=== PATIENT | male | born 1955 | race Caucasian/White ===

== ENCOUNTER 2019-06-29 23:21 | Emergency (ER) | payer OTHER, SELFPAY ==
[~2019-06-29] VITALS: Ht 172.7 cm; Wt 102.3 kg
[2019-06-29 23:21] VITALS: BP 169/85
[2019-06-29] MEDS ORDERED: CILO100T PO (23:41)
[2019-06-29] MEDS ORDERED: DULO1CAP6 PO (23:41)
[2019-06-29] MEDS ORDERED: GABA-843 PO (23:41)
[2019-06-29] MEDS ORDERED: ASPI81TA85 PO (23:41)
[2019-06-29] MEDS ORDERED: REFR0.5D8 OP (23:41)
[2019-06-29] MEDS ORDERED: NESI25TA PO (23:41)
[2019-06-29] MEDS ORDERED: CAPS42.53 EX (23:41)
[2019-06-29] MEDS ORDERED: GLIP10TA PO (23:41)
== END 2019-06-30 00:49 | disposition home or self-care (01) ==
LOC: M ED 23:21
DX: H57.9 Unspecified disorder of eye and adnexa (principal); E11.9 Type 2 diabetes mellitus without complications; F17.200 Nicotine dependence, unspecified, uncomplicated; J44.9 Chronic obstructive pulmonary disease, unspecified; Q27.30 Arteriovenous malformation, site unspecified; Z79.82 Long term (current) use of aspirin; Z79.899 Other long term (current) drug therapy

== ENCOUNTER → 2019-10-31 | Outpatient (CLI) | payer OTHER ==
[~2019-10-31] MED LIST: ASPI81TA85 PO; CAPS42.53 EX; CILO100T PO; DULO1CAP6 PO; GABA-843 PO; GLIP10TA PO; NESI25TA PO; REFR0.5D8 OP
--- NOTE | 2019-10-31 13:41 | REP ---
REASON: Atherosclerosis. PRIORS: None. RIGHT: The ankle brachial index is 0.7. ELECTRONIC SYSTEMS SECURITY ASSESSMENT 130.6 cm/s Biphasic Profunda 127.0 cm/s Triphasic SFA proximal occluded SFA mid occluded SFA distal occluded Popliteal 60.1 to 42.7 cm/s Monophasic NORBERTO proximal 24.7 cm/s Monophasic Tibioperoneal trunk 28.5 cm/s Monophasic CHARGING MACHINE OPERATOR proximal 34.2 cm/s Monophasic CHARGING MACHINE OPERATOR distal 40.2 cm/s Monophasic NORBERTO distal 20.2 cm/s Monophasic LEFT The ankle brachial index is 1.7. ELECTRONIC SYSTEMS SECURITY ASSESSMENT 63.6 cm/s Biphasic Profunda 55.0 cm/s Triphasic SFA proximal occluded SFA mid occluded SFA distal occluded Popliteal 405.9 cm/s Monophasic NORBERTO proximal 20.6 cm/s Monophasic Tibioperoneal trunk 23.7 cm/s Monophasic CHARGING MACHINE OPERATOR proximal 44.3 cm/s Monophasic CHARGING MACHINE OPERATOR distal 34.4 cm/s Monophasic NORBERTO distal 22.2 cm/s Monophasic Note made of retrograde flow in the right popliteal artery. The elevated peak systolic velocity of the left popliteal artery is consistent with high grade stenosis. Electronically Signed by Luther Landa DO 10/31/2019 02:04 P
== END ==
LOC: M RAD 10:01
PROVIDERS: ATTEND Physician Assistant
DX: I70.213 Atherosclerosis of native arteries of extremities with intermittent claudication, bilateral legs (principal)

== ENCOUNTER 2020-01-22 10:00 | Inpatient (IN) | payer OTHER ==
[~2020-01-22 10:00] MED LIST changes: -ASPI81TA85 PO; +ASPI81TA86 PO; -CAPS42.53 EX; +CAPS42.54 EX; +ceFAZolin 2 GM/D5W 50 ML IV BAG (J0690 PER 500MG) ONE
[2020-01-22] MEDS ORDERED: MIDAZOLAM INJ 2MG/2ML VIAL (J2250 PER 1MG) ONE (10:29)
[2020-01-22] MEDS ORDERED: fentaNYL 250 MCG/5 ML INJECTION (J3010) ONE (10:29)
[2020-01-22] MEDS ORDERED: ROCURONIUM BROMIDE 50 MG/5 ML VIAL ONE ×5 (10:29→14:34)
[2020-01-22] MEDS ORDERED: propofoL 200 MG/20 ML VIAL ONE (10:29)
[2020-01-22] MEDS ORDERED: LIDOCAINE 2% 100MG/5ML SDV (FOR ANES.) ONE (10:29)
[2020-01-22] MEDS ORDERED: HEPARIN SOD (PORCINE) 5000UNITS/ML 1ML VIAL/SYRINGE ONE ×4 (11:33→14:06)
[2020-01-22] MEDS ORDERED: BUPIVACAINE/EPIN 0.5% 30 ML VIAL ONE (11:33)
[2020-01-22] MEDS ORDERED: ONDANSETRON 4MG/2ML VIAL ONE (14:34)
[2020-01-22] MEDS ORDERED: SUGAMMADEX SODIUM 500 MG/5 ML VIAL (BRIDION) ONE (14:34)
[2020-01-22] MEDS ORDERED: fentaNYL 100 MCG/2 ML INJECTION (J3010) ONE ×2 (15:01→15:53)
[2020-01-22] MEDS ORDERED: LABETALOL 100MG/20ML VIAL ONE (17:18)
[2020-01-22] MEDS ORDERED: amLODIPine 5 MG TAB ONE (17:26)
[2020-01-22] MEDS ORDERED: PERCOCET 5MG/325MG TAB ONE (23:16)
[2020-01-22] MEDS ORDERED: traZODone 100 MG TAB ONE (23:16)
[2020-01-22] MEDS ORDERED: CEPACOL LOZENGE ONE (23:16)
[2020-01-23] MEDS ORDERED: diazePAM 5 MG TAB ONE (02:25)
[2020-01-23] MEDS ORDERED: oxyCODONE 5MG TAB ONE ×2 (02:29→21:24)
[2020-01-23] MEDS ORDERED: PERCOCET 5MG/325MG TAB ONE ×4 (04:25→18:32)
[2020-01-23] MEDS ORDERED: ASPIRIN 81 MG ENTERIC TAB ONE (08:33)
[2020-01-23] MEDS ORDERED: HumaLOG INSULIN (NovoLOG) PER UNIT ONE (08:33)
[2020-01-23] MEDS ORDERED: SERTRALINE 100 MG TAB ONE (08:33)
[2020-01-23] MEDS ORDERED: ONDANSETRON 4MG/2ML VIAL ONE (17:10)
[2020-01-23] MEDS ORDERED: traZODone 100 MG TAB ONE (21:24)
[2020-01-23] MEDS ORDERED: PERCOCET 5MG/325MG TAB As Ordered ONE (23:50)
[2020-01-24] MEDS ORDERED: PERCOCET 5MG/325MG TAB As Ordered ONE ×2 (04:56→09:43)
[2020-01-24] MEDS ORDERED: SERTRALINE 100 MG TAB As Ordered ONE (09:41)
[2020-01-24] MEDS ORDERED: ASPIRIN 81 MG ENTERIC TAB As Ordered ONE (09:42)
[2020-01-24] MEDS ORDERED: amLODIPine 5 MG TAB As Ordered ONE (09:42)
[2020-03-14 16:43] LABS: HEMATOCRIT 46.5 % (42.0-52.0); HEMOGLOBIN 15.3 g/dl (13.5-17.5); MEAN CORPUSCULAR HEMOGLOBIN 31.2 pg (27.0-33.0); MEAN CORPUSCULAR HGB CONC 32.9 g/dl (32.0-36.5); MEAN CORPUSCULAR VOLUME 94.7 fl (80.0-96.0); PLATELET COUNT, AUTOMATED 162 10^3/uL (150-450); RED BLOOD COUNT 4.91 10^6/uL (4.30-6.10); WHITE BLOOD COUNT 8.5 10^3/uL (4.0-10.0)
[2020-03-14 17:29] LABS: INR 0.92; PARTIAL THROMBOPLASTIN TIME 34.5 SECONDS (24.2-38.5); PROTHROMBIN TIME 12.5 SECONDS (12.5-14.3)
[2020-03-20 19:23] LABS: BASO % 0.2 % (0.0-1.0); EOS # 0.2 10^3/uL (0.0-0.5); EOS % 2.6 % (0.0-3.0); HEMATOCRIT 39.3 % (42.0-52.0); LYMPH % 11.7 % (24.0-44.0); MEAN CORPUSCULAR HEMOGLOBIN 30.9 pg (27.0-33.0); MEAN CORPUSCULAR HGB CONC 32.6 g/dl (32.0-36.5); MEAN CORPUSCULAR VOLUME 94.9 fl (80.0-96.0); MONO # 0.7 10^3/uL (0.0-0.8); MONO % 7.8 % (0.0-5.0); NEUTROPHILS # 6.7 10^3/uL (1.5-8.5); PLATELET COUNT, AUTOMATED 122 10^3/uL (150-450); RED BLOOD COUNT 4.14 10^6/uL (4.30-6.10); WHITE BLOOD COUNT 8.7 10^3/uL (4.0-10.0)
[2020-03-20 19:24] LABS: HEMOGLOBIN 12.8 g/dl (13.5-17.5)
[2020-03-21 18:14] LABS: HEMATOCRIT 36.8 % (42.0-52.0); MEAN CORPUSCULAR HEMOGLOBIN 31.2 pg (27.0-33.0); MEAN CORPUSCULAR HGB CONC 32.6 g/dl (32.0-36.5); MEAN CORPUSCULAR VOLUME 95.6 fl (80.0-96.0); PLATELET COUNT, AUTOMATED 115 10^3/uL (150-450); RED BLOOD COUNT 3.85 10^6/uL (4.30-6.10); WHITE BLOOD COUNT 8.9 10^3/uL (4.0-10.0)
[2020-04-14 22:27] LABS: CK-MB VALUE MASS < 1.0 NG/ML (<3.6); CPK CREATINE PHOSPHOKINASE 61 U/L (39-308); MB/CK RELATIVE INDEX 1.63 (< OR =4)
[2020-04-18 05:27] LABS: BLOOD UREA NITROGEN 14 MG/DL (7-18); CALCIUM LEVEL 8.5 MG/DL (8.8-10.2); CARBON DIOXIDE LEVEL 34 MEQ/L (21-32); CHLORIDE LEVEL 102 MEQ/L (98-107); CREATININE FOR GFR 1.01 MG/DL (0.70-1.30); GLOMERULAR FILTRATION RATE > 60.0 (>49); GLUCOSE, FASTING 176 MG/DL (70-100); POTASSIUM SERUM 4.7 MEQ/L (3.5-5.1); SODIUM LEVEL 138 MEQ/L (136-145)
[2020-04-18 11:12] LABS: BLOOD UREA NITROGEN 15 MG/DL (7-18); CALCIUM LEVEL 8.5 MG/DL (8.8-10.2); CARBON DIOXIDE LEVEL 33 MEQ/L (21-32); CHLORIDE LEVEL 99 MEQ/L (98-107); CREATININE FOR GFR 1.09 MG/DL (0.70-1.30); GLOMERULAR FILTRATION RATE > 60.0 (>49); GLUCOSE, FASTING 209 MG/DL (70-100); POTASSIUM SERUM 4.1 MEQ/L (3.5-5.1); SODIUM LEVEL 136 MEQ/L (136-145)
== END 2020-01-24 12:20 | disposition home or self-care (01) | DRG 254 ==
LOC: M MS5PR 16:00 → UNDOADMIN 16:00
PROVIDERS: ADMIT Internal Medicine; ATTEND Surgery Vascular Surgery
PROC: 04CL0ZZ Extirpation of Matter from Left Femoral Artery, Open Approach (ICD-10-PCS; principal; 2020-01-22)
PROC: 04UL0KZ Supplement Left Femoral Artery with Nonautologous Tissue Substitute, Open Approach (ICD-10-PCS; 2020-01-22)
PROC: 041L0KL Bypass Left Femoral Artery to Popliteal Artery with Nonautologous Tissue Substitute, Open Approach (ICD-10-PCS; 2020-01-22)
DX: I70.212 Atherosclerosis of native arteries of extremities with intermittent claudication, left leg (principal); E11.9 Type 2 diabetes mellitus without complications; I10 Essential (primary) hypertension; J44.9 Chronic obstructive pulmonary disease, unspecified; G47.33 Obstructive sleep apnea (adult) (pediatric); Z79.899 Other long term (current) drug therapy; Z79.82 Long term (current) use of aspirin

== ENCOUNTER → 2020-03-05 | Outpatient (CLI) | payer OTHER ==
[~2020-03-05] MED LIST changes: -ceFAZolin 2 GM/D5W 50 ML IV BAG (J0690 PER 500MG) ONE
--- NOTE | 2020-03-10 11:54 | REP ---
BILATERAL LOWER EXTREMITY ARTERIAL DOPPLER ULTRASOUND HISTORY: Atherosclerosis of the [place] arteries with bilateral lower extremity claudication. COMPARISON STUDY: 10/31/2019. FINDINGS: Ankle brachial indices are measured at 0.8 on the right and 1.1 on the left. Heavily calcified arteries are noted bilaterally throughout. Bilateral superficial femoral artery occlusions are observed. Monophasic waveforms are noted in the [place] arteries distal to and including the popliteal arteries. A patent graft is seen from the left common femoral artery to the tibioperoneal trunk on the left side. LEFT LOWER EXTREMITY BYPASS GRAFT VELOCITY CHART: LEFT (cm/s) Proximal anastomosis 194 Proximal thigh 86 Mid thigh 109 Distal thigh 54 Medial aspect knee 65 Proximal calf 56 Distal anastomosis 60 BILATERAL LOWER EXTREMITY ARTERIAL DOPPLER VELOCITY CHART: LEFT (cm/s) RIGHT (cm/s) C APPLICATION DEVELOPER 79 75 Profunda 41 122 Proximal SFA Occluded Occluded Mid SFA Occluded Occluded Distal SFA Occluded Occluded Popliteal 69 Reverse flow 28 Proximal NORBERTO 45 18 Tibioperoneal trunk 43 24 Proximal COMPOSING ROOM SUPERVISOR 81 35 Distal COMPOSING ROOM SUPERVISOR 73 40 Distal NORBERTO 40 17 MTDD
== END ==
LOC: M RAD 12:20
PROVIDERS: ATTEND Physician Assistant
DX: I70.213 Atherosclerosis of native arteries of extremities with intermittent claudication, bilateral legs (principal)

== ENCOUNTER → 2020-03-12 | Outpatient (CLI) | payer OTHER ==
--- NOTE | 2020-03-15 09:20 | ECWPNPC ---
PATIENT NAME: LILIAN IRWIN : 1955 GENDER: MALE VISIT DATE: 03/12/2020 DISCHARGE DATE: 03/12/20 1048 VISIT LOCKED DATE TIME: PHYSICIAN: FRANCISCO CERVANTES RESOURCE: FRANCISCO CERVANTES REASON FOR APPOINTMENT 1. CHRONIC PAIN- WILL BE ACCOMPANIED BY BROTHER HISTORY OF PRESENT ILLNESS DEPRESSION SCREENING: PHQ-9 LITTLE INTEREST OR PLEASURE IN DOING THINGSSEVERAL DAYS FEELING DOWN, DEPRESSED, OR HOPELESSSEVERAL DAYS TROUBLE FALLING OR STAYING ASLEEP, OR SLEEPING TOO MUCHNEARLY EVERY DAY FEELING TIRED OR HAVING LITTLE ENERGYNEARLY EVERY DAY POOR APPETITE OR OVEREATING NEARLY EVERY DAY FEELING BAD ABOUT YOURSELF-OR THAT YOU ARE A FAILURE OR HAVE LET YOURSELF OR YOUR FAMILY DOWN NEARLY EVERY DAY TROUBLE CONCENTRATING ON THINGS, SUCH READING THE NEWSPAPER OR WATCHING TELEVISION NOT AT ALL MOVING OR SPEAKING SO SLOWLY THAT OTHER PEOPLE COULD HAVE NOTICED. OR THE OPPOSITE- BEING SO FIDGETY OR RESTLESS THAT YOU HAVE BEEN MOVING AROUND A LOT MORE THAN USUALNOT AT ALL THOUGHTS THAT YOU WOULD BE BETTER OFF , OR OF HURTING YOURSELF IN SOME WAY?NEARLY EVERY DAY(CONSIDER SUICIDE ASSESSMENT RISK) TOTAL SCORE:17 INTERPRETATIONMODERATELY SEVERE DEPRESSION PHQ-2 (2015 EDITION) LITTLE INTEREST OR PLEASURE IN DOING THINGS?NEARLY EVERY DAY FEELING DOWN, DEPRESSED, OR HOPELESS?NEARLY EVERY DAY TOTAL SCORE6 64-YEAR-OLD MALE IN FOR CHRONIC PAIN FOLLOW-UP. AT LAST CLINIC VISIT HE WAS STARTED ON BACLOFEN AND ADMITS TODAY THAT HE IS FOUND THIS HELPFUL. PAIN CENTER INTAKE QUESTIONS: DO YOU HAVE A HISTORY OF MRSA? :NO DO YOU TAKE A BLOOD THINNERS? :NO DO YOU HAVE ANY BLEEDING DISORDERS? :NO ANY NEW NUMBNESS OR WEAKNESS IN YOUR LEGS OR ARMS? :YES IN BOTH LEGS AND ARMS ANY PACEMAKER,DEFIBRILLATOR, OR DORSAL COLUMN STIMULATOR? :NO DO YOU HAVE ANY RASHES OR OPEN SORES? :NO ARE YOU ALLERGIC TO IV DYE? :NO ARE YOU DIABETIC? :YES ANY NEW PROBLEMS WITH YOUR MEDICATIONS? :NO HAVE YOU RECEIVED A VACCINE IN THE PAST 30 DAYS? :YES FLU VAC ON Sunday03/09/2020 DO YOU PLAN TO RECEIVE A VACCINE IN THE NEXT 21 DAYS? :NO DO YOU NEED ANY PRESCRIPTION? :YES HE WOULD LIKE TO BE PUT ON OXYCDONE DO YOU TAKE ANY IMMUNOSUPPRESSIVE MEDICATIONS? :NO IS THERE A CHANCE YOU COULD BE ? :NO ARE YOU BREAST FEEDING? :NO GENERAL: - -. FALL RISK SCREENING: SCREENING :TWO OR MORE FALLS WITH INJURY IN THE PAST YEAR FELL AND TORE HIS RETINA AND HAS FALLEN WITH A SEIZURE PAIN SCREENING: PATIENT HAS A COMPLAINT OF ACUTE OR CHRONIC PAIN :YES LOCATION OF PAIN:NECK, UPPER BACK, MID BACK, LOW BACK, LEFT HIP, RIGHT HIP INTENSITY OF PAIN (SCALE OF 1 TO 10):8 WHAT DOES YOUR PAIN FEEL LIKE:BURNING, CONTINOUS DURATION:CONSTANT, ALL DAY PAIN IS INCREASED BY:ACTIVITIES, PROLONGED STANDING, OTHERS WALKING, SITTING PAIN IS DECREASED BY:USE OF PAIN MEDICATIONS, OTHERS HEATING PAD AND LAYING DOWN HELPS NURSING NOTE: PATIENT WITH POSITIVE DEPRESSION SCREENING. PATIENT SEES COUNSELOR AT [facility] AND IS CURENTLY ON DEPRESSION MEDICATION. FRANCISCO CERVANTES EXCHANGE CLERK MADE AWARE. CURRENT MEDICATIONS TAKING ALOGLIPTIN BENZOATE 25 MG TABLET 1 TABLET ORALLY ONCE A DAY TAKING ASPIR-LOW 81 MG TABLET DELAYED RELEASE 1 TABLET ORALLY ONCE A DAY TAKING CHOLECALCIFEROL 25 MCG (1000 UT) CAPSULE 2 CAPSULES ORALLY ONCE A DAY TAKING TYLENOL WITH CODEINE #3 300-30 MG TABLET 1 TABLET NEEDED ORALLY TID TAKING GLIPIZIDE 10 MG TABLET 2 TABLETS ORALLY 2 TIMES A DAY TAKING GLUCOSE 4 GM TABLET CHEWABLE DIRECTED ORALLY TAKING HYDROPHILIC - OINTMENT DIRECTED EXTERNALLY TAKING KETOTIFEN FUMARATE 0.025 % SOLUTION 1 DROP INTO BOTH EYES OPHTHALMIC TWICE A DAY TAKING OLODATEROL HCL 2.5 MCG/ACT AEROSOL SOLUTION 2 PUFFS INHALATION ONCE A DAY TAKING PROPRANOLOL HCL 60 MG CAPSULE EXTENDED RELEASE 1 CAPSULE ORALLY DAILY TAKING ROSUVASTATIN CALCIUM 10 MG TABLET 1 TABLET ORALLY ONCE A DAY TAKING SELENIUM SULFIDE 2.5 % SHAMPOO 1 APPLICATION TO WET SCALP EXTERNALLY DAILY TAKING SERTRALINE HCL 50 MG TABLET 1 TABLET ORALLY ONCE A DAY TAKING TESTOSTERONE 1.62 % GEL 2 PUMPS TO SKIN IN THE MORNING TO SHOULDER, UPPER ARMS OR ABDOMEN TRANSDERMAL ONCE A DAY TAKING TRAZODONE HCL 100 MG TABLET 1 TABLET AT BEDTIME ORALLY ONCE A DAY MEDICATION LIST REVIEWED AND RECONCILED WITH THE PATIENT PAST MEDICAL HISTORY CHRONIC PAIN DEPRESSION PTSD ERIKA ESSENTIAL HTN HYPERLIPIDEMIA 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 SIBLINGS HTNSISTER LIVER CIRRHOSIS. SOCIAL HISTORY GENERAL: TOBACCO USE ARE YOU A:FORMER SMOKER HOW LONG HAS IT BEEN SINCE YOU LAST SMOKED?1-5 YEARS LATEX QUESTIONNAIRE LATEX ALLERGY : HAVE YOU EVER DEVELOPED ANY TYPE OF REACTION AFTER HANDLING LATEX PRODUCTS SUCH RUBBER GLOVES, CONDOMS, DIAPHRAGMS, BALLOONS, SOCKS, OR UNDERWEAR?NO LATEX ALLERGY : HAVE YOU EVER DEVELOPED ANY TYPE OF REACTION DURING OR AFTER DENTAL APPOINTMENT, VAGINAL/RECTAL EXAMINATION, SURGICAL PROCEDURE, OR ANY OTHER EXPOSURE?NO LATEX RISK : HAVE YOU EVER HAD ANY DIFFICULTY BREATHING OR HIVES AFTER EATING OR HANDLING ANY FRUITS, OR VEGETABLES; SUCH KIWI, BANANAS, STONE FRUITS, OR CHESTNUTSNO LATEX RISK : DO YOU HAVE A PREVIOUS PERSONAL HISTORY OF MORE THAN NINE SURGERIES, SPINA BIFIDA, OR REPEATED CATHERIZATIONS? YES - PLEASE INDICATE : > 9 SURGERIES LATEX RISK : ARE YOU FREQUENTLY EXPOSED TO LATEX PRODUCTS IN YOUR OCCUPATION?YES DATE ASKED : 03/12/2020 ALCOHOL SCREENING DID YOU HAVE A DRINK CONTAINING ALCOHOL IN THE PAST YEAR?YES HOW OFTEN DID YOU HAVE A DRINK CONTAINING ALCOHOL IN THE PAST YEAR?FOUR OR MORE TIMES A WEEK (4 POINTS) HOW MANY DRINKS DID YOU HAVE ON A TYPICAL DAY WHEN YOU WERE DRINKING IN THE PAST YEAR?1 OR 2 (0 POINTS) HOW OFTEN DID YOU HAVE SIX OR MORE DRINKS ON ONE OCCASION IN THE PAST YEAR?LESS THAN MONTHLY (1 POINT) POINTS5 INTERPRETATIONPOSITIVE RECREATIONAL DRUG USE DRUG USE?NO CAFFEINE CAFFEINE USE?YES HOW OFTEN AND HOW MUCH? 2/DAY LANGUAGE LANGUAGES SPOKEN:ISRAELI LEARNING BARRIERS / SPECIAL NEEDS BARRIERS TO LEARNING?YES DIFFICULTY WITH SPELLING READING AND WRITING COMPREHENSION HEARING IMPAIRED?NO VISION IMPAIRED?YES :CORRECTIVE LENSES COGNITIVELY IMPAIRED?YES SEE ABOVE READINESS TO LEARN?YES LEARNING PREFERENCES?YES :DEMONSTRATION/VERBAL INSTRUCTION, OTHER (PLEASE COMMENT) HANDS ON LEARNING CAPABILITIES PRESENT?YES EMOTIONAL BARRIERS?YES PTSD DEPRESSION SPECIAL DEVICES?YES :CANE, WHEELCHAIR ONCE IN A WHILE WILL USE CANE SCHOOL PSYCHOLOGIST ASSISTANT NEEDED?NO DOMESTIC VIOLENCE DO YOU FEEL SAFE IN YOUR ENVIRONMENT?YES 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 DIET: HIGH PROTIEN DIET. MARITAL STATUS: .. OTHERS AT HOME: NONE. PAIN CLINIC PFS, CLERGY, PUBLIC HEALTH REFERRALS HAS THE PATIENT BEEN EDUCATED REGARDING HIS/HER PLAN OF CARE?YES HAS THE PATIENT BEEN EDUCATED REGARDING PAIN, THE RISK FOR PAIN, THE IMPORTANCE OF EFFECTIVE PAIN MANAGEMENT, AND THE PAIN ASSESSMENT PROCESS?YES ADVANCE DIRECTIVE ADVANCE DIRECTIVE DISCUSSED WITH PATIENT:YES HCP BROTHER NAIDA IRWIN [phone] HOSPITALIZATION/MAJOR DIAGNOSTIC PROCEDURE SURGERY RELATED REVIEW OF SYSTEMS CONSTITUTIONAL: ANY RECENT FEVER NO . CHILLS NO . WEIGHT CHANGE OF UNKNOWN REASONS NO . GASTROENTEROLOGY: NEW UNEXPLAINABLE CHANGES IN BOWEL CONTROL NO . CONSTIPATION NO . GENITOURINARY: ANY NEW CHANGE IN BLADDER CONTROL? NO . NEUROLOGY: NEW ONSET DIZZINESS OR NEUROLOGICAL CHANGES NOT MENTIONED NO . NEW NUMBNESS OR PAIN PATTERNS NOT MENTIONED AND PERTINENT TO TODAY'S VISIT NO . CARDIOLOGY: NEW CHEST PRESSURE NO . NEW CHEST PAIN NO . RESPIRATORY: UNEXPLAINABLE COUGH NO . NEW SHORTNESS OF BREATH NO . VITAL SIGNS WT 227.8 LBS, HT 60 IN, BMI 44.48 INDEX, BP 177/81 MM HG, REPEAT BP 162/84 MM HG, HR 82 /MIN, RR 18 /MIN, TEMP 97.1 F, OXYGEN SAT % 94%, SAFE IN ENV? (Y/N) YES, NA INITIALS AW 0930, REVIEWED BY: SUNNY. EXAMINATION GENERAL EXAMINATION: GENERALNO ACUTE DISTRESS, WELL NOURISHED AND HYDRATED. PSYCHAPPROPRIATE MOOD AND AFFECT . LUNGS:CLEAR TO AUSCULTATION BILATERALLY, NO WHEEZES, RHONCHI, RALES. HEART:NO MURMURS, REGULAR RATE AND RHYTHM. ASSESSMENTS LOW BACK PAIN - M54.5 (PRIMARY) TREATMENT LOW BACK PAIN START TRAMADOL HCL TABLET, 50 MG, 1 TABLET NEEDED, ORALLY, EVERY 12 HRS NEEDED, 30 DAYS, 60 START BACLOFEN TABLET, 10 MG, 1 TABLET WITH FOOD OR MILK, ORALLY, THREE TIMES A DAY, 30 DAY(S), 90 CLINICAL NOTES: 64-YEAR-OLD MALE IN FOR CHRONIC PAIN FOLLOW-UP. GIVEN PRESENTING SYMPTOMS RECOMMEND INCREASING BACLOFEN TO 10 MG 3 TIMES A DAY, AND ADDING TRAMADOL TWICE A DAY WITH FOLLOW-UP IN ONE MONTH TO DETERMINE EFFICACY OF TREATMENT. PATIENT HAS EXPRESSED UNDERSTANDING OF AND WAS IN AGREEMENT WITH TREATMENT PLAN. GIVEN TIME TO ASK QUESTIONS AND EXPRESS CONCERNS. , ISTOP REGISTRY REVIEWED AND DEMONSTRATES COMPLLIANCE. (REF # [id number] ). PREVENTIVE MEDICINE PAIN CLINIC TEACHING: THE PATIENT HAS BEEN EDUCATED REGARDING HIS/HER PLAN OF CARE : UTOX WAS DONE ALONG WITH CONTROLLED SUBSTANCE AGREEMENT WAS DONE TODAY [id number] PROCEDURE CODES FA211 ESTABILISHED PATIENT [facility] FACILITY CHARGE DISPOSITION & COMMUNICATION FOLLOW UP 4 WEEKS (REASON: NEW MED ) ELECTRONICALLY SIGNED BY RELL GARDNER ON 03/15/2020 AT 09:08 AM EDT DISCLAIMER : THIS IS A VISIT SUMMARY EXTRACTED FROM THE [employer] CHART. IT IS NOT A COPY OF THE [employer] PROGRESS NOTE. EMANI
== END ==
LOC: M PAIN 09:30
PROVIDERS: ATTEND Family Medicine
DX: M54.5 Low back pain (principal); G89.29 Other chronic pain; E11.9 Type 2 diabetes mellitus without complications; G47.33 Obstructive sleep apnea (adult) (pediatric); I10 Essential (primary) hypertension; E78.5 Hyperlipidemia, unspecified; G47.00 Insomnia, unspecified; Z86.59 Personal history of other mental and behavioral disorders; Z87.891 Personal history of nicotine dependence; Z88.5 Allergy status to narcotic agent; Z88.8 Allergy status to other drugs, medicaments and biological substances; E66.01 Morbid (severe) obesity due to excess calories; Z68.41 Body mass index [BMI] 40.0-44.9, adult; Z79.82 Long term (current) use of aspirin; Z79.84 Long term (current) use of oral hypoglycemic drugs; Z79.899 Other long term (current) drug therapy

== ENCOUNTER → 2020-04-09 | Outpatient (CLI) | payer OTHER ==
--- NOTE | 2020-04-13 03:19 | ECWPNPC ---
PATIENT NAME: LILIAN IRWIN : 1955 GENDER: MALE VISIT DATE: 04/09/2020 DISCHARGE DATE: 04/09/20 1103 VISIT LOCKED DATE TIME: PHYSICIAN: FRANCISCO CERVANTES RESOURCE: FRANCISCO CERVANTES REASON FOR APPOINTMENT 1. NEW MED HISTORY OF PRESENT ILLNESS GENERAL: - 64-YEAR-OLD MALE IN FOR CHRONIC PAIN FOLLOW-UP. PATIENT WAS STARTED ON TRAMADOL AND ADMITS TODAY THAT THIS CAUSES DIFFICULTY BREATHING SO HE HAS DISCONTINUED USE. HE RATES HIS PAIN CURRENTLY AT A 9 OUT OF 10 PATIENT STATES HE HAS BEEN ON OXYCODONE IN THE PAST WITH GOOD RELIEF. WE WILL DISCUSS POTENTIALLY PRESCRIBING SAID MEDICATION TODAY. FALL RISK SCREENING: SCREENING :ONE FALL WITH INJURY IN THE PAST YEAR PAIN SCREENING: PATIENT HAS A COMPLAINT OF ACUTE OR CHRONIC PAIN :YES LOCATION OF PAIN:CHEST, HEAD, NECK, LEFT SHOULDER, RIGHT SHOULDER, BOTH SHOULDERS, UPPER BACK, MID BACK, LOW BACK, LEFT HIP, RIGHT HIP, BACK, LEG(S), THIGH(S) INTENSITY OF PAIN (SCALE OF 1 TO 10):9 WHAT DOES YOUR PAIN FEEL LIKE:ACHING, BURNING, CONTINOUS, SHARP DURATION:CONTINOUS, CONSTANT PAIN IS INCREASED BY:ACTIVITIES PAIN IS DECREASED BY:OTHERS NOTHING TREATMENT/MEDICATIONS USED TO MANAGE PAIN:OTC PAIN RELIEVERS, NSAIDS LEVEL OF RELIEF FROM PAIN TREATMENTS IN THE PAST:0% PAIN HAS INTERFERED WITH THE FOLLOWING:BATHING/DRESSING, WALKING ABILITY, HOUSEWORK, SLEEP, TRANSPORTATION, TOILETING NURSING NOTE: -. PAIN CENTER INTAKE QUESTIONS: DO YOU HAVE A HISTORY OF MRSA? :NO DO YOU TAKE A BLOOD THINNERS? :NO DO YOU HAVE ANY BLEEDING DISORDERS? :NO ANY NEW NUMBNESS OR WEAKNESS IN YOUR LEGS OR ARMS? :YES ANY PACEMAKER,DEFIBRILLATOR, OR DORSAL COLUMN STIMULATOR? :NO DO YOU HAVE ANY RASHES OR OPEN SORES? :NO ARE YOU ALLERGIC TO IV DYE? :NO ARE YOU DIABETIC? :YES ANY NEW PROBLEMS WITH YOUR MEDICATIONS? :YES DON'T WORK, MAKE TROUBLE BREATHING-TRAMADOL HAVE YOU RECEIVED A VACCINE IN THE PAST 30 DAYS? :YES IF SO WHAT VACCINE AND WHEN? FLU VACCINE 03/2020 DO YOU PLAN TO RECEIVE A VACCINE IN THE NEXT 21 DAYS? :NO DO YOU NEED ANY PRESCRIPTION? :NO DO YOU TAKE ANY IMMUNOSUPPRESSIVE MEDICATIONS? :NO IS THERE A CHANCE YOU COULD BE ? :NO ARE YOU BREAST FEEDING? :NO CURRENT MEDICATIONS TAKING ALOGLIPTIN BENZOATE 25 MG TABLET 1 TABLET ORALLY ONCE A DAY TAKING ASPIR-LOW 81 MG TABLET DELAYED RELEASE 1 TABLET ORALLY ONCE A DAY TAKING CHOLECALCIFEROL 25 MCG (1000 UT) CAPSULE 2 CAPSULES ORALLY ONCE A DAY TAKING TYLENOL WITH CODEINE #3 300-30 MG TABLET 1 TABLET NEEDED ORALLY TID TAKING GLIPIZIDE 10 MG TABLET 2 TABLETS ORALLY 2 TIMES A DAY TAKING GLUCOSE 4 GM TABLET CHEWABLE DIRECTED ORALLY TAKING HYDROPHILIC - OINTMENT DIRECTED EXTERNALLY TAKING KETOTIFEN FUMARATE 0.025 % SOLUTION 1 DROP INTO BOTH EYES OPHTHALMIC TWICE A DAY TAKING OLODATEROL HCL 2.5 MCG/ACT AEROSOL SOLUTION 2 PUFFS INHALATION ONCE A DAY TAKING PROPRANOLOL HCL 60 MG CAPSULE EXTENDED RELEASE 1 CAPSULE ORALLY DAILY TAKING ROSUVASTATIN CALCIUM 10 MG TABLET 1 TABLET ORALLY ONCE A DAY TAKING SELENIUM SULFIDE 2.5 % SHAMPOO 1 APPLICATION TO WET SCALP EXTERNALLY DAILY TAKING SERTRALINE HCL 50 MG TABLET 1 TABLET ORALLY ONCE A DAY TAKING TESTOSTERONE 1.62 % GEL 2 PUMPS TO SKIN IN THE MORNING TO SHOULDER, UPPER ARMS OR ABDOMEN TRANSDERMAL ONCE A DAY TAKING TRAZODONE HCL 100 MG TABLET 1 TABLET AT BEDTIME ORALLY ONCE A DAY TAKING TRAMADOL HCL 50 MG TABLET 1 TABLET NEEDED ORALLY EVERY 12 HRS NEEDED TAKING BACLOFEN 10 MG TABLET 1 TABLET WITH FOOD OR MILK ORALLY THREE TIMES A DAY MEDICATION LIST REVIEWED AND RECONCILED WITH THE PATIENT PAST MEDICAL HISTORY CHRONIC PAIN DEPRESSION PTSD ERIKA ESSENTIAL HTN HYPERLIPIDEMIA 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 SIBLINGS HTNSISTER LIVER CIRRHOSIS. SOCIAL HISTORY GENERAL: TOBACCO USE ARE YOU A:FORMER SMOKER HOW LONG HAS IT BEEN SINCE YOU LAST SMOKED?1-5 YEARS LATEX QUESTIONNAIRE LATEX ALLERGY : HAVE YOU EVER DEVELOPED ANY TYPE OF REACTION AFTER HANDLING LATEX PRODUCTS SUCH RUBBER GLOVES, CONDOMS, DIAPHRAGMS, BALLOONS, SOCKS, OR UNDERWEAR?NO LATEX ALLERGY : HAVE YOU EVER DEVELOPED ANY TYPE OF REACTION DURING OR AFTER DENTAL APPOINTMENT, VAGINAL/RECTAL EXAMINATION, SURGICAL PROCEDURE, OR ANY OTHER EXPOSURE?NO DATE ASKED : 03/12/2020 LATEX RISK : HAVE YOU EVER HAD ANY DIFFICULTY BREATHING OR HIVES AFTER EATING OR HANDLING ANY FRUITS, OR VEGETABLES; SUCH KIWI, BANANAS, STONE FRUITS, OR CHESTNUTSNO LATEX RISK : DO YOU HAVE A PREVIOUS PERSONAL HISTORY OF MORE THAN NINE SURGERIES, SPINA BIFIDA, OR REPEATED CATHERIZATIONS? YES - PLEASE INDICATE : > 9 SURGERIES LATEX RISK : ARE YOU FREQUENTLY EXPOSED TO LATEX PRODUCTS IN YOUR OCCUPATION?YES ALCOHOL SCREENING DID YOU HAVE A DRINK CONTAINING ALCOHOL IN THE PAST YEAR?YES HOW OFTEN DID YOU HAVE SIX OR MORE DRINKS ON ONE OCCASION IN THE PAST YEAR?LESS THAN MONTHLY (1 POINT) HOW MANY DRINKS DID YOU HAVE ON A TYPICAL DAY WHEN YOU WERE DRINKING IN THE PAST YEAR?1 OR 2 (0 POINTS) HOW OFTEN DID YOU HAVE A DRINK CONTAINING ALCOHOL IN THE PAST YEAR?FOUR OR MORE TIMES A WEEK (4 POINTS) POINTS5 INTERPRETATIONPOSITIVE RECREATIONAL DRUG USE DRUG USE?NO CAFFEINE CAFFEINE USE?YES HOW OFTEN AND HOW MUCH? 2/DAY LANGUAGE LANGUAGES SPOKEN:SERBIAN LEARNING BARRIERS / SPECIAL NEEDS BARRIERS TO LEARNING?YES DIFFICULTY WITH SPELLING READING AND WRITING COMPREHENSION HEARING IMPAIRED?NO VISION IMPAIRED?YES COGNITIVELY IMPAIRED?YES SEE ABOVE :CORRECTIVE LENSES READINESS TO LEARN?YES LEARNING PREFERENCES?YES :DEMONSTRATION/VERBAL INSTRUCTION, OTHER (PLEASE COMMENT) HANDS ON LEARNING CAPABILITIES PRESENT?YES EMOTIONAL BARRIERS?YES PTSD DEPRESSION SPECIAL DEVICES?YES :CANE, WHEELCHAIR ONCE IN A WHILE WILL USE CANE TANK TRUCK DRIVER NEEDED?NO DOMESTIC VIOLENCE DO YOU FEEL SAFE IN YOUR ENVIRONMENT?YES 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 DIET: HIGH PROTIEN DIET. MARITAL STATUS: .. OTHERS AT HOME: NONE. PAIN CLINIC PFS, CLERGY, PUBLIC HEALTH REFERRALS HAS THE PATIENT BEEN EDUCATED REGARDING HIS/HER PLAN OF CARE?YES HAS THE PATIENT BEEN EDUCATED REGARDING PAIN, THE RISK FOR PAIN, THE IMPORTANCE OF EFFECTIVE PAIN MANAGEMENT, AND THE PAIN ASSESSMENT PROCESS?YES ADVANCE DIRECTIVE ADVANCE DIRECTIVE DISCUSSED WITH PATIENT:YES HCP BROTHER NAIDA IRWIN [phone] HOSPITALIZATION/MAJOR DIAGNOSTIC PROCEDURE SURGERY RELATED REVIEW OF SYSTEMS CONSTITUTIONAL: ANY RECENT FEVER NO . CHILLS NO . WEIGHT CHANGE OF UNKNOWN REASONS NO . GASTROENTEROLOGY: NEW UNEXPLAINABLE CHANGES IN BOWEL CONTROL NO . CONSTIPATION NO . GENITOURINARY: ANY NEW CHANGE IN BLADDER CONTROL? NO . NEUROLOGY: NEW ONSET DIZZINESS OR NEUROLOGICAL CHANGES NOT MENTIONED NO . NEW NUMBNESS OR PAIN PATTERNS NOT MENTIONED AND PERTINENT TO TODAY'S VISIT NO . CARDIOLOGY: NEW CHEST PRESSURE NO . NEW CHEST PAIN NO . RESPIRATORY: UNEXPLAINABLE COUGH NO . NEW SHORTNESS OF BREATH NO . VITAL SIGNS WT 231.4 LBS, HT 60 IN, BMI 45.19 INDEX, BP 164/79 MM HG, HR 81 /MIN, RR 18 /MIN, TEMP 99.4 F, OXYGEN SAT % 98%, NA INITIALS AW 1017, REVIEWED BY: EM. EXAMINATION GENERAL EXAMINATION: GENERALNO ACUTE DISTRESS, WELL NOURISHED AND HYDRATED. PSYCHAPPROPRIATE MOOD AND AFFECT . LUNGS:CLEAR TO AUSCULTATION BILATERALLY, NO WHEEZES, RHONCHI, RALES. HEART:NO MURMURS, REGULAR RATE AND RHYTHM. ASSESSMENTS LOW BACK PAIN - M54.5 (PRIMARY) TREATMENT LOW BACK PAIN STOP TRAMADOL HCL TABLET, 50 MG, 1 TABLET NEEDED, ORALLY, EVERY 12 HRS NEEDED, 30 DAYS, 60 START PERCOCET TABLET, 5-325 MG, 1 TABLET NEEDED, ORALLY, EVERY 12 HRS, 30 DAYS, 60 NOTES: 64-YEAR-OLD MALE IN FOR CHRONIC PAIN FOLLOW-UP. GIVEN PRESENTING SYMPTOMS RECOMMENDED STARTING PERCOCET 5/325 MG TWICE A DAY WITH FOLLOW-UP IN ONE MONTH TO DETERMINE EFFICACY TREATMENT. PATIENT HAS EXPRESSED UNDERSTANDING OF AND WAS IN AGREEMENT WITH TREATMENT PLAN. GIVEN TIME TO ASK QUESTIONS AND EXPRESS CONCERNS. , ISTOP REGISTRY REVIEWED AND DEMONSTRATES COMPLLIANCE. (REF # [id number] ) BRINGS IN MEDICATIONS WHICH IS APPROPRIATE FOR WHAT WAS DISPENSED. RECENT URINE TOXICOLOGY REVIEWED. NO UNAUTHORIZED MEDICATIONS. NO ILLICIT SUBSTANCES AND PRESCRIBED MEDICATIONS WERE PRESENT. PROCEDURE CODES FA211 ESTABILISHED PATIENT [facility] CHARGE DISPOSITION & COMMUNICATION FOLLOW UP 4 WEEKS (REASON: BACK PAIN) ELECTRONICALLY SIGNED BY RELL GARDNER ON 04/12/2020 AT 09:27 AM EST DISCLAIMER : THIS IS A VISIT SUMMARY EXTRACTED FROM THE [employer] CHART. IT IS NOT A COPY OF THE [employer] PROGRESS NOTE. EMANI
== END ==
LOC: M PAIN 10:15
PROVIDERS: ATTEND Family Medicine
DX: M54.5 Low back pain (principal); G89.29 Other chronic pain; E11.9 Type 2 diabetes mellitus without complications; G47.33 Obstructive sleep apnea (adult) (pediatric); I10 Essential (primary) hypertension; E78.5 Hyperlipidemia, unspecified; J44.9 Chronic obstructive pulmonary disease, unspecified; G47.00 Insomnia, unspecified; Z86.59 Personal history of other mental and behavioral disorders; Z87.891 Personal history of nicotine dependence; Z88.5 Allergy status to narcotic agent; Z88.8 Allergy status to other drugs, medicaments and biological substances; E66.01 Morbid (severe) obesity due to excess calories; Z68.42 Body mass index [BMI] 45.0-49.9, adult; Z79.82 Long term (current) use of aspirin; Z79.84 Long term (current) use of oral hypoglycemic drugs; Z79.899 Other long term (current) drug therapy

== ENCOUNTER → 2020-05-04 | Outpatient (CLI) | payer OTHER ==
[~2020-05-04] MED LIST changes: +AMLO25TA PO; +ATEN25TA PO; +CLOP75TA2 PO; +ECOT81TA5 PO; +INDE60CA4 PO; +PERC5TAB12 PO
--- NOTE | 2020-05-06 01:47 | ECWPNPC ---
PATIENT NAME: LILIAN IRWIN : 1955 GENDER: MALE VISIT DATE: 05/04/2020 DISCHARGE DATE: 05/04/20 1126 VISIT LOCKED DATE TIME: PHYSICIAN: FRANCISCO CERVANTES RESOURCE: FRANCISCO CERVANTES REASON FOR APPOINTMENT 1. BACK PAIN HISTORY OF PRESENT ILLNESS PAIN CENTER INTAKE QUESTIONS: 64-YEAR-OLD MALE PATIENT IN FOR CHRONIC PAIN FOLLOW-UP. HE RATES HIS PAIN CURRENTLY AT A 10 OUT OF 10. HE DOES FEELS MEDICATIONS ARE HELPFUL HOWEVER IT IS NOT COVERING HIS PAIN AT CURRENT DOSAGE. GENERAL: -. FALL RISK SCREENING: SCREENING :NO FALLS REPORTED IN THE LAST YEAR PAIN SCREENING: PATIENT HAS A COMPLAINT OF ACUTE OR CHRONIC PAIN :YES LOCATION OF PAIN:UPPER BACK INTENSITY OF PAIN (SCALE OF 1 TO 10):10 WHAT DOES YOUR PAIN FEEL LIKE:CONTINOUS, SHARP PAIN IS INCREASED BY:ACTIVITIES, PROLONGED STANDING PAIN IS DECREASED BY:OTHERS LAYING DOWN NURSING NOTE: -. CURRENT MEDICATIONS TAKING FLAX SEEDS - POWDER DIRECTED ORALLY TAKING ALOGLIPTIN BENZOATE 25 MG TABLET 1 TABLET ORALLY ONCE A DAY TAKING ASPIR-LOW 81 MG TABLET DELAYED RELEASE 1 TABLET ORALLY ONCE A DAY TAKING CHOLECALCIFEROL 25 MCG (1000 UT) CAPSULE 2 CAPSULES ORALLY ONCE A DAY TAKING GLIPIZIDE 10 MG TABLET 2 TABLETS ORALLY 2 TIMES A DAY TAKING GLUCOSE 4 GM TABLET CHEWABLE DIRECTED ORALLY TAKING KETOTIFEN FUMARATE 0.025 % SOLUTION 1 DROP INTO BOTH EYES OPHTHALMIC TWICE A DAY TAKING OLODATEROL HCL 2.5 MCG/ACT AEROSOL SOLUTION 2 PUFFS INHALATION ONCE A DAY TAKING SELENIUM SULFIDE 2.5 % SHAMPOO 1 APPLICATION TO WET SCALP EXTERNALLY DAILY TAKING TESTOSTERONE 1.62 % GEL 2 PUMPS TO SKIN IN THE MORNING TO SHOULDER, UPPER ARMS OR ABDOMEN TRANSDERMAL ONCE A DAY TAKING BACLOFEN 10 MG TABLET 1 TABLET WITH FOOD OR MILK ORALLY THREE TIMES A DAY TAKING PERCOCET 5-325 MG TABLET 1 TABLET NEEDED ORALLY EVERY 12 HRS NOT-TAKING TYLENOL WITH CODEINE #3 300-30 MG TABLET 1 TABLET NEEDED ORALLY TID NOT-TAKING HYDROPHILIC - OINTMENT DIRECTED EXTERNALLY NOT-TAKING PROPRANOLOL HCL 60 MG CAPSULE EXTENDED RELEASE 1 CAPSULE ORALLY DAILY NOT-TAKING ROSUVASTATIN CALCIUM 10 MG TABLET 1 TABLET ORALLY ONCE A DAY NOT-TAKING SERTRALINE HCL 50 MG TABLET 1 TABLET ORALLY ONCE A DAY NOT-TAKING TRAZODONE HCL 100 MG TABLET 1 TABLET AT BEDTIME ORALLY ONCE A DAY MEDICATION LIST REVIEWED AND RECONCILED WITH THE PATIENT PAST MEDICAL HISTORY CHRONIC PAIN DEPRESSION PTSD ERIKA ESSENTIAL HTN HYPERLIPIDEMIA 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 SIBLINGS HTNSISTER LIVER CIRRHOSIS. SOCIAL HISTORY GENERAL: TOBACCO USE ARE YOU A:FORMER SMOKER HOW LONG HAS IT BEEN SINCE YOU LAST SMOKED?1-5 YEARS LATEX QUESTIONNAIRE LATEX ALLERGY : HAVE YOU EVER DEVELOPED ANY TYPE OF REACTION AFTER HANDLING LATEX PRODUCTS SUCH RUBBER GLOVES, CONDOMS, DIAPHRAGMS, BALLOONS, SOCKS, OR UNDERWEAR?NO LATEX ALLERGY : HAVE YOU EVER DEVELOPED ANY TYPE OF REACTION DURING OR AFTER DENTAL APPOINTMENT, VAGINAL/RECTAL EXAMINATION, SURGICAL PROCEDURE, OR ANY OTHER EXPOSURE?NO LATEX RISK : HAVE YOU EVER HAD ANY DIFFICULTY BREATHING OR HIVES AFTER EATING OR HANDLING ANY FRUITS, OR VEGETABLES; SUCH KIWI, BANANAS, STONE FRUITS, OR CHESTNUTSNO LATEX RISK : DO YOU HAVE A PREVIOUS PERSONAL HISTORY OF MORE THAN NINE SURGERIES, SPINA BIFIDA, OR REPEATED CATHERIZATIONS? YES - PLEASE INDICATE : > 9 SURGERIES LATEX RISK : ARE YOU FREQUENTLY EXPOSED TO LATEX PRODUCTS IN YOUR OCCUPATION?YES DATE ASKED : 05/04/2020 ALCOHOL SCREENING DID YOU HAVE A DRINK CONTAINING ALCOHOL IN THE PAST YEAR?YES HOW OFTEN DID YOU HAVE A DRINK CONTAINING ALCOHOL IN THE PAST YEAR?FOUR OR MORE TIMES A WEEK (4 POINTS) HOW MANY DRINKS DID YOU HAVE ON A TYPICAL DAY WHEN YOU WERE DRINKING IN THE PAST YEAR?1 OR 2 (0 POINTS) HOW OFTEN DID YOU HAVE SIX OR MORE DRINKS ON ONE OCCASION IN THE PAST YEAR?LESS THAN MONTHLY (1 POINT) POINTS5 INTERPRETATIONPOSITIVE RECREATIONAL DRUG USE DRUG USE?NO CAFFEINE CAFFEINE USE?YES HOW OFTEN AND HOW MUCH? 2/DAY LANGUAGE LANGUAGES SPOKEN:ETHIOPIAN LEARNING BARRIERS / SPECIAL NEEDS BARRIERS TO LEARNING?YES DIFFICULTY WITH SPELLING READING AND WRITING COMPREHENSION HEARING IMPAIRED?NO VISION IMPAIRED?YES COGNITIVELY IMPAIRED?YES SEE ABOVE :CORRECTIVE LENSES READINESS TO LEARN?YES LEARNING PREFERENCES?YES :DEMONSTRATION/VERBAL INSTRUCTION, OTHER (PLEASE COMMENT) HANDS ON LEARNING CAPABILITIES PRESENT?YES EMOTIONAL BARRIERS?YES PTSD DEPRESSION SPECIAL DEVICES?YES :CANE, WHEELCHAIR ONCE IN A WHILE WILL USE CANE ROLLER SKATES ASSEMBLER NEEDED?NO DOMESTIC VIOLENCE DO YOU FEEL SAFE IN YOUR ENVIRONMENT?YES 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 DIET: HIGH PROTIEN DIET. MARITAL STATUS: .. OTHERS AT HOME: NONE. PAIN CLINIC PFS, CLERGY, PUBLIC HEALTH REFERRALS HAS THE PATIENT BEEN EDUCATED REGARDING HIS/HER PLAN OF CARE?YES HAS THE PATIENT BEEN EDUCATED REGARDING PAIN, THE RISK FOR PAIN, THE IMPORTANCE OF EFFECTIVE PAIN MANAGEMENT, AND THE PAIN ASSESSMENT PROCESS?YES ADVANCE DIRECTIVE ADVANCE DIRECTIVE DISCUSSED WITH PATIENT:YES HCP BROTHER NAIDA IRWIN [phone] HOSPITALIZATION/MAJOR DIAGNOSTIC PROCEDURE SURGERY RELATED REVIEW OF SYSTEMS CONSTITUTIONAL: ANY RECENT FEVER NO . CHILLS NO . WEIGHT CHANGE OF UNKNOWN REASONS NO . GASTROENTEROLOGY: NEW UNEXPLAINABLE CHANGES IN BOWEL CONTROL NO . CONSTIPATION NO . GENITOURINARY: ANY NEW CHANGE IN BLADDER CONTROL? NO . NEUROLOGY: NEW ONSET DIZZINESS OR NEUROLOGICAL CHANGES NOT MENTIONED NO . NEW NUMBNESS OR PAIN PATTERNS NOT MENTIONED AND PERTINENT TO TODAY'S VISIT NO . CARDIOLOGY: NEW CHEST PRESSURE NO . NEW CHEST PAIN NO . RESPIRATORY: UNEXPLAINABLE COUGH NO . NEW SHORTNESS OF BREATH NO . VITAL SIGNS WT 226.6 LBS, HT 60 IN, BMI 44.25 INDEX, BP 143/79 MM HG, HR 80 /MIN, RR 18 /MIN, TEMP 97.3 F, OXYGEN SAT % 96%, NA INITIALS SC 10:59. EXAMINATION GENERAL EXAMINATION: GENERALNO ACUTE DISTRESS, WELL NOURISHED AND HYDRATED. PSYCHAPPROPRIATE MOOD AND AFFECT . LUNGS:CLEAR TO AUSCULTATION BILATERALLY, NO WHEEZES, RHONCHI, RALES. HEART:NO MURMURS, REGULAR RATE AND RHYTHM. ASSESSMENTS LOW BACK PAIN - M54.5 (PRIMARY) TREATMENT LOW BACK PAIN INCREASE PERCOCET TABLET, 5-325 MG, 1 TABLET NEEDED, ORALLY, EVERY 8 HRS PRN, 30 DAYS, 90 NOTES: 64-YEAR-OLD MALE IN FOR CHRONIC PAIN FOLLOW-UP. GIVEN PRESENTING SYMPTOMS RECOMMEND INCREASING PERCOCET DOSING TO 3 TIMES A DAY WITH FOLLOW-UP IN 2 MONTHS. PATIENT HAS EXPRESSED UNDERSTANDING OF AND WAS IN AGREEMENT WITH TREATMENT PLAN. GIVEN TIME TO ASK QUESTIONS AND EXPRESS CONCERNS. , ISTOP REGISTRY REVIEWED AND DEMONSTRATES COMPLLIANCE. (REF # ) BRINGS IN MEDICATIONS WHICH IS APPROPRIATE FOR WHAT WAS DISPENSED. RECENT URINE TOXICOLOGY REVIEWED. NO UNAUTHORIZED MEDICATIONS. NO ILLICIT SUBSTANCES AND PRESCRIBED MEDICATIONS WERE PRESENT. PROCEDURE CODES FA211 ESTABILISHED PATIENT [facility] CHARGE DISPOSITION & COMMUNICATION FOLLOW UP 2 MONTHS (REASON: BACK PAIN) ELECTRONICALLY SIGNED BY RELL GARDNER ON 05/05/2020 AT 09:28 AM EST DISCLAIMER : THIS IS A VISIT SUMMARY EXTRACTED FROM THE [employer] CHART. IT IS NOT A COPY OF THE [employer] PROGRESS NOTE. EMANI
== END ==
LOC: M PAIN 10:30
PROVIDERS: ATTEND Family Medicine
DX: M54.5 Low back pain (principal); G89.29 Other chronic pain; G47.33 Obstructive sleep apnea (adult) (pediatric); E11.9 Type 2 diabetes mellitus without complications; G47.00 Insomnia, unspecified; Z86.59 Personal history of other mental and behavioral disorders; Z87.891 Personal history of nicotine dependence; Z88.5 Allergy status to narcotic agent; Z88.8 Allergy status to other drugs, medicaments and biological substances; E66.01 Morbid (severe) obesity due to excess calories; Z68.41 Body mass index [BMI] 40.0-44.9, adult; Z79.82 Long term (current) use of aspirin; Z79.84 Long term (current) use of oral hypoglycemic drugs; Z79.899 Other long term (current) drug therapy

== ENCOUNTER → 2020-05-10 | Outpatient (CLI) | payer OTHER ==
--- NOTE | 2020-04-28 15:27 | HPEPDOC ---
[facility] Medical History & Physical Date of Admission May 10, 2020 Date of Service: May 10, 2020 History and Physical Vascular surgery. Dr. Fuller HISTORY OF PRESENT ILLNESS: This is a very pleasant 64-year-old patient with severe bilateral lower extremity recurrent peripheral vascular disease status post failed bilateral femoral to below-knee popliteal bypasses with saphenous vein by another provider. The patient is status post left redo femoral to below- knee bypass first a few months ago. He did very well from this and his incisions are healed and he has good perfusion to the left lower extremity and resolution of his left lower extremity claudication. His recent arterial duplex postop shows that the bypass is widely patent, still monophasic tibial flow but definitely improved. The right lower extremity reveals chronic SFA occlusion, known, and still patent flow through the popliteal and tibials. Plan is to proceed with Right re do femoral to below-knee popliteal bypass, with cadaver vein as per Dr Fuller 05/10/20. 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 FAMILY HISTORY: DM,HTN. ALLERGIES: Please see below. REVIEW OF SYSTEMS: Const: Reports weight gain, but denies chills, fever and weight loss. Eyes: New vision changes ENMT: Denies hearing loss. Denies congestion. Denies dysphagia. CV: Reports hyperlipidemia, but denies chest pain and palpitations. Resp: Denies cough, hemoptysis and shortness of breath. GI: Denies abdominal pain, constipation, diarrhea, nausea and vomiting. Positive obesity. Musculo: Reports intermittent claudication, but denies myalgia, pain and trouble walking. Skin: Denies skin cancer, rash and wound. Neuro: Reports seizures but denies focal deficit and headache. Psych: Denies anxiety and depression. Endocrine: Reports diabetes but denies hyperthyroidism and hypothyroidism. Nathan/Lymph: Denies anemia and excessive bruising. HOME MEDICATIONS: Please see below. PHYSICAL EXAMINATION: Exam: Const: Appears medically stable. No signs of apparent distress present. Head/Face: Normal on inspection. ENMT: Tympanic membranes: intact. External nose WNL. Neck: Supple, no carotid bruits present Resp: No wheezing. Clear to auscultation bilaterally. CV: Rate is regular. Rhythm is regular. Abdomen: Bowel sounds are positive. Abdomen is soft, nontender, and nondistended. Lymph: No palpable or visible regional lymphadenopathy. Musculo:Gait steady, distal pulses not palpable. Strong biphasic signal over the left femoropopliteal bypass, monophasic PT and AT signals left lower extremity. Right lower extremity popliteal artery and tibial arteries are monophasic flow. Left foot is warm and well-perfused with less than 1 second capillary refill, right foot is a bit cooler with 3 second capillary refill. Wounds noted on the extremities. Left groin and calf incisions from bypass surgery are well healed. Skin:No rashes or lesions Neuro:Alert and oriented x3, moves all extremities equally, no focal neurologic deficits noted. Psych: Pleasant and cooperative ASSESSMENT/PLAN: 64-year-old gentleman status post left redo femoropopliteal bypass with cadaver vein several months ago, now well healed, ready now for his right redo femoral-popliteal bypass with cadaver vein. Informed consent placed with the chart. Transfusion consent placed with the chart. Hold Plavix 5 days prior to surgery, do not hold aspirin. Cardiology clearance and stress test requested and to be placed with the chart. PCP clearance requested and to be placed with the chart. NPO IVF as per Anesthesia Admission labs CBC, BMP, INR, PTT, type and screen. Ancef 2 gm admission IV pre op. Vital Signs Admission vital signs pending Laboratory Data Labs 24H Admission labs pending Home Medications Scheduled Alogliptin Benzoate (Nesina) 25 Mg Tablet, 25 MG PO DAILY Amlodipine Besylate (Amlodipine Besylate) 2.5 Mg Tablet, 5 MG PO DAILY Aspirin (Ecotrin) 81 Mg Tablet.dr, 81 MG PO DAILY Carboxymethylcellulose Sodium (Refresh Tears) 15 Ml Drops, 1 DROP OP QID Propranolol Hcl (Inderal LA) 60 Mg Cap.sa.24h, 60 MG PO DAILY Scheduled PRN Oxycodone HCl/Acetaminophen (Percocet 5-325 mg Tablet) 1 Each Tablet, 2 TAB PO Q6H PRN for PAIN Miscellaneous Medications Capsaicin (Capsaicin) 42.5 Gm Cream..g., 0.1 % EX Glipizide (Glipizide) 10 Mg Tablet, 10 MG PO Allergies Coded Allergies: No Known Allergies (Unverified , 06/29/19) A-FIB/CHADSVASC A-FIB History Current/History of A-Fib/PAF?: No Current PO Anticoag Therapy: No Jeniffer Hess Apr 28, 2020 15:27
[~2020-05-10] VITALS: Ht 172.7 cm; Wt 100.7 kg
[~2020-05-10] MED LIST changes: +D-101000 PO; +HEPARIN SOD (PORCINE) 5000UNITS/ML 1ML VIAL/SYRINGE As Ordered ONE; +HYDROmorphone HCL 2 MG/ML 1ML VIAL (J1170) As Ordered ONE; +ISOVUE-300 61% 50ML VIAL As Ordered ONE; +LIDOCAINE 2% 100MG/5ML SDV (FOR ANES.) As Ordered ONE; +LIDOCAINE W/EPINEPHRINE 1% 20ML VIAL As Ordered ONE; +LR 1,000 ML IV ONE; +MIDAZOLAM INJ 2MG/2ML VIAL (J2250 PER 1MG) As Ordered ONE; +ONDANSETRON 4MG/2ML VIAL As Ordered ONE; +ROCURONIUM BROMIDE 50 MG/5 ML VIAL As Ordered ONE; +ROSU20TA5 PO; +THROMBIN SOLN 20,000 UNITS KIT As Ordered ONE; +ceFAZolin SOD 2 GM in IV 1 EA IV ONE; +dexameTHASONE 4 MG/ML 1ML VIAL (J1100 PER 1MG) As Ordered ONE; +fentaNYL 100 MCG/2 ML INJECTION (J3010) As Ordered ONE; +propofoL 200 MG/20 ML VIAL As Ordered ONE
[2020-05-10 09:02] VITALS: BP 150/74
[2020-05-10 09:06] LABS: HEMATOCRIT 42.6 % (42.0-52.0); HEMOGLOBIN 13.7 g/dl (13.5-17.5); MEAN CORPUSCULAR HGB CONC 32.2 g/dl (32.0-36.5); MEAN CORPUSCULAR VOLUME 90.3 fl (80.0-96.0); PLATELET COUNT, AUTOMATED 135 10^3/uL (150-450); RED BLOOD COUNT 4.72 10^6/uL (4.30-6.10); WHITE BLOOD COUNT 6.4 10^3/uL (4.0-10.0)
[2020-05-10 09:31] LABS: BLOOD UREA NITROGEN 16 MG/DL (7-18); CALCIUM LEVEL 9.3 MG/DL (8.8-10.2); CARBON DIOXIDE LEVEL 28 MEQ/L (21-32); CHLORIDE LEVEL 104 MEQ/L (98-107); CREATININE FOR GFR 0.94 MG/DL (0.70-1.30); GLOMERULAR FILTRATION RATE > 60.0 (>49); GLUCOSE, FASTING 170 MG/DL (70-100); POTASSIUM SERUM 4.4 MEQ/L (3.5-5.1); SODIUM LEVEL 137 MEQ/L (136-145)
[2020-05-10 10:01] LABS: INR 0.91; PROTHROMBIN TIME 12.4 SECONDS (12.5-14.3)
[2020-05-10 10:02] LABS: PARTIAL THROMBOPLASTIN TIME 29.4 SECONDS (24.2-38.5)
--- NOTE | 2020-05-11 07:52 | ROOPDOC ---
[facility] Report Of Operation Report of Operation DATE OF PROCEDURE: 05/10/20 - procedure cancelled because patient did not hold his plavix. He has had multiple failed revascularizations in the past, thus we will face extensive scar tissue for this redo bypass, and it will be challenging enough as it is without adding the increased bleeding risk for an extensive open operation on plavix. I explained this to the patient. I believe he was confused with his preop instructions because he also has another surgery scheduled in May for a pilonidal cyst removal and I believe he may have mixed up his preop surgery instructions. Therefore, we will reschedule this procedure after his pilonidal cyst removal, likely in June 2020, so he does not have to coordinate multiple sets of instructions. NENO HARMAN MD May 11, 2020 07:52
== END ==
LOC: M OR 08:32 → M LAB 08:32 → UNDOADMIN 08:32 → EDSTATUS 10:00
PROVIDERS: ATTEND Surgery Vascular Surgery
DX: Z01.818 Encounter for other preprocedural examination (principal); I70.209 Unspecified atherosclerosis of native arteries of extremities, unspecified extremity; Z79.01 Long term (current) use of anticoagulants

== ENCOUNTER → 2020-05-26 | Outpatient (CLI) | payer OTHER ==
[~2020-05-26] MED LIST changes: -HEPARIN SOD (PORCINE) 5000UNITS/ML 1ML VIAL/SYRINGE As Ordered ONE; -HYDROmorphone HCL 2 MG/ML 1ML VIAL (J1170) As Ordered ONE; -ISOVUE-300 61% 50ML VIAL As Ordered ONE; -LIDOCAINE 2% 100MG/5ML SDV (FOR ANES.) As Ordered ONE; -LIDOCAINE W/EPINEPHRINE 1% 20ML VIAL As Ordered ONE; -LR 1,000 ML IV ONE; -MIDAZOLAM INJ 2MG/2ML VIAL (J2250 PER 1MG) As Ordered ONE; -ONDANSETRON 4MG/2ML VIAL As Ordered ONE; -ROCURONIUM BROMIDE 50 MG/5 ML VIAL As Ordered ONE; -THROMBIN SOLN 20,000 UNITS KIT As Ordered ONE; -ceFAZolin SOD 2 GM in IV 1 EA IV ONE; -dexameTHASONE 4 MG/ML 1ML VIAL (J1100 PER 1MG) As Ordered ONE; -fentaNYL 100 MCG/2 ML INJECTION (J3010) As Ordered ONE; -propofoL 200 MG/20 ML VIAL As Ordered ONE
== END ==
LOC: M LABSMTC 10:28
PROVIDERS: ATTEND Anesthesiology
DX: Z01.812 Encounter for preprocedural laboratory examination (principal); Z20.828 Contact with and (suspected) exposure to other viral communicable diseases

== ENCOUNTER 2020-05-31 06:04 | Day surgery (SDC) | payer OTHER ==
[~2020-05-31] VITALS: Ht 172.7 cm; Wt 101.8 kg
[~2020-05-31 06:04] MED LIST changes: +LIDOCAINE 1% MDV 20ML VIAL SQ PRN; +LR 1,000 ML IV ONE; +ceFAZolin SOD 2 GM in IV 1 EA IV ONE
[2020-05-31] MEDS ORDERED: LEVALBUTEROL 1.25 MG/0.5 ML CONCENTRATE NEB As Ordered ONE (07:08)
[2020-05-31] MEDS ORDERED: MIDAZOLAM INJ 2MG/2ML VIAL (J2250 PER 1MG) As Ordered ONE (07:12)
[2020-05-31] MEDS ORDERED: ONDANSETRON 4MG/2ML VIAL As Ordered ONE (07:13)
[2020-05-31] MEDS ORDERED: ROCURONIUM BROMIDE 50 MG/5 ML VIAL As Ordered ONE (07:13)
[2020-05-31] MEDS ORDERED: dexameTHASONE 4 MG/ML 1ML VIAL (J1100 PER 1MG) As Ordered ONE (07:13)
[2020-05-31] MEDS ORDERED: fentaNYL 100 MCG/2 ML INJECTION (J3010) As Ordered ONE ×2 (07:13→08:11)
[2020-05-31] MEDS ORDERED: LIDOCAINE 2% 100MG/5ML SDV (FOR ANES.) As Ordered ONE (07:13)
[2020-05-31] MEDS ORDERED: propofoL 200 MG/20 ML VIAL As Ordered ONE (07:13)
[2020-05-31] MEDS ORDERED: LEVALBUTEROL 1.25 MG/0.5 ML CONCENTRATE NEB INH ONE (07:30)
[2020-05-31] MEDS ORDERED: SUGAMMADEX SODIUM 500 MG/5 ML VIAL (BRIDION) As Ordered ONE (08:12)
[2020-05-31] MEDS ORDERED: PHENYLephrine HCL 500 MCG/5 ML (100MCG/ML) SYRINGE (J2370) As Ordered ONE (08:13)
--- NOTE | 2020-05-31 08:28 | ECGEPIP ---
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 Clincal correlation advised Electronically Signed on 05-31-2020 8:27:34 EST by Rex Sanchez
[2020-05-31] MEDS ORDERED: LABETALOL 100MG/20ML VIAL As Ordered ONE (08:53)
[2020-05-31] MEDS: LABETALOL 100MG/20ML VIAL IV SCH ×13 (08:54→10:00)
[2020-05-31] MEDS ORDERED: ENOXAPARIN 40MG/0.4ML SYRINGE (J1650 PER 10MG) SC SCH (09:00)
[2020-05-31] MEDS ORDERED: oxyCODONE 5MG TAB PO PRN (09:00)
[2020-05-31] MEDS ORDERED: KETOROLAC 30 MG/ML 1ML VIAL IV PRN (09:00)
[2020-05-31] MEDS ORDERED: ONDANSETRON 4MG/2ML VIAL IV PRN ×2 (09:00)
[2020-05-31] MEDS ORDERED: ASPIRIN 81 MG ENTERIC TAB PO SCH (09:00)
[2020-05-31] MEDS ORDERED: SENOKOT S TAB PO SCH (09:00)
[2020-05-31] MEDS ORDERED: LR 1,000 ML IV SCH (09:00)
[2020-05-31] MEDS ORDERED: fentaNYL 100 MCG/2 ML INJECTION (J3010) IV PRN (09:00)
[2020-05-31] MEDS ORDERED: HYDROMORPHONE HCL 0.5 MG/ 0.5 ML SYRINGE (J1170 PER 1) IV PRN (09:00)
[2020-05-31] MEDS ORDERED: PERCOCET 5MG/325MG TAB PO PRN ×4 (09:00→16:00)
[2020-05-31] MEDS ORDERED: atenoloL 25 MG TAB PO SCH (09:00)
[2020-05-31 10:15] VITALS: BP 136/65
--- NOTE | 2020-05-31 10:44 | RO ---
OPERATIVE NOTE DATE OF OPERATION: 05/31/2020 PREOPERATIVE DIAGNOSIS: Pilonidal cyst. POSTOPERATIVE DIAGNOSIS: Pilonidal cyst. PROCEDURE: Pilonidal cystectomy. SURGEON: Robin Smith DO. COSTUME MAKER: None. ANESTHESIA: General. ESTIMATED BLOOD LOSS: 5 mL. COMPLICATIONS: None. INDICATIONS FOR PROCEDURE: The patient is a 64-year-old male with a persistent pilonidal cyst. He came to see me in the office and requested resection. After examination, the recommendation was to proceed with pilonidal cystectomy. Risks and benefits of the procedure not limited to, but including bleeding, infection, damage to surrounding structures, cyst recurrence, and the need for further surgery were discussed in detail with the patient. Informed consent was obtained and the procedure was planned. DESCRIPTION OF PROCEDURE: The patient was brought back to operating room #2. After sufficient general sedation, he was placed in the prone position. The presacral area was sterilely prepped and draped with chlorhexidine. Next, a time-out was done to confirm the proper patient and proper procedure. Following that, an elliptical incision was made surrounding the cyst, as well as two sinus openings towards the midline. An incision was then created using a 15-blade scalpel. Cautery was then used to dissect circumferentially around the sinus tracts and the cyst. Once they were all completely dissected, it was removed as one specimen. Cautery was then used to control hemostasis. The wound was irrigated, covered with 4 x 4s and tape at this concluded the procedure. The patient tolerated the procedure well, he was awakened, and sent to PACU in stable condition.
[2020-05-31 10:45] VITALS: BP 134/64
[2020-05-31 11:21] VITALS: BP 134/64
[2020-05-31 11:45] VITALS: BP 152/72
[2020-05-31 12:45] VITALS: BP 135/78
[2020-05-31 13:45] VITALS: BP 159/87
[2020-05-31] MEDS ORDERED: ROSUVASTATIN 10 MG TAB (CRESTOR) PO SCH (21:00)
== END 2020-05-31 16:20 | disposition home or self-care (01) ==
LOC: M SDC 06:04 → M MS5PR 10:15 → M SDC 16:20
PROVIDERS: ATTEND Surgery
DX: L05.91 Pilonidal cyst without abscess (principal); F43.10 Post-traumatic stress disorder, unspecified; E11.40 Type 2 diabetes mellitus with diabetic neuropathy, unspecified; I10 Essential (primary) hypertension; E78.5 Hyperlipidemia, unspecified; F32.9 Major depressive disorder, single episode, unspecified; Z87.891 Personal history of nicotine dependence; Z79.899 Other long term (current) drug therapy; M81.0 Age-related osteoporosis without current pathological fracture; J44.9 Chronic obstructive pulmonary disease, unspecified; G47.30 Sleep apnea, unspecified
CPT/HCPCS: 11770; 88304; 93005; J1100; J1885; J2250; J2370; J2405; J3010

== ENCOUNTER → 2020-06-14 | Outpatient (CLI) | payer OTHER ==
[~2020-06-14] MED LIST changes: -LIDOCAINE 1% MDV 20ML VIAL SQ PRN; -LR 1,000 ML IV ONE; -ceFAZolin SOD 2 GM in IV 1 EA IV ONE
--- NOTE | 2020-06-15 23:08 | ECWPNPC ---
PATIENT NAME: LILIAN IRWIN : 1955 GENDER: MALE VISIT DATE: 06/14/2020 DISCHARGE DATE: 06/14/20 1501 VISIT LOCKED DATE TIME: PHYSICIAN: FRANCISCO CERVANTES RESOURCE: FRANCISCO CERVANTES REASON FOR APPOINTMENT 1. WANTS TO DISCUSS MEDS HISTORY OF PRESENT ILLNESS GENERAL: 64-YEAR-OLD MALE IN FOR CHRONIC PAIN FOLLOW-UP. PATIENT RATES HIS PAIN AT A 10 OUT OF 10 AND DESCRIBES IT ACHING, SHARP, STABBING, AND SHOOTING. HE DOES NOT FEEL HIS MEDICATIONS ARE COVERING HIS PAIN CURRENTLY. HE WOULD LIKE TO DISCUSS OTHER OPTIONS. -. FALL RISK SCREENING: SCREENING :NO FALLS REPORTED IN THE LAST YEAR PAIN SCREENING: PATIENT HAS A COMPLAINT OF ACUTE OR CHRONIC PAIN :YES LOCATION OF PAIN:LOW BACK, LEFT HIP, RIGHT HIP, LEG(S) INTENSITY OF PAIN (SCALE OF 1 TO 10):10 WHAT DOES YOUR PAIN FEEL LIKE:ACHING, SHARP, STABBING, SHOOTING DURATION:CONTINOUS, CONSTANT PAIN IS INCREASED BY:ACTIVITIES PAIN IS DECREASED BY:USE OF PAIN MEDICATIONS, SITTING NURSING NOTE: -. PAIN CENTER INTAKE QUESTIONS: DO YOU HAVE A HISTORY OF MRSA? :NO DO YOU TAKE A BLOOD THINNERS? :NO DO YOU HAVE ANY BLEEDING DISORDERS? :NO ANY NEW NUMBNESS OR WEAKNESS IN YOUR LEGS OR ARMS? :NO ANY PACEMAKER,DEFIBRILLATOR, OR DORSAL COLUMN STIMULATOR? :NO DO YOU HAVE ANY RASHES OR OPEN SORES? :NO ARE YOU ALLERGIC TO IV DYE? :NO ARE YOU DIABETIC? :NO ANY NEW PROBLEMS WITH YOUR MEDICATIONS? :NO HAVE YOU RECEIVED A VACCINE IN THE PAST 30 DAYS? :NO DO YOU PLAN TO RECEIVE A VACCINE IN THE NEXT 21 DAYS? :NO DO YOU NEED ANY PRESCRIPTION? :NO DO YOU TAKE ANY IMMUNOSUPPRESSIVE MEDICATIONS? :NO IS THERE A CHANCE YOU COULD BE ? :NO ARE YOU BREAST FEEDING? :NO CURRENT MEDICATIONS UNKNOWN FLAX SEEDS - POWDER DIRECTED ORALLY UNKNOWN ALOGLIPTIN BENZOATE 25 MG TABLET 1 TABLET ORALLY ONCE A DAY UNKNOWN ASPIR-LOW 81 MG TABLET DELAYED RELEASE 1 TABLET ORALLY ONCE A DAY UNKNOWN CHOLECALCIFEROL 25 MCG (1000 UT) CAPSULE 2 CAPSULES ORALLY ONCE A DAY UNKNOWN GLIPIZIDE 10 MG TABLET 2 TABLETS ORALLY 2 TIMES A DAY UNKNOWN GLUCOSE 4 GM TABLET CHEWABLE DIRECTED ORALLY UNKNOWN KETOTIFEN FUMARATE 0.025 % SOLUTION 1 DROP INTO BOTH EYES OPHTHALMIC TWICE A DAY UNKNOWN OLODATEROL HCL 2.5 MCG/ACT AEROSOL SOLUTION 2 PUFFS INHALATION ONCE A DAY UNKNOWN SELENIUM SULFIDE 2.5 % SHAMPOO 1 APPLICATION TO WET SCALP EXTERNALLY DAILY UNKNOWN TESTOSTERONE 1.62 % GEL 2 PUMPS TO SKIN IN THE MORNING TO SHOULDER, UPPER ARMS OR ABDOMEN TRANSDERMAL ONCE A DAY UNKNOWN BACLOFEN 10 MG TABLET 1 TABLET WITH FOOD OR MILK ORALLY THREE TIMES A DAY UNKNOWN PERCOCET 5-325 MG TABLET 1 TABLET NEEDED ORALLY EVERY 8 HRS PRN UNKNOWN TYLENOL WITH CODEINE #3 300-30 MG TABLET 1 TABLET NEEDED ORALLY TID UNKNOWN HYDROPHILIC - OINTMENT DIRECTED EXTERNALLY UNKNOWN PROPRANOLOL HCL 60 MG CAPSULE EXTENDED RELEASE 1 CAPSULE ORALLY DAILY UNKNOWN ROSUVASTATIN CALCIUM 10 MG TABLET 1 TABLET ORALLY ONCE A DAY UNKNOWN SERTRALINE HCL 50 MG TABLET 1 TABLET ORALLY ONCE A DAY UNKNOWN TRAZODONE HCL 100 MG TABLET 1 TABLET AT BEDTIME ORALLY ONCE A DAY PAST MEDICAL HISTORY CHRONIC PAIN DEPRESSION PTSD ERIKA ESSENTIAL HTN HYPERLIPIDEMIA 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 SIBLINGS HTNSISTER LIVER CIRRHOSIS. SOCIAL HISTORY GENERAL: TOBACCO USE ARE YOU A:FORMER SMOKER HOW LONG HAS IT BEEN SINCE YOU LAST SMOKED?1-5 YEARS LATEX QUESTIONNAIRE LATEX ALLERGY : HAVE YOU EVER DEVELOPED ANY TYPE OF REACTION AFTER HANDLING LATEX PRODUCTS SUCH RUBBER GLOVES, CONDOMS, DIAPHRAGMS, BALLOONS, SOCKS, OR UNDERWEAR?NO LATEX ALLERGY : HAVE YOU EVER DEVELOPED ANY TYPE OF REACTION DURING OR AFTER DENTAL APPOINTMENT, VAGINAL/RECTAL EXAMINATION, SURGICAL PROCEDURE, OR ANY OTHER EXPOSURE?NO LATEX RISK : HAVE YOU EVER HAD ANY DIFFICULTY BREATHING OR HIVES AFTER EATING OR HANDLING ANY FRUITS, OR VEGETABLES; SUCH KIWI, BANANAS, STONE FRUITS, OR CHESTNUTSNO LATEX RISK : DO YOU HAVE A PREVIOUS PERSONAL HISTORY OF MORE THAN NINE SURGERIES, SPINA BIFIDA, OR REPEATED CATHERIZATIONS? YES - PLEASE INDICATE : > 9 SURGERIES LATEX RISK : ARE YOU FREQUENTLY EXPOSED TO LATEX PRODUCTS IN YOUR OCCUPATION?YES DATE ASKED : 06/14/2020 ALCOHOL SCREENING DID YOU HAVE A DRINK CONTAINING ALCOHOL IN THE PAST YEAR?YES HOW OFTEN DID YOU HAVE SIX OR MORE DRINKS ON ONE OCCASION IN THE PAST YEAR?LESS THAN MONTHLY (1 POINT) HOW MANY DRINKS DID YOU HAVE ON A TYPICAL DAY WHEN YOU WERE DRINKING IN THE PAST YEAR?1 OR 2 (0 POINTS) HOW OFTEN DID YOU HAVE A DRINK CONTAINING ALCOHOL IN THE PAST YEAR?FOUR OR MORE TIMES A WEEK (4 POINTS) POINTS5 INTERPRETATIONPOSITIVE RECREATIONAL DRUG USE DRUG USE?NO CAFFEINE CAFFEINE USE?YES HOW OFTEN AND HOW MUCH? 2/DAY LANGUAGE LANGUAGES SPOKEN:JORDANIAN LEARNING BARRIERS / SPECIAL NEEDS BARRIERS TO LEARNING?YES DIFFICULTY WITH SPELLING READING AND WRITING COMPREHENSION HEARING IMPAIRED?NO VISION IMPAIRED?YES COGNITIVELY IMPAIRED?YES SEE ABOVE :CORRECTIVE LENSES READINESS TO LEARN?YES LEARNING PREFERENCES?YES :DEMONSTRATION/VERBAL INSTRUCTION, OTHER (PLEASE COMMENT) HANDS ON LEARNING CAPABILITIES PRESENT?YES EMOTIONAL BARRIERS?YES PTSD DEPRESSION SPECIAL DEVICES?YES :CANE, WHEELCHAIR ONCE IN A WHILE WILL USE CANE ASPHALT RAKER NEEDED?NO DOMESTIC VIOLENCE DO YOU FEEL SAFE IN YOUR ENVIRONMENT?YES 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 DIET: HIGH PROTIEN DIET. MARITAL STATUS: .. OTHERS AT HOME: NONE. PAIN CLINIC PFS, CLERGY, PUBLIC HEALTH REFERRALS HAS THE PATIENT BEEN EDUCATED REGARDING HIS/HER PLAN OF CARE?YES HAS THE PATIENT BEEN EDUCATED REGARDING PAIN, THE RISK FOR PAIN, THE IMPORTANCE OF EFFECTIVE PAIN MANAGEMENT, AND THE PAIN ASSESSMENT PROCESS?YES ADVANCE DIRECTIVE ADVANCE DIRECTIVE DISCUSSED WITH PATIENT:YES HCP BROTHER NAIDA IRWIN [phone] HOSPITALIZATION/MAJOR DIAGNOSTIC PROCEDURE SURGERY RELATED REVIEW OF SYSTEMS CONSTITUTIONAL: ANY RECENT FEVER NO . CHILLS NO . WEIGHT CHANGE OF UNKNOWN REASONS NO . GASTROENTEROLOGY: NEW UNEXPLAINABLE CHANGES IN BOWEL CONTROL NO . CONSTIPATION NO . GENITOURINARY: ANY NEW CHANGE IN BLADDER CONTROL? NO . NEUROLOGY: NEW ONSET DIZZINESS OR NEUROLOGICAL CHANGES NOT MENTIONED NO . NEW NUMBNESS OR PAIN PATTERNS NOT MENTIONED AND PERTINENT TO TODAY'S VISIT NO . CARDIOLOGY: NEW CHEST PRESSURE NO . NEW CHEST PAIN NO . RESPIRATORY: UNEXPLAINABLE COUGH NO . NEW SHORTNESS OF BREATH NO . VITAL SIGNS WT 242.8 LBS, HT 60 IN, BMI 47.41 INDEX, BP 160/73 MM HG, HR 87 /MIN, RR 18 /MIN, TEMP 98.7 F, OXYGEN SAT % 95%, SAFE IN ENV? (Y/N) YES, NA INITIALS AW 1427, REVIEWED BY: AGUSTÍN ANDERSON. EXAMINATION GENERAL EXAMINATION: GENERALNO ACUTE DISTRESS, WELL NOURISHED AND HYDRATED. PSYCHAPPROPRIATE MOOD AND AFFECT . LUNGS:CLEAR TO AUSCULTATION BILATERALLY, NO WHEEZES, RHONCHI, RALES. HEART:NO MURMURS, REGULAR RATE AND RHYTHM. ASSESSMENTS LOW BACK PAIN - M54.5 (PRIMARY) TREATMENT LOW BACK PAIN START LYRICA CAPSULE, 75 MG, 1 CAPSULE, ORALLY, TWICE DAILY, 30 DAYS, 60 NOTES: 64-YEAR-OLD MALE IN FOR CHRONIC PAIN FOLLOW-UP. GIVEN PRESENTING SYMPTOMS RECOMMEND STARTING LYRICA 75 MG TWICE A DAY WITH FOLLOW-UP IN 2 MONTHS TO DETERMINE EFFICACY OF TREATMENT. PATIENT HAS EXPRESSED UNDERSTANDING OF AND WAS IN AGREEMENT WITH TREATMENT PLAN. GIVEN TIME TO ASK QUESTIONS AND EXPRESS CONCERNS. , ISTOP REGISTRY REVIEWED AND DEMONSTRATES COMPLLIANCE. (REF # ) BRINGS IN MEDICATIONS WHICH IS APPROPRIATE FOR WHAT WAS DISPENSED. RECENT URINE TOXICOLOGY REVIEWED. NO UNAUTHORIZED MEDICATIONS. NO ILLICIT SUBSTANCES AND PRESCRIBED MEDICATIONS WERE PRESENT. PROCEDURE CODES FA211 ESTABILISHED PATIENT [facility] CHARGE DISPOSITION & COMMUNICATION FOLLOW UP 2 MONTHS (REASON: CHRONIC LOW BACK PAIN ) ELECTRONICALLY SIGNED BY RELL GARDNER ON 06/15/2020 AT 10:29 AM EST DISCLAIMER : THIS IS A VISIT SUMMARY EXTRACTED FROM THE [employer] CHART. IT IS NOT A COPY OF THE [employer] PROGRESS NOTE. EMANI
== END ==
LOC: M PAIN 14:30
PROVIDERS: ATTEND Family Medicine
DX: M54.5 Low back pain (principal); G89.29 Other chronic pain; G47.33 Obstructive sleep apnea (adult) (pediatric); E11.9 Type 2 diabetes mellitus without complications; J44.9 Chronic obstructive pulmonary disease, unspecified; G47.00 Insomnia, unspecified; Z86.59 Personal history of other mental and behavioral disorders; Z87.891 Personal history of nicotine dependence; Z88.5 Allergy status to narcotic agent; Z88.8 Allergy status to other drugs, medicaments and biological substances; E66.01 Morbid (severe) obesity due to excess calories; Z68.42 Body mass index [BMI] 45.0-49.9, adult; Z79.82 Long term (current) use of aspirin; Z79.84 Long term (current) use of oral hypoglycemic drugs; Z79.899 Other long term (current) drug therapy

== ENCOUNTER → 2020-07-05 | Outpatient (CLI) | payer OTHER ==
[~2020-07-05] MED LIST changes: +GABA-282 PO; -GABA-843 PO
--- NOTE | 2020-07-07 04:14 | ECWPNPC ---
PATIENT NAME: LILIAN IRWIN : 1955 GENDER: MALE VISIT DATE: 07/05/2020 DISCHARGE DATE: 07/05/20 1151 VISIT LOCKED DATE TIME: PHYSICIAN: FRANCISCO CERVANTES RESOURCE: FRANCISCO CERVANTES REASON FOR APPOINTMENT 1. BACK PAIN HISTORY OF PRESENT ILLNESS GENERAL: 65-YEAR-OLD MALE IN FOR CHRONIC PAIN FOLLOW-UP. HE RATES HIS PAIN CURRENTLY AT A 9 OUT OF 10 AND DESCRIBES IT BURNING, AND SHOOTING. AT LAST CLINIC VISIT PATIENT WAS STARTED ON LYRICA AND ADMITS TODAY THAT THIS HAS BEEN BENEFICIAL. -. FALL RISK SCREENING: SCREENING :NO FALLS REPORTED IN THE LAST YEAR PAIN SCREENING: PATIENT HAS A COMPLAINT OF ACUTE OR CHRONIC PAIN :YES LOCATION OF PAIN:LOW BACK, LEFT HIP, RIGHT HIP INTENSITY OF PAIN (SCALE OF 1 TO 10):9 WHAT DOES YOUR PAIN FEEL LIKE:BURNING, SHOOTING DURATION:CONTINOUS, CONSTANT, ALL DAY PAIN IS INCREASED BY:ACTIVITIES PAIN IS DECREASED BY:USE OF PAIN MEDICATIONS NURSING NOTE: -. PAIN CENTER INTAKE QUESTIONS: DO YOU HAVE A HISTORY OF MRSA? :NO DO YOU TAKE A BLOOD THINNERS? :NO DO YOU HAVE ANY BLEEDING DISORDERS? :NO ANY NEW NUMBNESS OR WEAKNESS IN YOUR LEGS OR ARMS? :NO ANY PACEMAKER,DEFIBRILLATOR, OR DORSAL COLUMN STIMULATOR? :NO DO YOU HAVE ANY RASHES OR OPEN SORES? :NO ARE YOU ALLERGIC TO IV DYE? :NO ARE YOU DIABETIC? :NO ANY NEW PROBLEMS WITH YOUR MEDICATIONS? :NO HAVE YOU RECEIVED A VACCINE IN THE PAST 30 DAYS? :NO DO YOU PLAN TO RECEIVE A VACCINE IN THE NEXT 21 DAYS? :NO DO YOU NEED ANY PRESCRIPTION? :NO DO YOU TAKE ANY IMMUNOSUPPRESSIVE MEDICATIONS? :NO IS THERE A CHANCE YOU COULD BE ? :NO ARE YOU BREAST FEEDING? :NO CURRENT MEDICATIONS TAKING LYRICA 75 MG CAPSULE 1 CAPSULE ORALLY TWICE DAILY TAKING AMLODIPINE BESYLATE 10 MG TABLET 5 ML ORALLY ONCE A DAY TAKING ATENOLOL 25 MG TABLET 1 TABLET ORALLY ONCE A DAY TAKING ASPIRIN 81 81 MG TABLET DELAYED RELEASE 1 TABLET ORALLY ONCE A DAY TAKING OXYCODONE-ACETAMINOPHEN 5-325 MG TABLET 1 TABLET NEEDED ORALLY EVERY 6 HRS TAKING ALOGLIPTIN BENZOATE 25 MG TABLET 1 TABLET ORALLY ONCE A DAY TAKING CHOLECALCIFEROL 25 MCG (1000 UT) CAPSULE 2 CAPSULES ORALLY ONCE A DAY TAKING GLIPIZIDE 10 MG TABLET 2 TABLETS ORALLY 2 TIMES A DAY TAKING BACLOFEN 10 MG TABLET 1 TABLET WITH FOOD OR MILK ORALLY THREE TIMES A DAY NOT-TAKING FLAX SEEDS - POWDER DIRECTED ORALLY NOT-TAKING ASPIR-LOW 81 MG TABLET DELAYED RELEASE 1 TABLET ORALLY ONCE A DAY NOT-TAKING GLUCOSE 4 GM TABLET CHEWABLE DIRECTED ORALLY NOT-TAKING KETOTIFEN FUMARATE 0.025 % SOLUTION 1 DROP INTO BOTH EYES OPHTHALMIC TWICE A DAY NOT-TAKING OLODATEROL HCL 2.5 MCG/ACT AEROSOL SOLUTION 2 PUFFS INHALATION ONCE A DAY NOT-TAKING SELENIUM SULFIDE 2.5 % SHAMPOO 1 APPLICATION TO WET SCALP EXTERNALLY DAILY NOT-TAKING TESTOSTERONE 1.62 % GEL 2 PUMPS TO SKIN IN THE MORNING TO SHOULDER, UPPER ARMS OR ABDOMEN TRANSDERMAL ONCE A DAY NOT-TAKING PERCOCET 5-325 MG TABLET 1 TABLET NEEDED ORALLY EVERY 8 HRS PRN NOT-TAKING TYLENOL WITH CODEINE #3 300-30 MG TABLET 1 TABLET NEEDED ORALLY TID NOT-TAKING HYDROPHILIC - OINTMENT DIRECTED EXTERNALLY NOT-TAKING PROPRANOLOL HCL 60 MG CAPSULE EXTENDED RELEASE 1 CAPSULE ORALLY DAILY NOT-TAKING ROSUVASTATIN CALCIUM 10 MG TABLET 1 TABLET ORALLY ONCE A DAY NOT-TAKING SERTRALINE HCL 50 MG TABLET 1 TABLET ORALLY ONCE A DAY NOT-TAKING TRAZODONE HCL 100 MG TABLET 1 TABLET AT BEDTIME ORALLY ONCE A DAY MEDICATION LIST REVIEWED AND RECONCILED WITH THE PATIENT ALLERGIES NO[ALLERGIES VERIFIED] SOCIAL HISTORY GENERAL: TOBACCO USE ARE YOU A:FORMER SMOKER HOW LONG HAS IT BEEN SINCE YOU LAST SMOKED?1-5 YEARS LATEX QUESTIONNAIRE LATEX ALLERGY : HAVE YOU EVER DEVELOPED ANY TYPE OF REACTION AFTER HANDLING LATEX PRODUCTS SUCH RUBBER GLOVES, CONDOMS, DIAPHRAGMS, BALLOONS, SOCKS, OR UNDERWEAR?NO LATEX ALLERGY : HAVE YOU EVER DEVELOPED ANY TYPE OF REACTION DURING OR AFTER DENTAL APPOINTMENT, VAGINAL/RECTAL EXAMINATION, SURGICAL PROCEDURE, OR ANY OTHER EXPOSURE?NO LATEX RISK : HAVE YOU EVER HAD ANY DIFFICULTY BREATHING OR HIVES AFTER EATING OR HANDLING ANY FRUITS, OR VEGETABLES; SUCH KIWI, BANANAS, STONE FRUITS, OR CHESTNUTSNO LATEX RISK : DO YOU HAVE A PREVIOUS PERSONAL HISTORY OF MORE THAN NINE SURGERIES, SPINA BIFIDA, OR REPEATED CATHERIZATIONS? YES - PLEASE INDICATE : > 9 SURGERIES LATEX RISK : ARE YOU FREQUENTLY EXPOSED TO LATEX PRODUCTS IN YOUR OCCUPATION?YES DATE ASKED : 07/05/2020 ALCOHOL USE: NO. ALCOHOL SCREENING DID YOU HAVE A DRINK CONTAINING ALCOHOL IN THE PAST YEAR?YES HOW OFTEN DID YOU HAVE SIX OR MORE DRINKS ON ONE OCCASION IN THE PAST YEAR?LESS THAN MONTHLY (1 POINT) HOW MANY DRINKS DID YOU HAVE ON A TYPICAL DAY WHEN YOU WERE DRINKING IN THE PAST YEAR?1 OR 2 (0 POINTS) HOW OFTEN DID YOU HAVE A DRINK CONTAINING ALCOHOL IN THE PAST YEAR?FOUR OR MORE TIMES A WEEK (4 POINTS) POINTS5 INTERPRETATIONPOSITIVE RECREATIONAL DRUG USE DRUG USE?NO CAFFEINE CAFFEINE USE?YES HOW OFTEN AND HOW MUCH? 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 DIET: HIGH PROTIEN DIET. MARITAL STATUS: .. OTHERS AT HOME: NONE. - HAS THE PATIENT BEEN EDUCATED REGARDING HIS/HER PLAN OF CARE?YES HAS THE PATIENT BEEN EDUCATED REGARDING PAIN, THE RISK FOR PAIN, THE IMPORTANCE OF EFFECTIVE PAIN MANAGEMENT, AND THE PAIN ASSESSMENT PROCESS?YES ADVANCE DIRECTIVE ADVANCE DIRECTIVE DISCUSSED WITH PATIENT:YES HCP BROTHER NAIDA IRWIN [phone] REVIEW OF SYSTEMS CONSTITUTIONAL: ANY RECENT FEVER NO . CHILLS NO . WEIGHT CHANGE OF UNKNOWN REASONS NO . GASTROENTEROLOGY: NEW UNEXPLAINABLE CHANGES IN BOWEL CONTROL NO . CONSTIPATION NO . GENITOURINARY: ANY NEW CHANGE IN BLADDER CONTROL? NO . NEUROLOGY: NEW ONSET DIZZINESS OR NEUROLOGICAL CHANGES NOT MENTIONED NO . NEW NUMBNESS OR PAIN PATTERNS NOT MENTIONED AND PERTINENT TO TODAY'S VISIT NO . CARDIOLOGY: NEW CHEST PRESSURE NO . NEW CHEST PAIN NO . RESPIRATORY: UNEXPLAINABLE COUGH NO . NEW SHORTNESS OF BREATH NO . EXAMINATION GENERAL EXAMINATION: GENERALNO ACUTE DISTRESS, WELL NOURISHED AND HYDRATED. PSYCHAPPROPRIATE MOOD AND AFFECT . LUNGS:CLEAR TO AUSCULTATION BILATERALLY, NO WHEEZES, RHONCHI, RALES. HEART:NO MURMURS, REGULAR RATE AND RHYTHM. ASSESSMENTS LOW BACK PAIN - M54.5 (PRIMARY) TREATMENT LOW BACK PAIN START LYRICA CAPSULE, 75 MG, 1 CAPSULE, ORALLY, TWICE DAILY, 30 DAYS, 60 NOTES: 65-YEAR-OLD MALE IN FOR CHRONIC PAIN FOLLOW-UP. GIVEN PRESENTING SYMPTOMS RECOMMEND CONTINUATION CURRENT MEDICATION REGIMEN WITH FOLLOW-UP IN 2 MONTHS. PATIENT HAS EXPRESSED UNDERSTANDING OF AND WAS IN AGREEMENT WITH TREATMENT PLAN. GIVEN TIME TO ASK QUESTIONS AND EXPRESS CONCERNS. , ISTOP REGISTRY REVIEWED AND DEMONSTRATES COMPLLIANCE. (REF # [id number] ) BRINGS IN MEDICATIONS WHICH IS APPROPRIATE FOR WHAT WAS DISPENSED. RECENT URINE TOXICOLOGY REVIEWED. NO UNAUTHORIZED MEDICATIONS. NO ILLICIT SUBSTANCES AND PRESCRIBED MEDICATIONS WERE PRESENT. PROCEDURE CODES FA211 ESTABILISHED PATIENT [facility] CHARGE DISPOSITION & COMMUNICATION FOLLOW UP 2 MONTHS (REASON: BACK PAIN) ELECTRONICALLY SIGNED BY RELL GARDNER ON 07/06/2020 AT 01:15 PM EST DISCLAIMER : THIS IS A VISIT SUMMARY EXTRACTED FROM THE [employer] CHART. IT IS NOT A COPY OF THE [employer] PROGRESS NOTE. EMANI
== END ==
LOC: M PAIN 11:30
PROVIDERS: ATTEND Family Medicine
DX: M54.5 Low back pain (principal); G89.29 Other chronic pain; Z87.891 Personal history of nicotine dependence; Z79.82 Long term (current) use of aspirin; Z79.899 Other long term (current) drug therapy

== ENCOUNTER → 2020-07-26 | Outpatient (CLI) | payer OTHER ==
--- NOTE | 2020-07-26 18:34 | REPVR ---
PROCEDURE INFORMATION: Exam: MR Lumbar Spine Without Contrast. Exam date and time: 07/26/2020 6:24 PM Age: 65 years old Clinical indication: Low back pain; Patient HX: Radiculopathy cervical pain thoracic lbp TECHNIQUE: Imaging protocol: Multiplanar magnetic resonance images of the lumbar spine without intravenous contrast. COMPARISON: No relevant prior studies available. FINDINGS: Vertebrae: No acute compression fracture is seen. Modic 1 marrow changes are present along the L5-S1 endplates. There are Modic 2 marrow changes along the L4-L5 endplates. Minimal retrolisthesis of L4 on L5 and L5 on S1 is present. Spinal cord: The conus medullaris terminates at the L1-L2 level. There is no evidence of arachnoiditis or cauda equina compression. L1-L2: No significant disc disease. No significant spinal stenosis or neural foraminal narrowing. L2-L3: No significant disc disease. No significant spinal stenosis or neural foraminal narrowing. L3-L4: There is mild diffuse circumferential disc bulging and facet arthropathy. There is no spinal canal stenosis or significant neural foraminal narrowing. L4-L5: There is disc dehydration, mild disc space narrowing, moderate diffuse circumferential disc bulging, right foraminal and extraforaminal osteophytic ridging, and mild facet arthropathy. This is causing mild spinal canal stenosis, moderate narrowing of the right subarticular recess, moderate right neural foraminal narrowing, and minimal left neural foraminal narrowing. L5-S1: There is disc dehydration, moderate disc space narrowing, marked diffuse circumferential disc bulging, circumferential osteophytic ridging, and mild facet arthropathy. There is no spinal canal stenosis. There is moderate narrowing of the left subarticular recess, moderate/severe left neural foraminal narrowing, and moderate right neural foraminal narrowing. Soft tissues: Subcutaneous edema is present in the lower back. IMPRESSION: Degenerative changes of the lumbar spine as discussed above Electronically signed by: Juan Manuel Santizo On 07/26/2020 18:34:26 PM
--- NOTE | 2020-07-26 18:42 | REPVR ---
PROCEDURE INFORMATION: Exam: MR Thoracic Spine Without Contrast Exam date and time: 07/26/2020 6:24 PM Age: 65 years old Clinical indication: Pain in thoracic spine; Without myelpathy or radiculopathy; Patient HX: Radiculopathy cervical pain thoracic lbp TECHNIQUE: Imaging protocol: Multiplanar magnetic resonance images of the thoracic spine without contrast. COMPARISON: No relevant prior studies available. FINDINGS: Vertebrae: Degenerative bone marrow edema is present within the T9 vertebral body. No acute compression fracture is identified. There is mild chronic vertebral body height loss involving the T7, T8, and T9 vertebra. Moderate kyphosis centered around these levels are noted. Epidural space: There is prominent posterior epidural fat from approximately T4 to T11, most pronounced at the T5 through T9 levels. This is causing anterior displacement and mild/moderate compression of the thecal sac at T6 through T9. Spinal cord: Normal signal. No cord compression. Discs/Spinal canal/Neural foramina: Mild degenerative changes of the thoracic spine are present. There is no significant disc protrusion. Soft tissues: There is mild edema along the anterior and right lateral aspect of the T8 and T9 vertebral bodies. IMPRESSION: Prominent posterior epidural fat at T6 through T9. This is causing anterior displacement and mild/moderate compression of the thecal sac. Electronically signed by: Juan Manuel Santizo On 07/26/2020 18:42:49 PM
--- NOTE | 2020-07-26 18:54 | REPVR ---
PROCEDURE INFORMATION: Exam: MR Cervical Spine Without Contrast Exam date and time: 07/26/2020 6:24 PM Age: 65 years old Clinical indication: Neck pain; Patient HX: Radiculopathy cervical pain thoracic lbp TECHNIQUE: Imaging protocol: Multiplanar magnetic resonance images of the cervical spine without contrast. COMPARISON: No relevant prior studies available. FINDINGS: Vertebrae: There is straightening of the normal cervical lordosis. No acute fracture of the cervical spine is identified. There is minor anterolisthesis of C2 on C3 and C3 on C4. Of note, there is significant bone marrow edema involving the left T1 pedicle and facet. A small low T2 signal line is noted between the superior and inferior facet, possibly representing a fracture. Further evaluation with a CT through this area is recommended. Spinal cord: The cervical cord is of normal signal intensity and size. C2-C3: Moderate facet arthropathy is present. There is no spinal canal or neural foraminal stenosis. C3-C4: There is severe left neural foraminal narrowing due to uncinate spurring and facet arthropathy. There is no significant spinal canal or right foraminal stenosis. C4-C5: There is moderate uncinate spurring and facet arthropathy. This is causing moderate bilateral neural foraminal narrowing. There is no spinal canal stenosis. C5-C6: There is marked uncinate spurring and mild facet arthropathy. This is causing severe left and moderate right neural foraminal narrowing. There is no spinal canal stenosis. C6-C7: There is marked right and mild left uncinate spurring. Mild facet arthropathy and minimal shallow central disc bulging is also present. There is no spinal canal stenosis or significant left foraminal narrowing. Moderate/severe right neural foraminal stenosis is present. C7-T1: There is probable severe left facet arthropathy. Acute traumatic injury in this area is difficult to exclude given the amount of bone marrow edema. Clinical correlation is recommended. There is no significant spinal canal or neural foraminal stenosis. Soft tissues: The prevertebral soft tissues are within normal limits. Vertebral arteries: Expected flow voids in the vertebral arteries. IMPRESSION: Significant bone marrow edema involving the left T1 pedicle and facet. A small low T2 signal line is noted between the superior and inferior facet, possibly representing a fracture. Further evaluation with a CT through this area is recommended. Electronically signed by: Juan Manuel Santizo On 07/26/2020 18:54:53 PM
== END ==
LOC: M RAD 16:36
PROVIDERS: ATTEND Internal Medicine
DX: M54.12 Radiculopathy, cervical region (principal)

== ENCOUNTER → 2020-08-04 | Outpatient (CLI) | payer OTHER ==
[~2020-08-04] MED LIST changes: +ALLE1DRO2 OU; +AMLO1TAB24 PO; +BACL1TAB8 PO; -CAPS42.54 EX; +CAPS42.54 TOP; +DOCU100C16 PO; +FURO20TA2 PO; +LYRI75CA PO; +OMEP-218 PO; +OXYC-517 PO; +OXYC1TAB23 PO; -REFR0.5D8 OP; +REFR0.5D8 OU; +STRI1AER2 INH; +TROS20TA3 PO; +VITMTA PO
--- NOTE | 2020-08-04 10:32 | REP ---
INDICATION: SOB. COMPARISON: No comparison chest x-ray TECHNIQUE: Two views.. FINDINGS: The lungs are well inflated and free of infiltrate. The pleural angles are sharp. The heart size is normal. Pulmonary vasculature is not increased. No significant bony abnormality is seen. There is minimal anterior wedging of 1 of the midthoracic vertebrae. This appears to be old. The thoracic aorta is tortuous. IMPRESSION: No active cardiopulmonary disease.. <Electronically signed by Abelino Graf > 08/04/20 [id number]
== END ==
LOC: M WUC 08:06
PROVIDERS: ATTEND Physician Assistant
DX: R06.02 Shortness of breath (principal)

== ENCOUNTER → 2020-08-13 | Outpatient (CLI) | payer OTHER ==
[~2020-08-13] MED LIST changes: +ALLE1DRO2 OP; -ALLE1DRO2 OU; -AMLO1TAB24 PO; +CAPS42.54 EX; -CAPS42.54 TOP; -OMEP-218 PO; -OXYC1TAB23 PO; +REFR0.5D8 OP; -REFR0.5D8 OU; +STRI1AER2 IN; -STRI1AER2 INH; -TROS20TA3 PO
--- NOTE | 2020-08-13 13:56 | REPVR ---
PROCEDURE INFORMATION: Exam: CT Thoracic Spine Without Contrast Exam date and time: 08/13/2020 1:29 PM Age: 65 years old Clinical indication: Pain in thoracic spine; Additional info: Adn findings on diagnostic imagine mri TECHNIQUE: Imaging protocol: Computed tomography images of the thoracic spine without contrast. Radiation optimization: All CT scans at this facility use at least one of these dose optimization techniques: automated exposure control; mA and/or kV adjustment per patient size (includes targeted exams where dose is matched to clinical indication); or iterative reconstruction. COMPARISON: 1. MRI-Spine,Thoracic without con 07/26/2020 5:12 PM 2. MRI-Spine,Cervical without con 07/26/2020 5:12:33 PM FINDINGS: Vertebrae: There is again mild chronic height loss involving the T7, T8 and T9 vertebral bodies. Vertebral body heights are otherwise intact. There is again a kyphotic angulation of the mid to lower thoracic spine. Alignment is otherwise maintained. No acute fracture is identified. At the level of previously noted abnormality in the left T1 pedicle, there is a small ovoid lucency. There is considerable arthrosis of the adjacent left C7-T1 facet, and this likely represents an associated degenerative cyst. Discs/Spinal canal/Neural foramina: There is multilevel facet arthrosis, disc space narrowing and marginal osteophyte formation. The discs, neural foramina and spinal canal are better characterized on the previous MRI. Other bones/joints: The bones appear osteopenic. Soft tissues: There is no significant paraspinal hematoma. Vasculature: Atherosclerotic vascular calcifications are noted. Lungs: The visualized lung fernandez are clear. IMPRESSION: 1. Small ovoid lucency at the level of abnormality noted on MRI of 07/26/20, with considerable adjacent arthrosis of the left C7-T1 facet, likely an associated degenerative cyst. No acute fracture identified. May follow-up in 3-6 months, or earlier if there are suspected to be increasing associated symptoms here. 2. Spondylosis with disc displacements better characterized on the previous MRI. 3. Apparent osteopenia, again with mild chronic height loss of the T7, T8 and T9 vertebral bodies. Electronically signed by: Philip Contreras On 08/13/2020 13:56:53 PM
== END ==
LOC: M RAD 13:15
PROVIDERS: ATTEND Internal Medicine
DX: M50.20 Other cervical disc displacement, unspecified cervical region (principal); M85.88 Other specified disorders of bone density and structure, other site; R93.89 Abnormal findings on diagnostic imaging of other specified body structures; Q28.2 Arteriovenous malformation of cerebral vessels; K22.70 Barrett's esophagus without dysplasia; L03.90 Cellulitis, unspecified; J44.9 Chronic obstructive pulmonary disease, unspecified; R69 Illness, unspecified; L73.2 Hidradenitis suppurativa; G47.00 Insomnia, unspecified; M54.5 Low back pain; E78.2 Mixed hyperlipidemia; F17.219 Nicotine dependence, cigarettes, with unspecified nicotine-induced disorders; E66.9 Obesity, unspecified; G47.33 Obstructive sleep apnea (adult) (pediatric); M85.89 Other specified disorders of bone density and structure, multiple sites; M71.342 Other bursal cyst, left hand; M47.892 Other spondylosis, cervical region; F43.12 Post-traumatic stress disorder, chronic; R91.1 Solitary pulmonary nodule; E11.9 Type 2 diabetes mellitus without complications; S31.819S Unspecified open wound of right buttock, sequela; Z86.010 Personal history of colon polyps

== ENCOUNTER 2020-08-18 07:30 | Inpatient (IN) | payer OTHER ==
--- NOTE | 2020-08-10 15:50 | HPEPDOC ---
[facility] Medical History & Physical Date of Admission Aug 23, 2020 Date of Service: Aug 23, 2020 History and Physical Vascular surgery. Dr. Fuller HISTORY OF PRESENT ILLNESS: This is a 64-year-old patient with severe bilateral lower extremity recurrent peripheral vascular disease status post failed bi lateral femoral to below-knee popliteal bypasses with saphenous vein by another provider. The patient is status post left redo femoral to below-knee bypass first a few months ago. He has now had good left lower extremity perfusion and resolution of his left lower extremity claudication. His arterial duplex postop shows that the bypass is widely patent, still monophasic tibial flow but definitely improved. The right lower extremity reveals chronic SFA occlusion, known, and still patent flow through the popliteal and tibials. Plan is to proceed with Right re do femoral to below-knee popliteal bypass, with cadaver vein as per Dr Fuller 08/23/20. 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 FAMILY HISTORY: DM,HTN. ALLERGIES: Please see below. REVIEW OF SYSTEMS: As noted in HPI otherwise 10 point review systems unremarkable. HOME MEDICATIONS: Please see below. PHYSICAL EXAMINATION: Exam: Const: Appears medically stable. No signs of apparent distress present. Head/Face: Normal on inspection. ENMT: Tympanic membranes: intact. External nose WNL. Neck: Supple, no carotid bruits present Resp: No wheezing. Clear to auscultation bilaterally. CV: Rate is regular. Rhythm is regular. Abdomen: Bowel sounds are positive. Abdomen is soft, nontender, and nondistended. Lymph: No palpable or visible regional lymphadenopathy. Musculo:Gait steady, distal pulses not palpable. Strong biphasic signal over the left femoropopliteal bypass, monophasic PT and AT signals left lower extremity. Right lower extremity popliteal artery and tibial arteries are monophasic flow. Left foot is warm and well-perfused with less than 1 second capillary refill, right foot is a bit cooler with 3 second capillary refill. Left groin and calf incisions from bypass surgery are well healed. Skin:No rashes or lesions Neuro:Alert and oriented x3, moves all extremities equally, no focal neurologic deficits noted. Psych: Pleasant and cooperative ASSESSMENT/PLAN: 64-year-old male with severe PAD, status post left redo femoropopliteal bypass with cadaver vein several months ago, now well healed, ready now for his right redo femoral-popliteal bypass with cadaver vein as per Dr. Fuller 08/23/20. Informed consent placed with the chart. Transfusion consent placed with the chart. Hold Plavix 5 days prior to surgery, do not hold aspirin. Cardiology clearance requested and to be placed with the chart. PCP clearance requested and to be placed with the chart. NPO IVF as per Anesthesia Admission labs CBC, BMP, INR, PTT, type and screen. Ancef 2 gm admission IV pre op. Vital Signs Admission vital signs pending. Laboratory Data Labs 24H Admission labs pending. Home Medications Scheduled Alogliptin Benzoate (Nesina) 25 Mg Tablet, 25 MG PO DAILY Amlodipine Besylate (Amlodipine Besylate) 2.5 Mg Tablet, 5 MG PO DAILY Aspirin (Ecotrin) 81 Mg Tablet.dr, 81 MG PO DAILY Atenolol (Atenolol) 25 Mg Tablet, 25 MG PO BID Carboxymethylcellulose Sodium (Refresh Tears) 15 Ml Drops, 1 DROP OP QID Cholecalciferol (Vitamin D3) (Vitamin D3) 25 Mcg Capsule, 25 MCG PO DAILY Glipizide (Glipizide) 10 Mg Tablet, 20 MG PO BID Rosuvastatin Calcium (Rosuvastatin Calcium) 20 Mg Tablet, 20 MG PO QPM Scheduled PRN Oxycodone HCl/Acetaminophen (Percocet 5-325 mg Tablet) 1 Each Tablet, 2 TAB PO Q6H PRN for PAIN Miscellaneous Medications Capsaicin (Capsaicin) 42.5 Gm Cream..g., 0.1 % EX Allergies Coded Allergies: No Known Allergies (Unverified , 05/17/20) A-FIB/CHADSVASC A-FIB History Current/History of A-Fib/PAF?: No Jeniffer Hess Aug 10, 2020 15:47
[~2020-08-18] VITALS: Ht 172.7 cm; Wt 106.6 kg
[~2020-08-18 07:30] MED LIST changes: -AMLO1TAB24 PO; -OMEP-218 PO; -OXYC1TAB23 PO; -TROS20TA3 PO
[2020-08-23] VITALS (7 sets, daily range): BP systolic 130–168; BP diastolic 62–84
[2020-08-23] MEDS ORDERED: ceFAZolin SOD 2 GM in IV 1 EA IV ONE (07:00)
[2020-08-23 09:07] LABS: HEMATOCRIT 43.5 % (42.0-52.0); HEMOGLOBIN 14.3 g/dl (13.5-17.5); MEAN CORPUSCULAR HGB CONC 32.9 g/dl (32.0-36.5); MEAN CORPUSCULAR VOLUME 94.2 fl (80.0-96.0); PLATELET COUNT, AUTOMATED 146 10^3/uL (150-450); RED BLOOD COUNT 4.62 10^6/uL (4.30-6.10); WHITE BLOOD COUNT 7.6 10^3/uL (4.0-10.0)
[2020-08-23 09:20] LABS: INR 0.86; PROTHROMBIN TIME 11.9 SECONDS (12.5-14.3)
[2020-08-23 09:21] LABS: PARTIAL THROMBOPLASTIN TIME 26.9 SECONDS (24.2-38.5)
[2020-08-23 09:26] LABS: BLOOD UREA NITROGEN 15 MG/DL (7-18); CALCIUM LEVEL 8.9 MG/DL (8.8-10.2); CARBON DIOXIDE LEVEL 32 MEQ/L (21-32); CHLORIDE LEVEL 105 MEQ/L (98-107); CREATININE FOR GFR 0.98 MG/DL (0.70-1.30); GLOMERULAR FILTRATION RATE > 60.0 (>49); GLUCOSE, FASTING 177 MG/DL (70-100); POTASSIUM SERUM 4.1 MEQ/L (3.5-5.1); SODIUM LEVEL 140 MEQ/L (136-145)
[2020-08-23] MEDS ORDERED: THROMBIN SOLN 20,000 UNITS KIT As Ordered ONE (10:13)
[2020-08-23] MEDS ORDERED: ISOVUE-300 61% 50ML VIAL As Ordered ONE (10:13)
[2020-08-23] MEDS ORDERED: BUPIVACAINE/EPIN 0.25% 30 ML VIAL As Ordered ONE (10:13)
[2020-08-23] MEDS ORDERED: HEPARIN SOD (PORCINE) 5000UNITS/ML 1ML VIAL/SYRINGE As Ordered ONE ×2 (10:13→14:12)
[2020-08-23] MEDS ORDERED: fentaNYL 250 MCG/5 ML INJECTION (J3010) As Ordered ONE (10:23)
[2020-08-23] MEDS ORDERED: MIDAZOLAM INJ 2MG/2ML VIAL (J2250 PER 1MG) As Ordered ONE (10:23)
[2020-08-23] MEDS ORDERED: LIDOCAINE 2% 100MG/5ML SDV (FOR ANES.) As Ordered ONE (10:23)
[2020-08-23] MEDS ORDERED: ROCURONIUM BROMIDE 50 MG/5 ML VIAL As Ordered ONE (10:23)
[2020-08-23] MEDS ORDERED: propofoL 200 MG/20 ML VIAL As Ordered ONE (10:23)
[2020-08-23] MEDS ORDERED: METOCLOPRAMIDE INJ 10MG/2ML VIAL (J2765 PER 1) As Ordered ONE (10:23)
[2020-08-23] MEDS ORDERED: ONDANSETRON 4MG/2ML VIAL As Ordered ONE (10:23)
[2020-08-23] MEDS ORDERED: BACITRACIN OINTMENT 30GM TUBE As Ordered ONE (11:17)
[2020-08-23] MEDS ORDERED: ceFAZolin 1GM VIAL (J0690 PER 500MG) As Ordered ONE (14:28)
[2020-08-23] MEDS ORDERED: fentaNYL 100 MCG/2 ML INJECTION (J3010) As Ordered ONE (16:27)
[2020-08-23] MEDS: fentaNYL 100 MCG/2 ML INJECTION (J3010) IV PRN ×2 (16:29→16:34)
[2020-08-23] MEDS ORDERED: ONDANSETRON 4MG/2ML VIAL IV PRN ×2 (16:30→16:35)
[2020-08-23] MEDS ORDERED: LR 1,000 ML IV SCH (16:30)
[2020-08-23] MEDS ORDERED: oxyCODONE 5MG TAB PO PRN (16:30)
[2020-08-23] MEDS ORDERED: HYDROMORPHONE HCL 0.5 MG/ 0.5 ML SYRINGE (J1170 PER 1) IV PRN (16:30)
--- NOTE | 2020-08-23 16:32 | ROOPDOC ---
[facility] Report Of Operation Report of Operation DATE OF PROCEDURE: 08/23/20 PREPROCEDURE DIAGNOSES: Atherosclerosis of the [place] arteries and failed right femoropopliteal bypass with claudication POSTPROCEDURE DIAGNOSES: Same PROCEDURE: 1. Redo exposure right femoral arteries, 60 minutes 2. Redo exposure right popliteal artery, 35 minutes 3. Right femoral endarterectomy with Xenosure patch angioplasty 4. Right femoral to below-knee popliteal bypass with cadaver vein SURGEON: Neno Fuller MD ANESTHESIA: Local anesthesia and general anesthesia INDICATION FOR PROCEDURE: This is a 65-year-old gentleman who was [place] us [place] with bilateral lower extremity failed femoropopliteal bypasses done by another provider and atherosclerosis of the [place] arteries with occlusion of the bilateral superficial femoral arteries. 3 months ago, he underwent a redo left lower extremity femoropopliteal bypass with endarterectomy, and he now returns to do the right leg. Risks benefits and alternatives to a right femoral endarterectomy and right femoral to below-knee popliteal redo bypass with cadaver vein were explained to the patient needs agreeable to proceed. Informed consent was obtained. REPORT OF OPERATION: The patient was brought to the operating room in stable condition. Antibiotics and anesthesia were administered without complication. His right groin and right lower extremity were prepped and draped in a sterile fashion and Ioban was placed over the skin. A timeout was performed. An oblique incision was made over the right inguinal ligament proximal to his previous longitudinal incision from his past surgery. This was carried down to the subcutaneous tissue and fascia with Bovie cautery. Bridging veins were suture ligated and divided. The patient has a very deep groin. Upon approaching the femoral sheath, we encountered dense challenging scar tissue. We spent 60 minutes carefully dissecting out the common femoral artery, circumflex vessels, profunda, SFA, and the failed bypass. Vesseloops were placed around the vessels. This took a great deal of time and effort as the scar tissue was very profound. Next, the previous incision for the below-knee popliteal exposure was opened longitudinally. There was extensive scar tissue here as well. This was carried down to the subcutaneous tissue to the fascia with Bovie cautery. The previous bypass was encountered and traced back to the popliteal artery. The muscle and fascia was scarred to the posterior femur. It took a while to dissecting this down off of the bone. We eventually were able to identify the popliteal vein and artery. They were densely scarred together and it took time to separate them. Finally, we're able to place Vesseloops around the proximal and distal popliteal artery. 5000 units of heparin was given and allowed to circulate. We returned to the right groin and a clamp was secured on the common femoral artery and the Vesseloops were secured on the more distal vessels in the femoral system. We then made a longitudinal arteriotomy and noted significant intimal hyperplasia, but no significant calcified plaque. We carefully endarterectomized the common femoral artery profunda and proximal SFA, and the intimal hyperplasia was sent for pathology. We then anastomosed a patch with running Prolene suture and before the final sutures are placed, we flushed the inflow and outflow artery and irrigated with heparinized saline. The final sutures are placed and flow was restored in good hemostasis was noted. Additional 1000 units of heparin was given and allowed to circulate. We prepared her cadaver vein per protocol, and a Bard tunneler was tunneled from the popliteal incision to the right groin incision. We then attached the distal end of the vein to the tunneler and pulled through the cannula and removed the cannula. Care was taken not to twist the vein. We flushed the vein with Saline to make sure it was not twisted. We then spatulated the end of the vein had a branch point. We resecured R clamp and Vesseloops and an arteriotomy was made in the vein was anastomosed to the artery and an end-to-side fashion with running 6-0 Prolene suture. Before the final sutures are placed we flushed the inflow and outflow artery with a bulldog clamp on the vein proximally. We then placed the final sutures in good hemostasis was noted when we restored flow through the arteries. We then returned to the popliteal incision. The vein was cut and beveled and spatulated to the appropriate length for a tension-free closure. We flushed arterial flow through the vein and found excellent strong bypass flow. The bulldog clamp was replaced proximally and the vein was irrigated with heparinized saline. He then secured the Vesseloops on the popliteal artery, removed the old bypass graft, removed some intimal hyperplasia from the popliteal artery, and then anastomosed the end of the vein to the artery and an end-to-side fashion with 6-0 Prolene suture. Before the final sutures are placed, we flushed the inflow and outflow artery and the bypass. We irrigated with heparinized saline in the final sutures are placed. Good hemostasis was noted. Doppler confirm triphasics flow through the bypass, at the common femoral artery and profunda, and at the distal popliteal artery. There was excellent perfusion of the foot which was warm pink with less than 1 second capillary refill. We irrigated both incisions with copious amounts of saline. At the popliteal incision, the deep fascia was approximated with 2-0 Vicryl suture. The superficial fascia was closed with 2-0 Vicryl suture. A few nylon mattress sutures were placed to approximate the skin edges and skin ginger were used then to close the skin. We irrigated the right groin with copious amounts of saline. The scar tissue around the femoral sheath was reapproximated carefully with 2-0 Vicryl suture. We then closed the fascia in 3 layers with 2-0 Vicryl suture. We approximated the deep dermal layer with interrupted 3-0 Vicryl sutures. A few nylon mattress sutures were used to approximate the skin edges and then skin ginger were used to close the skin. Both incisions were clean and dry. 4 x 4's and Tegaderms were placed as a final dressing. The patient was taken to recovery in stable condition. He tolerated the anesthesia and the surgery well. ESTIMATED BLOOD LOSS: Approximately 150 mL. COMPLICATIONS: None. PLAN: It is okay to resume his home diet and medications. He will be admitted to the hospitalist service for [facility]. He we will keep the Garica catheter in place until the morning. He will be on bedrest until the morning. Tomorrow morning, we will discontinue the Garcia catheter and he will be able to ambulate with assist. Physical therapy will be ordered if needed. Analgesia when necessary. Our plan will be for the patient to discharge home in 2-3 days depending on his progress. We appreciate the opportunity to participate in the care of this patient. NENO FULLER MD Aug 23, 2020 16:32
[2020-08-23] MEDS ORDERED: PILL CUTTER 1 EACH XX PRN (16:45)
[2020-08-23] MEDS ORDERED: PERCOCET 5MG/325MG TAB PO PRN (17:00)
[2020-08-23] MEDS ORDERED: DEXTROSE 50% 50 ML SYRINGE IV PRN (17:30)
[2020-08-23] MEDS ORDERED: GLUCAGON INJ 1MG VIAL SC PRN (17:30)
[2020-08-23] MEDS ORDERED: GLUCOSE 4GM CHEW TABLET PO PRN (17:30)
[2020-08-23] MEDS: HumaLOG INSULIN (NovoLOG) PER UNIT SC SCH ×2 (17:30→22:48)
--- NOTE | 2020-08-23 17:46 | HPEPDOC ---
[facility] Medical History & Physical Date of Admission Aug 23, 2020 Date of Service: Aug 23, 2020 Attending Physician: Cheryle Fish MD History and Physical MEDICAL H&P HISTORY OF PRESENT ILLNESS: Patient is a 65-year-old male with past medical history of severe bilateral lower PAD s/p failed bilateral femoral to below-knee popliteal bypasses, diabetes mellitus, hyperlipidemia, hypertension, COPD, chronic back pain, Gaspar's esophagus, history of grand mal seizures, anxiety/depression who under went elective right femoral artery endarterectomy with angioplasty and right femoral-popliteal bypass with cadaver vein surgery by Dr. Fuller on 08/23/2020. Preprocedure diagnosis was atherosclerosis of the [place] arteries and failed right femoral popliteal bypass with claudication. The patient is status post left redo femoral to below-knee bypass a few months ago. This lower extremity has good perfusion according to recent studies; however the right lower extremity revealed a chronic SFA occlusion and a right redo femoral to below-knee popliteal bypass with cadaver vein was planned. Pre-, intra-, and postoperatively there were no complications. Postoperatively the patient complained of some mild pain but was otherwise stable. He had minimal blood loss of 290787 mL. Posterior tibialis and popliteal pulses were present and strong in the right lower extremity, capillary refill all digits were less than 2 seconds. The patient was able to move all digits on command. He had no sensory or motor issues on exam. The patient was admitted under hospitalist service for medical management with vascular surgery following. REVIEW OF SYSTEMS: Neg except for what is mentioned above PAST MEDICAL HISTORY: severe PAD b/l lower ext Diabetes mellitus Hyperlipidemia Hypertension COPD Chronic back pain Gaspar's esophagus/intestinal metaplasia Osteoporosis History of grand mal seizures Anxiety Depression PAST SURGICAL HISTORY: Bilateral lower extremity femoral-popliteal bypasses Redo of the left lower extremity femoral-popliteal bypass with endarterectomy FAMILY HISTORY: DM, HTN SOCIAL HISTORY: Prior history of smoking for > 25 years, 1 PPD. Denies illicit drug or alcohol u se. Retired. Full Code. ALLERGIES: Please see below. HOME MEDICATIONS: Please see below. PHYSICAL EXAMINATION: VS: Please see below CONSTITUTIONAL: Lethargic but in NAD, resting comfortably, Ox3 EYES: PERRLA, EOM intact HENT, MOUTH: Normocephalic, atraumatic, moist mucous membranes, NC in place NECK: SUPPLE, no JVD, no lymphadenopathy, no carotid bruit CV: Regular rate and rhythm, S1S2 normal, no murmurs/rubs/gallops RESPIRATORY: Clear to auscultation bilaterally, no rales/rhonchi/wheezes GI: obese abd, BS positive in 4 quadrants, soft, nontender, nondistended, no rebound or guarding, no organomegaly : Garcia catheter MUSCULOSKELETAL: Normal ROM. No cyanosis, clubbing, swelling, joint deformity, extremity edema INTEGUMENTARY: large, clean incision in the left medial thigh and upper inner groin, nonsuppurative, no incr swelling or erythema. Otherwise skin is intact, no rashes, no lesions, no erythema NEUROLOGIC: Cranial Nerves II-XII are intact, no focal deficits LABORATORY DATA: Please see below IMAGING: None ASSESSMENT: 65-year-old male with past medical history of severe bilateral lower PAD s/p failed bilateral femoral to below-knee popliteal bypasses, diabetes mellitus, hyperlipidemia, hypertension, COPD, chronic back pain, Gaspar's esophagus, history of grand mal seizures, anxiety/depression who underwent elective right femoral artery endarterectomy with angioplasty and right femoral- popliteal bypass with cadaver vein surgery by Dr. Fuller on 08/23/2020. PLAN: Atherosclerosis of the [place] arteries and failed right femoral-popliteal bypass with claudication -POD 0 elective right femoral artery endarterectomy with angioplasty and right f emoral-popliteal bypass with cadaver vein surgery by Dr. Fuller -Minimal blood loss -C/w pain control, bedrest until 08/24/20, wound care -PT/OT to asses in the AM if no issues overnight. -Restart statin, ASA, plavix in the AM if ok'd by Vascular surgery -Dr. Fuller following closely HTN -Resume all home medications -Pharmacy to confirm if patient is on lasix or not, will restart if yes Diabetes mellitus -Holding PO meds -Starting on ISS, FS AC/HS, consistent carb/low salt diet Hyperlipidemia -C/w statin COPD -Stable, not in exacerbation -Can add albuterol PRN Chronic back pain/neuropathic pain -C/w baclofen TID -Holding home oxycodone while on pain meds prescribed here, resume at discharge -Confirming with pharmacy if patient is still on lyrica. If yes, restart Gaspar's esophagus/intestinal metaplasia -Not on home PPI, H2 ramirez History of grand mal seizures -On lyrica only Anxiety/Depression -Stable DVT px -SCD for LLE, holding other AC for now DISPOSITION: Admitted to hospitalist service, vascular surgery consulted to follow. Plan is discharge home when medically improved. Vital Signs Vital Signs Date Time Temp Pulse Resp B/P (MAP) Pulse Ox O2 Delivery O2 Flow Rate FiO2 08/23/20 16:51 98.0 86 15 174/82 (112) 99 Nasal Cannula 3 Laboratory Data Labs 24H Laboratory Tests 2 08/23/20 08:49: Nucleated Red Blood Cells % (auto) 0.0, Prothrombin Time 11.9, Prothromb Time International Ratio 0.86, Activated Partial Thromboplast Time 26.9, Anion Gap 3L, Glomerular Filtration Rate > 60.0, Calcium Level 8.9 08/23/20 09:21: Bedside Glucose (Misc Panel) 163H 08/23/20 16:54: Bedside Glucose (Misc Panel) 181H CBC/BMP Laboratory Tests 08/23/20 08:49 Home Medications Scheduled Alogliptin Benzoate (Nesina) 25 Mg Tablet, 25 MG PO DAILY Amlodipine Besylate (Amlodipine Besylate) 2.5 Mg Tablet, 5 MG PO DAILY Aspirin (Ecotrin) 81 Mg Tablet.dr, 81 MG PO DAILY Atenolol (Atenolol) 25 Mg Tablet, 25 MG PO BID Baclofen (Baclofen) 10 Mg Tablet, 10 MG PO TID Carboxymethylcellulose Sodium (Refresh Tears) 15 Ml Drops, 1 DROP OP QID Cholecalciferol (Vitamin D3) (Vitamin D3) 25 Mcg Capsule, 25 MCG PO DAILY Clopidogrel Bisulfate (Clopidogrel) 75 Mg Tablet, 75 MG PO DAILY Docusate Sodium (Docusate Sodium) 100 Mg Capsule, 100 MG PO DAILY Furosemide (Furosemide) 20 Mg Tablet, 20 MG PO DAILY Glipizide (Glipizide) 10 Mg Tablet, 20 MG PO BID Multivitamins (Thera M Plus Tablet) 1 Each Tablet, 1 TAB PO DAILY Naphazoline HCl/Pheniramine (Allergy Eye Drops) 15 Ml Drops, 1 DARIANA OP BID Olodaterol HCl (Striverdi Respimat) 4 Gm Mist.inhal, 2 PUFFS IN DAILY Oxycodone HCl (Oxycodone HCl) 5 Mg Tablet, 5 MG PO TID Pregabalin (Lyrica) 75 Mg Capsule, 75 MG PO BID Rosuvastatin Calcium (Rosuvastatin Calcium) 20 Mg Tablet, 10 MG PO QPM Miscellaneous Medications Capsaicin (Capsaicin) 42.5 Gm Cream..g., 0.1 % EX Allergies Coded Allergies: No Known Allergies (Unverified , 05/17/20) A-FIB/CHADSVASC A-FIB History Current/History of A-Fib/PAF?: No Current PO Anticoag Therapy: No Age/Risk Factor Scoring CHADSVASC: CHADSVASC Response (Comments) Value Age Risk Factor Age 65-74 years old 1 Gender Risk Factor Male 0 Hx of CHF No 0 Hx of HTN Yes 1 Hx of Stroke/TIA/or VTE No 0 Hx of Diabetes Yes 1 Hx of Vascular Disease Yes 1 Total 4 Treatment Treatment ordered: NONE Other anticoagulant ordered: none Cheryle Fish MD Aug 23, 2020 17:45
[2020-08-23] MEDS ORDERED: TROS20TA3 PO (17:56)
[2020-08-23] MEDS ORDERED: AMLO1TAB24 PO (17:56)
[2020-08-23] MEDS ORDERED: OXYC1TAB23 PO (17:56)
[2020-08-23] MEDS: amLODIPine 5 MG TAB PO SCH (18:17)
[2020-08-23] MEDS: PERCOCET 5MG/325MG TAB PO PRN ×2 (18:18→22:48)
[2020-08-23] MEDS ORDERED: POLYVINYL ALCOHOL OPHTH SOLN 15 ML(LIQUITEARS) OU PRN (19:40)
[2020-08-23] MEDS: HYDROmorphone 2 MG TAB PO PRN (20:38)
[2020-08-23] MEDS: ROSUVASTATIN 10 MG TAB (CRESTOR) PO SCH (20:39)
[2020-08-23] MEDS: PREGABALIN 75 MG CAP(LYRICA) PO SCH (20:39)
[2020-08-23] MEDS: BACLOFEN 10 MG TAB PO SCH (20:39)
[2020-08-23] MEDS: atenoloL 25 MG TAB PO SCH (20:40)
[2020-08-24 02:00] VITALS: BP 124/64
[2020-08-24] MEDS: HYDROmorphone 2 MG TAB PO PRN ×3 (02:12→20:02)
[2020-08-24] MEDS: PERCOCET 5MG/325MG TAB PO PRN ×5 (04:23→20:37)
[2020-08-24 06:00] VITALS: BP 114/86
[2020-08-24 06:42] LABS: HEMOGLOBIN 11.3 g/dl (13.5-17.5); MEAN CORPUSCULAR HEMOGLOBIN 31.5 pg (27.0-33.0); MEAN CORPUSCULAR HGB CONC 33.2 g/dl (32.0-36.5); MEAN CORPUSCULAR VOLUME 94.7 fl (80.0-96.0); PLATELET COUNT, AUTOMATED 119 10^3/uL (150-450); RED BLOOD COUNT 3.59 10^6/uL (4.30-6.10)
[2020-08-24 07:02] LABS: ALBUMIN 3.4 GM/DL (3.2-5.2); ALT/SGPT 32 U/L (12-78); BILIRUBIN,TOTAL 0.4 MG/DL (0.2-1.0); BLOOD UREA NITROGEN 13 MG/DL (7-18); CALCIUM LEVEL 8.1 MG/DL (8.8-10.2); CARBON DIOXIDE LEVEL 33 MEQ/L (21-32); CHLORIDE LEVEL 103 MEQ/L (98-107); CREATININE FOR GFR 0.86 MG/DL (0.70-1.30); GLOMERULAR FILTRATION RATE > 60.0 (>49); GLUCOSE, FASTING 165 MG/DL (70-100); POTASSIUM SERUM 4.1 MEQ/L (3.5-5.1); SODIUM LEVEL 140 MEQ/L (136-145); TOTAL PROTEIN 6.3 GM/DL (6.4-8.2)
[2020-08-24] MEDS: ASPIRIN 81MG ENTERIC TABLET PO SCH (08:35)
[2020-08-24] MEDS: FUROSEMIDE 10MG PER 1/2 TABLET PO SCH (08:35)
[2020-08-24] MEDS: HumaLOG INSULIN (NovoLOG) PER UNIT SC SCH ×4 (08:35→21:37)
[2020-08-24] MEDS: DOCUSATE SODIUM 100MG CAPSULE PO SCH (08:37)
[2020-08-24] MEDS: PREGABALIN 75 MG CAP(LYRICA) PO SCH ×2 (08:37→20:02)
[2020-08-24] MEDS: amLODIPine 5 MG TAB PO SCH (08:37)
[2020-08-24] MEDS: atenoloL 25 MG TAB PO SCH ×2 (08:37→20:06)
[2020-08-24] MEDS: BACLOFEN 10 MG TAB PO SCH ×3 (08:37→20:02)
[2020-08-24] MEDS: CLOPIDOGREL 75 MG TAB PO SCH (08:37)
--- NOTE | 2020-08-24 08:39 | IPNPDOC ---
Date Seen The patient was seen on 08/24/20. Progress Note Patient seen and examined postop day 1 status post right femoral endarterectomy and right femoral to below-knee popliteal bypass with cadaver vein. He is doing well today. Minimal pain complaints. He ate his entire breakfast. His Garcia catheter still in, but the nurses coming to take it out. After that, he is off bed rest and can get out of bed with assist. On exam, the right lower extremity is warm and well-perfused. He has a palpable DP pulse and dopplerable PT signal. He has a triphasic Doppler signal over the bypass in the thigh. The cath incision has a small amount of sanguinous drainage on the dressing, but no active bleeding noted. The incision was thoroughly cleaned. Kemal and sutures are intact. Dry dressing reapplied. At the right groin, no significant drainage noted on the dressing. The incision was clean and dry. All sutures and kemal are intact. A dry dressing was reapplied. The patient tolerated this well. Continue with analgesia when necessary and supportive care. Possibly home tomorrow or the next day depending on progress. We appreciate the opportunity to participate in the care of this patient. VS, I&O, 24H, [facility] Vital Signs/I&O Vital Signs Date Time Temp Pulse Resp B/P (MAP) Pulse Ox O2 Delivery O2 Flow Rate FiO2 08/24/20 06:00 98.6 82 18 114/86 (95) 92 Nasal Cannula 08/23/20 22:25 2.0 I&O- Last 24 Hours up to 6 AM 08/24/20 05:59 Intake Total 930 ml Output Total 750 ml Balance 180 ml Laboratory Data 24H LABS Laboratory Tests 2 08/23/20 08:49: Nucleated Red Blood Cells % (auto) 0.0, Prothrombin Time 11.9, Prothromb Time International Ratio 0.86, Activated Partial Thromboplast Time 26.9, Anion Gap 3L, Glomerular Filtration Rate > 60.0, Calcium Level 8.9 08/23/20 09:21: Bedside Glucose (Misc Panel) 163H 08/23/20 16:54: Bedside Glucose (Misc Panel) 181H 08/23/20 20:30: Bedside Glucose (Misc Panel) 269H 08/24/20 06:04: Nucleated Red Blood Cells % (auto) 0.0, Anion Gap 4L, Glomerular Filtration Rate > 60.0, Calcium Level 8.1L, Total Bilirubin 0.4, Aspartate Amino Transf (AST/SGOT) 24, Alanine Aminotransferase (ALT/SGPT) 32, Alkaline Phosphatase 68, Total Protein 6.3L, Albumin 3.4, Albumin/Globulin Ratio 1.2 CBC/BMP Laboratory Tests 08/23/20 08:49 08/24/20 06:04 NENO HARMAN MD Aug 24, 2020 08:38
[2020-08-24] MEDS ORDERED: OMEPRAZOLE 20 MG CAP PO ONE (11:55)
--- NOTE | 2020-08-24 11:56 | IPNPDOC ---
Text Note Date of Service The patient was seen on 08/24/20. NOTE Subjective: No any acute events overnight. Patient denies fever, chills, nausea, vomiting, diarrhea. Garcia catheter was removed today Objective: GENERAL APPEARANCE: NAD HEENT: no scleral icterus, no JVD, EOMI CARDIOVASCULAR: S1S2 LUNGS: CTA ABDOMEN: soft & not tender w palpitation MUSCULOSKELETAL: no cyanosis, no swelling INTEGUMENT: no generalized pallor, dressing over right medial thigh and upper inner groin intact, no significant drainage noted on the dressing NEUROLOGICAL: cranial nerve function from 2-12 intact intact, follows commands, speech not dysarthric Assessment and plan: 65-year-old male with past medical history of severe bilateral lower PAD s/p failed bilateral femoral to below-knee popliteal bypasses, diabetes mellitus, hyperlipidemia, hypertension, COPD, chronic back pain, Gaspar's esophagus, history of grand mal seizures, anxiety/depression who underwent elective right femoral artery endarterectomy with angioplasty and right femoral-popliteal bypass with cadaver vein surgery by Dr. Fuller on 08/23/2020. Atherosclerosis of the [place] arteries and failed right femoral-popliteal bypass with claudication -POD 1 elective right femoral artery endarterectomy with angioplasty and right femoral-popliteal bypass with cadaver vein surgery by Dr. Fuller Pain management -PT/OT -Continue with statin, ASA, plavix -Dr. Fuller following closely HTN Blood pressures under control Continue home cardioprotective medications Diabetes mellitus - ISS, FS AC/HS, consistent carb/low salt diet Hyperlipidemia -C/w statin COPD -Stable, not in exacerbation -Can add albuterol PRN Chronic back pain/neuropathic pain -C/w baclofen TID Continue home medications Gaspar's esophagus/intestinal metaplasia PPI History of grand mal seizures -On lyrica only Anxiety/Depression -Stable VS,Fishbone, I+O VS, Fishbone, I+O Laboratory Tests 08/24/20 06:04 Vital Signs Date Time Temp Pulse Resp B/P (MAP) Pulse Ox O2 Delivery O2 Flow Rate FiO2 08/24/20 09:52 18 Room Air 08/24/20 08:37 91 129/67 08/24/20 06:00 98.6 92 08/23/20 22:25 2.0 I&O- Last 24 Hours up to 6 AM 08/24/20 06:00 Intake Total 1110 ml Output Total 1100 ml Balance 10 ml GWENDOLYN ARROYO DO Aug 24, 2020 11:56
--- NOTE | 2020-08-24 12:22 | IPNPDOC ---
Text Note Date of Service The patient was seen on 08/24/20. NOTE Subjective: No any acute events overnight. Patient denies fever, chills, nausea, vomiting, diarrhea. Garcia catheter was removed today Objective: GENERAL APPEARANCE: NAD HEENT: no scleral icterus, no JVD, EOMI CARDIOVASCULAR: S1S2 LUNGS: CTA ABDOMEN: soft & not tender w palpitation MUSCULOSKELETAL: no cyanosis, no swelling INTEGUMENT: no generalized pallor, dressing over right medial thigh and upper inner groin intact, no significant drainage noted on the dressing NEUROLOGICAL: cranial nerve function from 2-12 intact intact, follows commands, speech not dysarthric Assessment and plan: 65-year-old male with past medical history of severe bilateral lower PAD s/p failed bilateral femoral to below-knee popliteal bypasses, diabetes mellitus, hyperlipidemia, hypertension, COPD, chronic back pain, Gaspar's esophagus, history of grand mal seizures, anxiety/depression who underwent elective right femoral artery endarterectomy with angioplasty and right femoral-popliteal bypass with cadaver vein surgery by Dr. Fuller on 08/23/2020. Atherosclerosis of the [place] arteries and failed right femoral-popliteal bypass with claudication -POD 1 elective right femoral artery endarterectomy with angioplasty and right femoral-popliteal bypass with cadaver vein surgery by Dr. Fuller Pain management -PT/OT -Continue with statin, ASA, plavix -Dr. Fuller following closely HTN Blood pressures under control Continue home cardioprotective medications Diabetes mellitus - ISS, FS AC/HS, consistent carb/low salt diet Hyperlipidemia -C/w statin COPD -Stable, not in exacerbation -Can add albuterol PRN Chronic back pain/neuropathic pain -C/w baclofen TID Continue home medications Gaspar's esophagus/intestinal metaplasia PPI History of grand mal seizures -On lyrica only Anxiety/Depression -Stable VS,Fishbone, I+O VS, Fishbone, I+O Laboratory Tests 08/24/20 06:04 Vital Signs Date Time Temp Pulse Resp B/P (MAP) Pulse Ox O2 Delivery O2 Flow Rate FiO2 08/24/20 10:22 18 Room Air 08/24/20 08:37 91 129/67 08/24/20 06:00 98.6 92 08/23/20 22:25 2.0 I&O- Last 24 Hours up to 6 AM 08/24/20 06:00 Intake Total 1110 ml Output Total 1100 ml Balance 10 ml GWENDOLYN ARROYO DO Aug 24, 2020 12:22
[2020-08-24 14:00] VITALS: BP 117/66
[2020-08-24 18:00] VITALS: BP 122/67
[2020-08-24] MEDS: ROSUVASTATIN 10 MG TAB (CRESTOR) PO SCH (20:02)
[2020-08-24 22:00] VITALS: BP 132/50
[2020-08-25] MEDS: PERCOCET 5MG/325MG TAB PO PRN ×2 (00:38→04:40)
[2020-08-25 06:00] VITALS: BP 138/64
[2020-08-25] MEDS: CLOPIDOGREL 75 MG TAB PO SCH (08:21)
[2020-08-25] MEDS: PREGABALIN 75 MG CAP(LYRICA) PO SCH (08:21)
[2020-08-25] MEDS: ASPIRIN 81MG ENTERIC TABLET PO SCH (08:21)
[2020-08-25] MEDS: FUROSEMIDE 10MG PER 1/2 TABLET PO SCH (08:21)
[2020-08-25] MEDS: DOCUSATE SODIUM 100MG CAPSULE PO SCH (08:21)
[2020-08-25] MEDS: BACLOFEN 10 MG TAB PO SCH (08:21)
[2020-08-25 08:22] VITALS: BP 151/86
[2020-08-25] MEDS: amLODIPine 5 MG TAB PO SCH (08:22)
[2020-08-25] MEDS: HumaLOG INSULIN (NovoLOG) PER UNIT SC SCH ×2 (08:22→12:28)
[2020-08-25] MEDS: atenoloL 25 MG TAB PO SCH (08:22)
--- NOTE | 2020-08-25 08:56 | IPNPDOC ---
Date Seen The patient was seen on 08/25/20. Progress Note Patient seen and examined postop day 2 status post right femoral endarterectomy and right femoral to below-knee popliteal bypass with cadaver vein. The patient is starting to get very agitated. This typically happens to him around hospital day 2 or 3. He becomes very agitated, is difficult to redirect, and consistently threatens to leave AMA. I had a long discussion with him preop and again today about the importance of staying for his postop care. The patient and I had multiple discussions preop about the importance of not leaving AMA and getting appropriate nursing care, analgesia, and physical therapy if needed for goal discharge home safely. We had this discussion again this morning, but the patient is resistant. He insists that he will be discharged today or he will check himself out the hospital. I discussed this with his nurse. He says no when allowed him to get in the shower, but the nurses he refused to shower. We will offer him a shower again today, but it is up to him. He will need to ambulate safely in the [place] prior to discharge. He says he was not allowed to ambulate yesterday, but the nurses say he did ambulate to the bathroom, but he was unst victor hugo getting on and off the toilet. He denies this. He just had a significant surgery on the right lower extremity, so some unsteadiness sounds fairly likely. I talked to him about the importance of not going home too soon, in order to avoid falls or other issues. He started to get quite heated with me, but I was able to redirect him towards a more appropriate conversation. We will do our best to work towards an expeditious discharge when it is safe and appropriate. On exam the patient's right lower extremity is warm and well-perfused. He has a triphasic signal over the femoropopliteal bypass. His incisions are clean dry and intact with minimal serosanguineous dressing drainage. The incisions were thoroughly cleaned. Argyle and sutures are intact. 4 x 4's and paper tape were replaced. The patient tolerated this well. He has a palpable DP pulse and a dopplerable PT signal. Capillary refill is less than 1 second. Plan to work towards disposition today or tomorrow to home. The patient is adamant if he is not discharged today he will leave AMA. We will continue to redirect him to stay in the hospital if that is what is appropriate for his recovery. We appreciate the opportunity to participate in the care of this patient. VS, I&O, 24H, Fishbone Vital Signs/I&O Vital Signs Date Time Temp Pulse Resp B/P (MAP) Pulse Ox O2 Delivery O2 Flow Rate FiO2 08/25/20 08:22 96 151/86 08/25/20 06:00 98.3 20 92 Room Air 08/23/20 22:25 2.0 I&O- Last 24 Hours up to 6 AM 08/25/20 06:00 Intake Total 1920 ml Output Total 2200 ml Balance -280 ml Laboratory Data 24H LABS Laboratory Tests 2 08/24/20 11:32: Bedside Glucose (Misc Panel) 233H 08/24/20 16:35: Bedside Glucose (Misc Panel) 244H 08/24/20 20:41: Bedside Glucose (Misc Panel) 266H 08/25/20 06:00: Bedside Glucose (Misc Panel) 222H NENO HARMAN MD Aug 25, 2020 08:56
[2020-08-25 09:00] VITALS: O2SAT 96
[2020-08-25] MEDS ORDERED: OMEPRAZOLE 20 MG CAP PO SCH (09:00)
[2020-08-25 10:00] LABS: BASO % 0.2 % (0.0-1.0); EOS # 0.1 10^3/uL (0.0-0.5); EOS % 1.6 % (0.0-3.0); HEMATOCRIT 34.8 % (42.0-52.0); HEMOGLOBIN 11.7 g/dl (13.5-17.5); LYMPH # 0.9 10^3/uL (1.5-5.0); LYMPH % 10.4 % (24.0-44.0); MEAN CORPUSCULAR HEMOGLOBIN 31.6 pg (27.0-33.0); MEAN CORPUSCULAR HGB CONC 33.6 g/dl (32.0-36.5); MEAN CORPUSCULAR VOLUME 94.1 fl (80.0-96.0); MONO # 0.6 10^3/uL (0.0-0.8); NEUTROPHILS # 6.8 10^3/uL (1.5-8.5); NEUTROPHILS % 79.3 % (36.0-66.0); PLATELET COUNT, AUTOMATED 111 10^3/uL (150-450); WHITE BLOOD COUNT 8.6 10^3/uL (4.0-10.0)
[2020-08-25 10:23] LABS: BLOOD UREA NITROGEN 10 MG/DL (7-18); CARBON DIOXIDE LEVEL 31 MEQ/L (21-32); CHLORIDE LEVEL 100 MEQ/L (98-107); CREATININE FOR GFR 0.87 MG/DL (0.70-1.30); GLOMERULAR FILTRATION RATE > 60.0 (>49); GLUCOSE, FASTING 334 MG/DL (70-100); POTASSIUM SERUM 3.8 MEQ/L (3.5-5.1); SODIUM LEVEL 136 MEQ/L (136-145)
[2020-08-25 10:24] LABS: CALCIUM LEVEL 8.2 MG/DL (8.8-10.2)
[2020-08-25] MEDS ORDERED: OMEP-218 PO (11:44)
--- NOTE | 2020-08-25 15:54 | DS.PDOC ---
Discharge Summary General Date of Admission Aug 23, 2020 at 08:22 Date of Discharge 08/25/20 Discharge Summary PROCEDURES PERFORMED DURING STAY: 1. Redo exposure right femoral arteries, 60 minutes 2. Redo exposure right popliteal artery, 35 minutes 3. Right femoral endarterectomy with Xenosure patch angioplasty 4. Right femoral to below-knee popliteal bypass with cadaver vein ADMITTING DIAGNOSES: Atherosclerosis of the [place] arteries and failed right femoral-popliteal bypass with claudication HTN Diabetes mellitus Hyperlipidemia COPD Gaspar's esophagus/intestinal metaplasia History of grand mal seizures Chronic back pain/neuropathic pain Anxiety/Depression DISCHARGE DIAGNOSES: Atherosclerosis of the [place] arteries and failed right femoral-popliteal bypass with claudication HTN Diabetes mellitus Hyperlipidemia COPD Gaspar's esophagus/intestinal metaplasia History of grand mal seizures Chronic back pain/neuropathic pain Anxiety/Depression COMPLICATIONS/CHIEF COMPLAINT: Atherosclerosis Of The [place] Arteries. HISTORY OF PRESENT ILLNESS: Patient is a 65-year-old male with past medical history of severe bilateral lower PAD s/p failed bilateral femoral to below-knee popliteal bypasses, diabetes mellitus, hyperlipidemia, hypertension, COPD, chronic back pain, Gaspar's esophagus, history of grand mal seizures, anxiety/depression who underwent elective right femoral artery endarterectomy with angioplasty and right femoral-popliteal bypass with cadaver vein surgery by Dr. Fuller on 08/23/2020. Preprocedure diagnosis was atherosclerosis of the [place] arteries and failed right femoral popliteal bypass with claudication. The patient is status post left redo femoral to below-knee bypass a few months ago. This lower extremity has good perfusion according to recent studies; however the right lower extremity revealed a chronic SFA occlusion and a right redo femoral to below-knee popliteal bypass with cadaver vein was planned. Pre-, intra-, and postoperatively there were no complications. Postoperatively the patient complained of some mild pain but was otherwise stable. He had minimal blood loss of [id number] mL. Posterior tibialis and popliteal pulses were present and strong in the right lower extremity, capillary refill all digits were less than 2 seconds. The patient was able to move all digits on command. He had no sensory or motor issues on exam. [facility] with vascular surgery following. HOSPITAL COURSE: During hospital stay the following issue addressed Atherosclerosis of the [place] arteries and failed right femoral-popliteal bypass with claudication -POD 2 elective right femoral artery endarterectomy with angioplasty and right femoral-popliteal bypass with cadaver vein surgery by Dr. Fuller Pain management -PT/OT -Continue with statin, ASA, plavix -Follow up with Dr. Fuller in the office next week HTN Blood pressures under control Continue home cardioprotective medications Diabetes mellitus - ISS, FS AC/HS, consistent carb/low salt diet Hyperlipidemia -C/w statin COPD -Stable, not in exacerbation -Can add albuterol PRN Chronic back pain/neuropathic pain -C/w baclofen TID Continue home medications Gaspar's esophagus/intestinal metaplasia PPI History of grand mal seizures -On lyrica only Anxiety/Depression -Stable DISCHARGE MEDICATIONS: Please see below. ALLERGIES: Please see below. PHYSICAL EXAMINATION ON DISCHARGE: GENERAL APPEARANCE: NAD HEENT: no scleral icterus, no JVD, EOMI CARDIOVASCULAR: S1S2 LUNGS: CTA ABDOMEN: soft & not tender w palpitation MUSCULOSKELETAL: no cyanosis, no swelling INTEGUMENT: no generalized pallor, dressing over right medial thigh and upper inner groin intact, no significant drainage noted on the dressing NEUROLOGICAL: cranial nerve function from 2-12 intact intact, follows commands, speech not dysarthric LABORATORY DATA: Please see below. PROGNOSIS: Fair ACTIVITY: [As tolerated]. DIET: Cardiac DISPOSITION: 01 Home, Self-Care. ITEMS TO FOLLOWUP ON ON OUTPATIENT: Follow-up with vascular surgeon on the next week, follow-up with PCP in 3-5 days DISCHARGE CONDITION: [Stable]. TIME SPENT ON DISCHARGE:30 minutes. Vital Signs/I&Os Vital Signs Date Time Temp Pulse Resp B/P (MAP) Pulse Ox O2 Delivery O2 Flow Rate FiO2 08/25/20 09:00 96 Room Air 08/25/20 08:22 96 151/86 08/25/20 06:00 98.3 20 08/23/20 22:25 2.0 I&O- Last 24 Hours up to 6 AM 08/25/20 06:00 Intake Total 1920 ml Output Total 2200 ml Balance -280 ml Laboratory Data Labs 24H Laboratory Tests 2 08/24/20 16:35: Bedside Glucose (Misc Panel) 244H 08/24/20 20:41: Bedside Glucose (Misc Panel) 266H 08/25/20 06:00: Bedside Glucose (Misc Panel) 222H 08/25/20 09:27: Immature Granulocyte % (Auto) 1.5, Neutrophils (%) (Auto) 79.3H, Lymphocytes (%) (Auto) 10.4L, Monocytes (%) (Auto) 7.0, Eosinophils (%) (Auto) 1.6, Basophils (%) (Auto) 0.2, Neutrophils # (Auto) 6.8, Lymphocytes # (Auto) 0.9L, Monocytes # (Auto) 0.6, Eosinophils # (Auto) 0.1, Basophils # (Auto) 0.0, Nucleated Red Blood Cells % (auto) 0.0, Anion Gap 5L, Glomerular Filtration Rate > 60.0, Geraldo cium Level 8.2L, Magnesium Level 2.0 08/25/20 11:18: Bedside Glucose (Misc Panel) 331H CBC/BMP Laboratory Tests 08/25/20 09:27 FSBS Laboratory Tests Test 08/24/20 16:35 08/24/20 20:41 08/25/20 06:00 08/25/20 11:18 Range/Units Bedside Glucose (Misc Panel) 244 266 222 331 80-115 MG/DL Discharge Medications Scheduled Alogliptin Benzoate (Nesina) 25 Mg Tablet, 25 MG PO DAILY, (Reported) Amlodipine Besylate (Amlodipine Besylate) 5 Mg Tablet, 5 MG PO DAILY, (Reported) Aspirin (Ecotrin) 81 Mg Tablet.dr, 81 MG PO DAILY, (Reported) Atenolol (Atenolol) 25 Mg Tablet, 25 MG PO BID, (Reported) Cholecalciferol (Vitamin D3) (Vitamin D3) 25 Mcg Capsule, 50 MCG PO DAILY, (Repo rted) Clopidogrel Bisulfate (Clopidogrel) 75 Mg Tablet, 75 MG PO DAILY, (Reported) Docusate Sodium (Docusate Sodium) 100 Mg Capsule, 100 MG PO DAILY, (Reported) Furosemide (Furosemide) 20 Mg Tablet, 10 MG PO DAILY, (Reported) Glipizide (Glipizide) 10 Mg Tablet, 20 MG PO BID, (Reported) Multivitamins (Thera M Plus Tablet) 1 Each Tablet, 1 TAB PO DAILY, (Reported) Naphazoline HCl/Pheniramine (Allergy Eye Drops) 15 Ml Drops, 1 DROP OU BID, (Reported) Olodaterol HCl (Striverdi Respimat) 4 Gm Mist.inhal, 2 PUFFS INH DAILY, (Reported) Omeprazole (Omeprazole) 20 Mg Capsule.dr, 20 MG PO DAILY Pregabalin (Lyrica) 75 Mg Capsule, 75 MG PO BID, (Reported) Rosuvastatin Calcium (Rosuvastatin Calcium) 20 Mg Tablet, 10 MG PO QPM, (Reported) Trospium Chloride (Trospium Chloride) 20 Mg Tablet, 20 MG PO DAILY, (Reported) Scheduled PRN Baclofen (Baclofen) 10 Mg Tablet, 10 MG PO TID PRN for MUSCLE SPASMS, (Reported) Capsaicin (Capsaicin) 42.5 Gm Cream..g., 1 APPLIC TOP QID PRN for PAIN, (R eported) Carboxymethylcellulose Sodium (Refresh Tears) 15 Ml Drops, 1 DROP OU QID PRN for DRY EYES, (Reported) Oxycodone HCl/Acetaminophen (Oxycodone-Acetaminophen 5-325) 1 Each Tablet, 1 TAB PO Q8H PRN for PAIN, (Reported) Allergies Coded Allergies: testosterone (Verified Allergy, Intermediate, RASH WHEN USING PATCHES, 08/23/20) atorvastatin (Verified Allergy, Unknown, 08/23/20) gabapentin (Verified Adverse Reaction, Severe, SYNCOPY, 08/23/20) methadone (Verified Adverse Reaction, Severe, SUICIDIAL IDEATION, 08/23/20) venlafaxine (Verified Adverse Reaction, Intermediate, ELEVATED BLOOD PRESSURE, 08/23/20) GWENDOLYN ARROYO DO Aug 25, 2020 15:54
== END 2020-08-25 12:30 | disposition home or self-care (01) | DRG 254 ==
LOC: M OR 08-23 08:22 → M MSPAV 08-23 17:23
PROVIDERS: ADMIT Surgery Vascular Surgery; ATTEND Internal Medicine
PROC: 04CK0ZZ Extirpation of Matter from Right Femoral Artery, Open Approach (ICD-10-PCS; principal; 2020-08-23 10:00)
PROC: 041K0KL Bypass Right Femoral Artery to Popliteal Artery with Nonautologous Tissue Substitute, Open Approach (ICD-10-PCS; 2020-08-23 10:00)
DX: I70.301 Unspecified atherosclerosis of unspecified type of bypass graft(s) of the extremities, right leg (principal); I10 Essential (primary) hypertension; E11.9 Type 2 diabetes mellitus without complications; J44.9 Chronic obstructive pulmonary disease, unspecified; E78.5 Hyperlipidemia, unspecified; F41.9 Anxiety disorder, unspecified; F32.9 Major depressive disorder, single episode, unspecified; G40.909 Epilepsy, unspecified, not intractable, without status epilepticus; K22.70 Barrett's esophagus without dysplasia; Z79.899 Other long term (current) drug therapy; Z79.82 Long term (current) use of aspirin; Z88.8 Allergy status to other drugs, medicaments and biological substances; M54.5 Low back pain; G62.9 Polyneuropathy, unspecified

== ENCOUNTER → 2020-08-18 | Outpatient (CLI) | payer OTHER ==
[~2020-08-18] MED LIST changes: -ALLE1DRO2 OP; +ALLE1DRO2 OU; +AMLO1TAB24 PO; -CAPS42.54 EX; +CAPS42.54 TOP; +OMEP-218 PO; +OXYC1TAB23 PO; -REFR0.5D8 OP; +REFR0.5D8 OU; -STRI1AER2 IN; +STRI1AER2 INH; +TROS20TA3 PO
== END ==
LOC: M LABSMTC 09:29
PROVIDERS: ATTEND Anesthesiology
DX: Z20.828 Contact with and (suspected) exposure to other viral communicable diseases (principal); Z11.59 Encounter for screening for other viral diseases
CPT/HCPCS: G0463; U0003

== ENCOUNTER → 2020-09-02 | Outpatient (CLI) | payer OTHER ==
[~2020-09-02] MED LIST changes: +AMLO1TAB24 PO; +OMEP-218 PO; +OXYC1TAB23 PO; +TROS20TA3 PO
--- NOTE | 2020-09-04 09:50 | ECWPNPC ---
PATIENT NAME: LILIAN IRWIN : 1955 GENDER: MALE VISIT DATE: 09/02/2020 DISCHARGE DATE: 09/02/20 1022 VISIT LOCKED DATE TIME: PHYSICIAN: FRANCISCO CERVANTES RESOURCE: FRANCISCO CERVANTES REASON FOR APPOINTMENT 1. BACK PAIN HISTORY OF PRESENT ILLNESS DEPRESSION SCREENING: PHQ-9 LITTLE INTEREST OR PLEASURE IN DOING THINGSNEARLY EVERY DAY FEELING DOWN, DEPRESSED, OR HOPELESSNEARLY EVERY DAY TROUBLE FALLING OR STAYING ASLEEP, OR SLEEPING TOO MUCHNEARLY EVERY DAY FEELING TIRED OR HAVING LITTLE ENERGYNEARLY EVERY DAY POOR APPETITE OR OVEREATING NEARLY EVERY DAY FEELING BAD ABOUT YOURSELF-OR THAT YOU ARE A FAILURE OR HAVE LET YOURSELF OR YOUR FAMILY DOWN NOT AT ALL TROUBLE CONCENTRATING ON THINGS, SUCH READING THE NEWSPAPER OR WATCHING TELEVISION NEARLY EVERY DAY MOVING OR SPEAKING SO SLOWLY THAT OTHER PEOPLE COULD HAVE NOTICED. OR THE OPPOSITE- BEING SO FIDGETY OR RESTLESS THAT YOU HAVE BEEN MOVING AROUND A LOT MORE THAN USUALNOT AT ALL THOUGHTS THAT YOU WOULD BE BETTER OFF , OR OF HURTING YOURSELF IN SOME WAY?NEARLY EVERY DAY(CONSIDER SUICIDE ASSESSMENT RISK) TOTAL SCORE:21 INTERPRETATIONSEVERE DEPRESSION PHQ-2 (2015 EDITION) LITTLE INTEREST OR PLEASURE IN DOING THINGS?NEARLY EVERY DAY FEELING DOWN, DEPRESSED, OR HOPELESS?NEARLY EVERY DAY TOTAL SCORE6 65-YEAR-OLD MALE IN FOR CHRONIC PAIN FOLLOW-UP. HE RATES HIS PAIN CURRENTLY AT AN 8 OUT OF 10 AND DESCRIBES IT BURNING. PATIENT FEELS THE MEDICATIONS ARE HELPFUL BUT THERE CURRENT DOSAGE THEY DO NOT HELP MANAGE ALL OF HIS PAIN SYMPTOMS. GENERAL: -. FALL RISK SCREENING: SCREENING : NO FALLS REPORTED IN THE LAST YEAR. PAIN SCREENING: PATIENT HAS A COMPLAINT OF ACUTE OR CHRONIC PAIN :YES LOCATION OF PAIN:MID BACK, LOW BACK INTENSITY OF PAIN (SCALE OF 1 TO 10):8 WHAT DOES YOUR PAIN FEEL LIKE:BURNING DURATION:CONTINOUS, CONSTANT, ALL DAY PAIN IS INCREASED BY:ACTIVITIES PAIN IS DECREASED BY:OTHERS NOTHING THAT WE TRY SO FAR NURSING NOTE: -. PAIN CENTER INTAKE QUESTIONS: DO YOU HAVE A HISTORY OF MRSA? :NO DO YOU TAKE A BLOOD THINNERS? :YES CLOPIDOGREL 75MG DO YOU HAVE ANY BLEEDING DISORDERS? :NO ANY NEW NUMBNESS OR WEAKNESS IN YOUR LEGS OR ARMS? :NO ANY PACEMAKER,DEFIBRILLATOR, OR DORSAL COLUMN STIMULATOR? :NO DO YOU HAVE ANY RASHES OR OPEN SORES? :YES ARE YOU ALLERGIC TO IV DYE? :NO ARE YOU DIABETIC? :NO ANY NEW PROBLEMS WITH YOUR MEDICATIONS? :NO HAVE YOU RECEIVED A VACCINE IN THE PAST 30 DAYS? :YES IF SO WHAT VACCINE AND WHEN? 2ND COVID 09/02/2020 DO YOU PLAN TO RECEIVE A VACCINE IN THE NEXT 21 DAYS? :NO DO YOU NEED ANY PRESCRIPTION? :NO DO YOU TAKE ANY IMMUNOSUPPRESSIVE MEDICATIONS? :NO DO YOU HAVE ANY KIDNEY OR LIVER DISEASE? :NO IS THERE A CHANCE YOU COULD BE ? :NO ARE YOU BREAST FEEDING? :NO CURRENT MEDICATIONS TAKING AMLODIPINE BESYLATE 10 MG TABLET 5 ML ORALLY ONCE A DAY TAKING ATENOLOL 25 MG TABLET 1 TABLET ORALLY ONCE A DAY TAKING OXYCODONE-ACETAMINOPHEN 5-325 MG TABLET 1 TABLET NEEDED ORALLY EVERY 6 HRS TAKING ALOGLIPTIN BENZOATE 25 MG TABLET 1 TABLET ORALLY ONCE A DAY TAKING CHOLECALCIFEROL 25 MCG (1000 UT) CAPSULE 2 CAPSULES ORALLY ONCE A DAY TAKING GLIPIZIDE 10 MG TABLET 2 TABLETS ORALLY 2 TIMES A DAY TAKING LYRICA 75 MG CAPSULE 1 CAPSULE ORALLY TWICE DAILY TAKING FUROSEMIDE 20 MG TABLET 1 TABLET ORALLY ONCE A DAY TAKING PLAVIX 75 MG TABLET 1 TABLET ORALLY ONCE A DAY TAKING GENTEAL TEARS 0.1-0.2-0.3 % SOLUTION DIRECTED OPHTHALMIC TAKING MULTIVITAMIN - TABLET 1 TABLET ORALLY ONCE A DAY TAKING COLACE 100 MG CAPSULE 1 CAPSULE NEEDED ORALLY ONCE A DAY TAKING ASPIR-LOW 81 MG TABLET DELAYED RELEASE 1 TABLET ORALLY ONCE A DAY TAKING KETOTIFEN FUMARATE 0.025 % SOLUTION 1 DROP INTO BOTH EYES OPHTHALMIC TWICE A DAY TAKING OLODATEROL HCL 2.5 MCG/ACT AEROSOL SOLUTION 2 PUFFS INHALATION ONCE A DAY TAKING SELENIUM SULFIDE 2.5 % SHAMPOO 1 APPLICATION TO WET SCALP EXTERNALLY DAILY TAKING ROSUVASTATIN CALCIUM 10 MG TABLET 1 TABLET ORALLY ONCE A DAY TAKING CLOPIDOGREL BISULFATE 75 MG TABLET 1 TABLET ORALLY ONCE A DAY TAKING DOCUSATE SODIUM 100 MG CAPSULE 1 CAPSULE NEEDED ORALLY ONCE A DAY TAKING OLODATEROL HCL 2.5 MCG/ACT AEROSOL SOLUTION 2 PUFFS INHALATION ONCE A DAY NOT-TAKING ASPIRIN 81 81 MG TABLET DELAYED RELEASE 1 TABLET ORALLY ONCE A DAY NOT-TAKING FUROSEMIDE 10 MG/ML SOLUTION 2 ML ORALLY ONCE A DAY NOT-TAKING COUMADIN NOT-TAKING FLAX SEEDS - POWDER DIRECTED ORALLY NOT-TAKING GLUCOSE 4 GM TABLET CHEWABLE DIRECTED ORALLY NOT-TAKING TESTOSTERONE 1.62 % GEL 2 PUMPS TO SKIN IN THE MORNING TO SHOULDER, UPPER ARMS OR ABDOMEN TRANSDERMAL ONCE A DAY NOT-TAKING PERCOCET 5-325 MG TABLET 1 TABLET NEEDED ORALLY EVERY 8 HRS PRN NOT-TAKING TYLENOL WITH CODEINE #3 300-30 MG TABLET 1 TABLET NEEDED ORALLY TID NOT-TAKING HYDROPHILIC - OINTMENT DIRECTED EXTERNALLY NOT-TAKING PROPRANOLOL HCL 60 MG CAPSULE EXTENDED RELEASE 1 CAPSULE ORALLY DAILY NOT-TAKING SERTRALINE HCL 50 MG TABLET 1 TABLET ORALLY ONCE A DAY NOT-TAKING TRAZODONE HCL 100 MG TABLET 1 TABLET AT BEDTIME ORALLY ONCE A DAY DISCONTINUED BACLOFEN 10 MG TABLET 1 TABLET WITH FOOD OR MILK ORALLY THREE TIMES A DAY MEDICATION LIST REVIEWED AND RECONCILED WITH THE PATIENT PAST MEDICAL HISTORY CHRONIC PAIN DEPRESSION PTSD ERIKA ESSENTIAL HTN HYPERLIPIDEMIA 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 ARTERIAL DISEASE GYNECOMASTIA SOLITARY NODULE OF LUNG HIDRADENITIS OSTEOPENIA INSOMNIA HYPOGONADISM ADIPOSIS ALLERGIES METHADONE HCL ACIPHEX ATORVASTATIN CALCIUM DICLOFENAC SODIUM EFFEXOR MORPHINE SULFATE NEURONTIN TESTOSTERONE SURGICAL HISTORY BYPASS SURGERY LEFT LEG 01/2020 BYPASS SURGERY RIGHT AND LEFT LEG BRAIN SURGERY RIGHT BUTTOCK X4 RIGHT ANKLE X4 BUTTOCK CYST REMOVED 05/2020 BYPASSS SURGERY RIGHT AND HIP 08/23/2020 SOCIAL HISTORY GENERAL: TOBACCO USE ARE YOU A:FORMER SMOKER HOW LONG HAS IT BEEN SINCE YOU LAST SMOKED?1-5 YEARS LATEX QUESTIONNAIRE LATEX ALLERGY : HAVE YOU EVER DEVELOPED ANY TYPE OF REACTION AFTER HANDLING LATEX PRODUCTS SUCH RUBBER GLOVES, CONDOMS, DIAPHRAGMS, BALLOONS, SOCKS, OR UNDERWEAR?NO LATEX ALLERGY : HAVE YOU EVER DEVELOPED ANY TYPE OF REACTION DURING OR AFTER DENTAL APPOINTMENT, VAGINAL/RECTAL EXAMINATION, SURGICAL PROCEDURE, OR ANY OTHER EXPOSURE?NO DATE ASKED : 07/05/2020 LATEX RISK : HAVE YOU EVER HAD ANY DIFFICULTY BREATHING OR HIVES AFTER EATING OR HANDLING ANY FRUITS, OR VEGETABLES; SUCH KIWI, BANANAS, STONE FRUITS, OR CHESTNUTSNO LATEX RISK : DO YOU HAVE A PREVIOUS PERSONAL HISTORY OF MORE THAN NINE SURGERIES, SPINA BIFIDA, OR REPEATED CATHERIZATIONS? YES - PLEASE INDICATE : > 9 SURGERIES LATEX RISK : ARE YOU FREQUENTLY EXPOSED TO LATEX PRODUCTS IN YOUR OCCUPATION?YES ALCOHOL USE: NO. ALCOHOL SCREENING DID YOU HAVE A DRINK CONTAINING ALCOHOL IN THE PAST YEAR?YES HOW OFTEN DID YOU HAVE SIX OR MORE DRINKS ON ONE OCCASION IN THE PAST YEAR?LESS THAN MONTHLY (1 POINT) HOW MANY DRINKS DID YOU HAVE ON A TYPICAL DAY WHEN YOU WERE DRINKING IN THE PAST YEAR?1 OR 2 (0 POINTS) HOW OFTEN DID YOU HAVE A DRINK CONTAINING ALCOHOL IN THE PAST YEAR?FOUR OR MORE TIMES A WEEK (4 POINTS) POINTS5 INTERPRETATIONPOSITIVE RECREATIONAL DRUG USE DRUG USE?NO CAFFEINE CAFFEINE USE?YES HOW OFTEN AND HOW MUCH? 2/DAY LANGUAGE LANGUAGES SPOKEN:SLOVENIAN LEARNING BARRIERS / SPECIAL NEEDS CHANGE FROM LAST VISIT?NO BARRIERS TO LEARNING?YES DIFFICULTY WITH SPELLING READING AND WRITING COMPREHENSION HEARING IMPAIRED?NO VISION IMPAIRED?YES :CORRECTIVE LENSES COGNITIVELY IMPAIRED?YES SEE ABOVE READINESS TO LEARN?YES LEARNING PREFERENCES?YES :DEMONSTRATION/VERBAL INSTRUCTION, OTHER (PLEASE COMMENT) HANDS ON LEARNING CAPABILITIES PRESENT?YES EMOTIONAL BARRIERS?YES PTSD DEPRESSION SPECIAL DEVICES?YES :CANE, WHEELCHAIR ONCE IN A WHILE WILL USE CANE LASTING ROOM SUPERVISOR NEEDED?NO DOMESTIC VIOLENCE DO YOU FEEL SAFE IN YOUR ENVIRONMENT?YES 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 DIET: HIGH PROTIEN DIET. MARITAL STATUS: .. OTHERS AT HOME: NONE. - HAS THE PATIENT BEEN EDUCATED REGARDING HIS/HER PLAN OF CARE?YES HAS THE PATIENT BEEN EDUCATED REGARDING PAIN, THE RISK FOR PAIN, THE IMPORTANCE OF EFFECTIVE PAIN MANAGEMENT, AND THE PAIN ASSESSMENT PROCESS?YES ADVANCE DIRECTIVE ADVANCE DIRECTIVE DISCUSSED WITH PATIENT:YES HCP BROTHER NAIDA IRWIN [phone] HOSPITALIZATION/MAJOR DIAGNOSTIC PROCEDURE SURGERY RELATED REVIEW OF SYSTEMS CONSTITUTIONAL: ANY RECENT FEVER NO . CHILLS NO . WEIGHT CHANGE OF UNKNOWN REASONS NO . GASTROENTEROLOGY: NEW UNEXPLAINABLE CHANGES IN BOWEL CONTROL NO . CONSTIPATION NO . GENITOURINARY: ANY NEW CHANGE IN BLADDER CONTROL? NO . NEUROLOGY: NEW ONSET DIZZINESS OR NEUROLOGICAL CHANGES NOT MENTIONED NO . NEW NUMBNESS OR PAIN PATTERNS NOT MENTIONED AND PERTINENT TO TODAY'S VISIT NO . CARDIOLOGY: NEW CHEST PRESSURE NO . PATIENT DENIES NO . RESPIRATORY: UNEXPLAINABLE COUGH NO . NEW SHORTNESS OF BREATH NO . VITAL SIGNS WT 225 LBS, HT 60 IN, BMI 43.94 INDEX, BP 111/53 MM HG, REPEAT BP 124/63 MM HG, HR 82 /MIN, RR 18 /MIN, TEMP 98.7 F, OXYGEN SAT % 99%, BLOOD GLUCOSE LEVEL 231, SAFE IN ENV? (Y/N) YEST.BRANDIE ANDERSON. EXAMINATION GENERAL EXAMINATION: GENERALNO ACUTE DISTRESS, WELL NOURISHED AND HYDRATED. PSYCHAPPROPRIATE MOOD AND AFFECT . LUNGS:CLEAR TO AUSCULTATION BILATERALLY, NO WHEEZES, RHONCHI, RALES. HEART:NO MURMURS, REGULAR RATE AND RHYTHM. ASSESSMENTS LOW BACK PAIN - M54.5 (PRIMARY) TREATMENT LOW BACK PAIN NOTES: 65-YEAR-OLD MALE IN FOR CHRONIC PAIN FOLLOW-UP. GIVEN PRESENTING SYMPTOMS RECOMMEND LYRICA 75 MG 3 TIMES A DAY AND PERCOCET 4 TIMES A DAY WITH FOLLOW-UP IN 3 MONTHS. DISCUSSED DEPRESSION WITH PATIENT AND HE DOES ADMIT TO SEEING COUNSELING SERVICES WITH THE [facility]. PATIENT HAS EXPRESSED UNDERSTANDING OF AND WAS IN AGREEMENT WITH TREATMENT PLAN. GIVEN TIME TO ASK QUESTIONS AND EXPRESS CONCERNS. , ISTOP REGISTRY REVIEWED AND DEMONSTRATES COMPLLIANCE. (REF # [id number]) BRINGS IN MEDICATIONS WHICH IS APPROPRIATE FOR WHAT WAS DISPENSED. RECENT URINE TOXICOLOGY REVIEWED. NO UNAUTHORIZED MEDICATIONS. NO ILLICIT SUBSTANCES AND PRESCRIBED MEDICATIONS WERE PRESENT. PROCEDURE CODES FA211 ESTABILISHED PATIENT [facility] CHARGE DISPOSITION & COMMUNICATION FOLLOW UP 3 MONTHS (REASON: BACK PAIN) ELECTRONICALLY SIGNED BY RELL GARDNER ON 09/03/2020 AT 09:21 AM EDT DISCLAIMER : THIS IS A VISIT SUMMARY EXTRACTED FROM THE [employer] CHART. IT IS NOT A COPY OF THE [employer] PROGRESS NOTE. EMANI
== END ==
LOC: M PAIN 09:45
PROVIDERS: ATTEND Family Medicine
DX: M54.5 Low back pain (principal); G89.29 Other chronic pain; G47.33 Obstructive sleep apnea (adult) (pediatric); E11.9 Type 2 diabetes mellitus without complications; J44.9 Chronic obstructive pulmonary disease, unspecified; G47.00 Insomnia, unspecified; Z86.59 Personal history of other mental and behavioral disorders; Z87.891 Personal history of nicotine dependence; Z88.5 Allergy status to narcotic agent; Z88.8 Allergy status to other drugs, medicaments and biological substances; E66.01 Morbid (severe) obesity due to excess calories; Z68.41 Body mass index [BMI] 40.0-44.9, adult; Z79.01 Long term (current) use of anticoagulants; Z79.82 Long term (current) use of aspirin; Z79.84 Long term (current) use of oral hypoglycemic drugs; Z79.899 Other long term (current) drug therapy

== ENCOUNTER → 2020-09-09 | Outpatient (CLI) | payer OTHER | LOC: M RAD 13:57 | PROVIDERS: ATTEND Physician Assistant | DX: I70.211 Atherosclerosis of native arteries of extremities with intermittent claudication, right leg (principal) ==

== ENCOUNTER → 2020-11-05 | Outpatient (CLI) | payer OTHER ==
--- NOTE | 2020-11-05 12:20 | REP ---
INDICATION: PAIN. COMPARISON: None. TECHNIQUE: Limited AP view of the pelvis. FINDINGS: Hip joints demonstrate moderate symmetric joint space narrowing with marginal spurring along the acetabular roof. No evidence for acute or healed injury. IMPRESSION: Symmetric early moderate degenerative changes to the bilateral hips. <Electronically signed by Elie Rob > 11/05/20 [id number]
== END ==
LOC: M SOG 11:29
PROVIDERS: ATTEND Orthopaedic Surgery Adult Reconstructive Orthopaedic Surgery
DX: M25.559 Pain in unspecified hip (principal)

== ENCOUNTER → 2020-12-03 | Outpatient (CLI) | payer OTHER ==
--- NOTE | 2020-12-07 04:50 | ECWPNPC ---
PATIENT NAME: LILIAN IRWIN : 1955 GENDER: MALE VISIT DATE: 12/03/2020 DISCHARGE DATE: 12/03/20 0000 VISIT LOCKED DATE TIME: PHYSICIAN: FRANCISCO CERVANTES RESOURCE: FRANCISCO CERVANTES REASON FOR APPOINTMENT 1. BACK PAIN HISTORY OF PRESENT ILLNESS GENERAL: HPI 65-YEAR-OLD MALE IN FOR CHRONIC PAIN FOLLOW-UP. HE RATES HIS PAIN CURRENTLY AN 8 OUT OF 10 AND DESCRIBES IT ACHING, AND CONTINUOUS. HE FEELS HIS MEDICATIONS ARE HELPFUL AND DENIES MED SIDE EFFECTS AT THIS TIME.. -. FALL RISK SCREENING: SCREENING SEVERAL FALLS REPORTED IN THE LAST YEAR WITHOUT INJURY.. PAIN SCREENING: PATIENT HAS A COMPLAINT OF ACUTE OR CHRONIC PAIN :YES LOCATION OF PAIN:NECK, UPPER BACK, MID BACK, LOW BACK INTENSITY OF PAIN (SCALE OF 1 TO 10):8 WHAT DOES YOUR PAIN FEEL LIKE:ACHING, CONTINOUS, SHARP NAUSEATING AND CRIPPLING DURATION:CONTINOUS, CONSTANT, AWAKENS FROM SLEEP PAIN IS INCREASED BY:ACTIVITIES, PROLONGED STANDING PAIN IS DECREASED BY:USE OF PAIN MEDICATIONS NURSING NOTE: -. PAIN CENTER INTAKE QUESTIONS: DO YOU HAVE A HISTORY OF MRSA? :NO DO YOU TAKE A BLOOD THINNERS? :YES CLOPIDOGREL 75MG DO YOU HAVE ANY BLEEDING DISORDERS? :NO ANY NEW NUMBNESS OR WEAKNESS IN YOUR LEGS OR ARMS? :YES BILATERAL ARM WEAKNESS ANY PACEMAKER,DEFIBRILLATOR, OR DORSAL COLUMN STIMULATOR? :NO DO YOU HAVE ANY RASHES OR OPEN SORES? :YES ARE YOU ALLERGIC TO IV DYE? :NO ARE YOU DIABETIC? :YES ANY NEW PROBLEMS WITH YOUR MEDICATIONS? :NO HAVE YOU RECEIVED A VACCINE IN THE PAST 30 DAYS? :YES IF SO WHAT VACCINE AND WHEN? 2ND COVID 09/02/2020 DO YOU PLAN TO RECEIVE A VACCINE IN THE NEXT 21 DAYS? :NO DO YOU NEED ANY PRESCRIPTION? :YES BACLOFEN, CLOPIDOGREL, PREGABALIN, OXYCODONE DO YOU TAKE ANY IMMUNOSUPPRESSIVE MEDICATIONS? :NO DO YOU HAVE ANY KIDNEY OR LIVER DISEASE? :NO IS THERE A CHANCE YOU COULD BE ? :NO ARE YOU BREAST FEEDING? :NO CURRENT MEDICATIONS TAKING AMLODIPINE BESYLATE 10 MG TABLET 5 ML ORALLY ONCE A DAY TAKING ATENOLOL 25 MG TABLET 1 TABLET ORALLY ONCE A DAY TAKING ALOGLIPTIN BENZOATE 25 MG TABLET 1 TABLET ORALLY ONCE A DAY TAKING CHOLECALCIFEROL 25 MCG (1000 UT) CAPSULE 2 CAPSULES ORALLY ONCE A DAY TAKING GLIPIZIDE 10 MG TABLET 2 TABLETS ORALLY 2 TIMES A DAY TAKING LYRICA 75 MG CAPSULE 1 CAPSULE ORALLY TWICE DAILY TAKING FUROSEMIDE 20 MG TABLET 1 TABLET ORALLY ONCE A DAY TAKING PLAVIX 75 MG TABLET 1 TABLET ORALLY ONCE A DAY TAKING GENTEAL TEARS 0.1-0.2-0.3 % SOLUTION DIRECTED OPHTHALMIC TAKING MULTIVITAMIN - TABLET 1 TABLET ORALLY ONCE A DAY TAKING COLACE 100 MG CAPSULE 1 CAPSULE NEEDED ORALLY ONCE A DAY TAKING ASPIR-LOW 81 MG TABLET DELAYED RELEASE 1 TABLET ORALLY ONCE A DAY TAKING KETOTIFEN FUMARATE 0.025 % SOLUTION 1 DROP INTO BOTH EYES OPHTHALMIC TWICE A DAY TAKING OLODATEROL HCL 2.5 MCG/ACT AEROSOL SOLUTION 2 PUFFS INHALATION ONCE A DAY TAKING SELENIUM SULFIDE 2.5 % SHAMPOO 1 APPLICATION TO WET SCALP EXTERNALLY DAILY TAKING ROSUVASTATIN CALCIUM 10 MG TABLET 1 TABLET ORALLY ONCE A DAY TAKING CLOPIDOGREL BISULFATE 75 MG TABLET 1 TABLET ORALLY ONCE A DAY TAKING DOCUSATE SODIUM 100 MG CAPSULE 1 CAPSULE NEEDED ORALLY ONCE A DAY TAKING OLODATEROL HCL 2.5 MCG/ACT AEROSOL SOLUTION 2 PUFFS INHALATION ONCE A DAY TAKING OXYCODONE-ACETAMINOPHEN 5-325 MG TABLET 1 TABLET NEEDED ORALLY EVERY 6 HRS NOT-TAKING ASPIRIN 81 81 MG TABLET DELAYED RELEASE 1 TABLET ORALLY ONCE A DAY NOT-TAKING FUROSEMIDE 10 MG/ML SOLUTION 2 ML ORALLY ONCE A DAY NOT-TAKING COUMADIN NOT-TAKING FLAX SEEDS - POWDER DIRECTED ORALLY NOT-TAKING GLUCOSE 4 GM TABLET CHEWABLE DIRECTED ORALLY NOT-TAKING TESTOSTERONE 1.62 % GEL 2 PUMPS TO SKIN IN THE MORNING TO SHOULDER, UPPER ARMS OR ABDOMEN TRANSDERMAL ONCE A DAY NOT-TAKING PERCOCET 5-325 MG TABLET 1 TABLET NEEDED ORALLY EVERY 8 HRS PRN NOT-TAKING TYLENOL WITH CODEINE #3 300-30 MG TABLET 1 TABLET NEEDED ORALLY TID NOT-TAKING HYDROPHILIC - OINTMENT DIRECTED EXTERNALLY NOT-TAKING PROPRANOLOL HCL 60 MG CAPSULE EXTENDED RELEASE 1 CAPSULE ORALLY DAILY NOT-TAKING SERTRALINE HCL 50 MG TABLET 1 TABLET ORALLY ONCE A DAY NOT-TAKING TRAZODONE HCL 100 MG TABLET 1 TABLET AT BEDTIME ORALLY ONCE A DAY MEDICATION LIST REVIEWED AND RECONCILED WITH THE PATIENT PAST MEDICAL HISTORY CHRONIC PAIN DEPRESSION PTSD ERIKA ESSENTIAL HTN HYPERLIPIDEMIA 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 ARTERIAL DISEASE GYNECOMASTIA SOLITARY NODULE OF LUNG HIDRADENITIS OSTEOPENIA INSOMNIA HYPOGONADISM ADIPOSIS ALLERGIES METHADONE HCL ACIPHEX ATORVASTATIN CALCIUM DICLOFENAC SODIUM EFFEXOR MORPHINE SULFATE NEURONTIN TESTOSTERONE SOCIAL HISTORY GENERAL: TOBACCO USE ARE YOU A:FORMER SMOKER HOW LONG HAS IT BEEN SINCE YOU LAST SMOKED?1-5 YEARS LATEX QUESTIONNAIRE LATEX ALLERGY : HAVE YOU EVER DEVELOPED ANY TYPE OF REACTION AFTER HANDLING LATEX PRODUCTS SUCH RUBBER GLOVES, CONDOMS, DIAPHRAGMS, BALLOONS, SOCKS, OR UNDERWEAR?NO LATEX ALLERGY : HAVE YOU EVER DEVELOPED ANY TYPE OF REACTION DURING OR AFTER DENTAL APPOINTMENT, VAGINAL/RECTAL EXAMINATION, SURGICAL PROCEDURE, OR ANY OTHER EXPOSURE?NO LATEX RISK : HAVE YOU EVER HAD ANY DIFFICULTY BREATHING OR HIVES AFTER EATING OR HANDLING ANY FRUITS, OR VEGETABLES; SUCH KIWI, BANANAS, STONE FRUITS, OR CHESTNUTSNO LATEX RISK : DO YOU HAVE A PREVIOUS PERSONAL HISTORY OF MORE THAN NINE SURGERIES, SPINA BIFIDA, OR REPEATED CATHERIZATIONS? YES - PLEASE INDICATE : > 9 SURGERIES LATEX RISK : ARE YOU FREQUENTLY EXPOSED TO LATEX PRODUCTS IN YOUR OCCUPATION?YES DATE ASKED : 12/03/2020 ALCOHOL USE: YES. TWO BEERS DAILY. ALCOHOL SCREENING DID YOU HAVE A DRINK CONTAINING ALCOHOL IN THE PAST YEAR?YES HOW OFTEN DID YOU HAVE SIX OR MORE DRINKS ON ONE OCCASION IN THE PAST YEAR?LESS THAN MONTHLY (1 POINT) HOW MANY DRINKS DID YOU HAVE ON A TYPICAL DAY WHEN YOU WERE DRINKING IN THE PAST YEAR?1 OR 2 (0 POINTS) HOW OFTEN DID YOU HAVE A DRINK CONTAINING ALCOHOL IN THE PAST YEAR?FOUR OR MORE TIMES A WEEK (4 POINTS) POINTS5 INTERPRETATIONPOSITIVE RECREATIONAL DRUG USE DRUG USE?NO CAFFEINE CAFFEINE USE?YES HOW OFTEN AND HOW MUCH? 2/DAY LANGUAGE LANGUAGES SPOKEN:FRENCH LEARNING BARRIERS / SPECIAL NEEDS CHANGE FROM LAST VISIT?NO BARRIERS TO LEARNING?YES DIFFICULTY WITH SPELLING READING AND WRITING COMPREHENSION HEARING IMPAIRED?NO VISION IMPAIRED?YES :CORRECTIVE LENSES COGNITIVELY IMPAIRED?YES SEE ABOVE READINESS TO LEARN?YES LEARNING PREFERENCES?YES :DEMONSTRATION/VERBAL INSTRUCTION, OTHER (PLEASE COMMENT) HANDS ON LEARNING CAPABILITIES PRESENT?YES EMOTIONAL BARRIERS?YES PTSD DEPRESSION SPECIAL DEVICES?YES :CANE, WHEELCHAIR ONCE IN A WHILE WILL USE CANE SUPERVISOR LENDING ACTIVITIES NEEDED?NO DOMESTIC VIOLENCE DO YOU FEEL SAFE IN YOUR ENVIRONMENT?YES 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 DIET: HIGH PROTIEN DIET. MARITAL STATUS: .. OTHERS AT HOME: NONE. - HAS THE PATIENT BEEN EDUCATED REGARDING HIS/HER PLAN OF CARE?YES HAS THE PATIENT BEEN EDUCATED REGARDING PAIN, THE RISK FOR PAIN, THE IMPORTANCE OF EFFECTIVE PAIN MANAGEMENT, AND THE PAIN ASSESSMENT PROCESS?YES ADVANCE DIRECTIVE ADVANCE DIRECTIVE DISCUSSED WITH PATIENT:YES HCP BROTHER NAIDA IRWIN [phone] REVIEW OF SYSTEMS CONSTITUTIONAL: ANY RECENT FEVER NO . CHILLS NO . WEIGHT CHANGE OF UNKNOWN REASONS NO . GASTROENTEROLOGY: NEW UNEXPLAINABLE CHANGES IN BOWEL CONTROL NO . CONSTIPATION NO . GENITOURINARY: ANY NEW CHANGE IN BLADDER CONTROL? NO . NEUROLOGY: NEW ONSET DIZZINESS OR NEUROLOGICAL CHANGES NOT MENTIONED NO . NEW NUMBNESS OR PAIN PATTERNS NOT MENTIONED AND PERTINENT TO TODAY'S VISIT NO . CARDIOLOGY: NEW CHEST PRESSURE NO . PATIENT DENIES NO . RESPIRATORY: UNEXPLAINABLE COUGH NO . NEW SHORTNESS OF BREATH NO . VITAL SIGNS WT 240 LBS, HT 60 IN, BMI 46.87 INDEX, BP 145/68 MM HG, HR 88 /MIN, RR 20 /MIN, TEMP 97.8 F, OXYGEN SAT % 95%, SAFE IN ENV? (Y/N) YES, NA INITIALS IN 09:05LEYDI LOPEZ MA. EXAMINATION GENERAL EXAMINATION: GENERALNO ACUTE DISTRESS, WELL NOURISHED AND HYDRATED. PSYCHAPPROPRIATE MOOD AND AFFECT . LUNGS:CLEAR TO AUSCULTATION BILATERALLY, NO WHEEZES, RHONCHI, RALES. HEART:NO MURMURS, REGULAR RATE AND RHYTHM. ASSESSMENTS LOW BACK PAIN - M54.5 (PRIMARY) CHRONIC PRESCRIPTION OPIATE USE - Z79.891 TREATMENT LOW BACK PAIN NOTES: 65-YEAR-OLD MALE IN FOR CHRONIC PAIN FOLLOW-UP. GIVEN PRESENTING SYMPTOMS RECOMMEND LYRICA 75 MG 3 TIMES A DAY AND PERCOCET 4 TIMES A DAY WITH FOLLOW-UP IN 3 MONTHS. PATIENT HAS EXPRESSED UNDERSTANDING OF AND WAS IN AGREEMENT WITH TREATMENT PLAN. GIVEN TIME TO ASK QUESTIONS AND EXPRESS CONCERNS. , ISTOP REGISTRY REVIEWED AND DEMONSTRATES COMPLLIANCE. (REF # [id number]) BRINGS IN MEDICATIONS WHICH IS APPROPRIATE FOR WHAT WAS DISPENSED. RECENT URINE TOXICOLOGY REVIEWED. NO UNAUTHORIZED MEDICATIONS. NO ILLICIT SUBSTANCES AND PRESCRIBED MEDICATIONS WERE PRESENT. CHRONIC PRESCRIPTION OPIATE USE LAB: URINE TEST GROUP LEYDI LOPEZ 12/03/2020 9:47:54 AM > LAST DOSE: OXYCODONE 12/03/2020 AT 0400; PREGABALIN 12/03/2020 AT 0400 PROCEDURE CODES FA211 ESTABILISHED PATIENT [facility] CHARGE DISPOSITION & COMMUNICATION FOLLOW UP 3 MONTHS (REASON: LBP) ELECTRONICALLY SIGNED BY RELL GARDNER ON 12/06/2020 AT 08:24 AM EDT DISCLAIMER : THIS IS A VISIT SUMMARY EXTRACTED FROM THE [employer] CHART. IT IS NOT A COPY OF THE [employer] PROGRESS NOTE. EMANI
== END ==
LOC: M PAIN 09:45
PROVIDERS: ATTEND Family Medicine
DX: M54.5 Low back pain (principal); G89.29 Other chronic pain; E11.9 Type 2 diabetes mellitus without complications; G47.33 Obstructive sleep apnea (adult) (pediatric); J44.9 Chronic obstructive pulmonary disease, unspecified; Z86.59 Personal history of other mental and behavioral disorders; Z87.891 Personal history of nicotine dependence; Z88.5 Allergy status to narcotic agent; Z88.8 Allergy status to other drugs, medicaments and biological substances; E66.01 Morbid (severe) obesity due to excess calories; Z68.42 Body mass index [BMI] 45.0-49.9, adult; Z79.01 Long term (current) use of anticoagulants; Z79.82 Long term (current) use of aspirin; Z79.84 Long term (current) use of oral hypoglycemic drugs; Z79.899 Other long term (current) drug therapy

== ENCOUNTER → 2020-12-31 | Outpatient (CLI) | payer OTHER ==
--- NOTE | 2021-01-03 23:47 | ECWPNPC ---
PATIENT NAME: LILIAN IRWIN : 1955 GENDER: MALE VISIT DATE: 12/31/2020 DISCHARGE DATE: 12/31/20 1129 VISIT LOCKED DATE TIME: PHYSICIAN: FRANCISCO CERVANTES RESOURCE: FRANCISCO CERVANTES REASON FOR APPOINTMENT 1. LOW BACK PAIN HISTORY OF PRESENT ILLNESS GENERAL: HPI 65-YEAR-OLD MALE IN FOR CHRONIC PAIN FOLLOW-UP. HE RATES HIS PAIN CURRENTLY AT A 10 OUT OF 10 AND DESCRIBES IT ACHING, BURNING, SHARP, AND STABBING. PATIENT FEELS HIS MEDICATIONS ARE HELPFUL BUT DOES ADMIT TO BREAKTHROUGH PAIN AT TIMES.. -. FALL RISK SCREENING: SCREENING : ONE FALL REPORTED IN THE LAST YEAR WITH INJURY. PAIN SCREENING: PATIENT HAS A COMPLAINT OF ACUTE OR CHRONIC PAIN :YES LOCATION OF PAIN:LOW BACK, LEFT HIP, RIGHT HIP INTENSITY OF PAIN (SCALE OF 1 TO 10):10 WHAT DOES YOUR PAIN FEEL LIKE:ACHING, BURNING, SHARP, STABBING, THROBBING, SHOOTING DURATION:CONTINOUS PAIN IS INCREASED BY:ACTIVITIES PAIN IS DECREASED BY:USE OF PAIN MEDICATIONS NURSING NOTE: -. PAIN CENTER INTAKE QUESTIONS: DO YOU HAVE A HISTORY OF MRSA? :NO DO YOU TAKE A BLOOD THINNERS? :YES CLOPIDOGREL 75MG DO YOU HAVE ANY BLEEDING DISORDERS? :NO ANY NEW NUMBNESS OR WEAKNESS IN YOUR LEGS OR ARMS? :YES BILATERAL ARM WEAKNESS ANY PACEMAKER,DEFIBRILLATOR, OR DORSAL COLUMN STIMULATOR? :NO DO YOU HAVE ANY RASHES OR OPEN SORES? :YES ARE YOU ALLERGIC TO IV DYE? :NO ARE YOU DIABETIC? :YES ANY NEW PROBLEMS WITH YOUR MEDICATIONS? :NO HAVE YOU RECEIVED A VACCINE IN THE PAST 30 DAYS? :YES IF SO WHAT VACCINE AND WHEN? 2ND COVID 09/02/2020 DO YOU PLAN TO RECEIVE A VACCINE IN THE NEXT 21 DAYS? :NO DO YOU NEED ANY PRESCRIPTION? :YES BACLOFEN, PREGABALIN, OXYCODONE DO YOU TAKE ANY IMMUNOSUPPRESSIVE MEDICATIONS? :NO DO YOU HAVE ANY KIDNEY OR LIVER DISEASE? :NO IS THERE A CHANCE YOU COULD BE ? :NO ARE YOU BREAST FEEDING? :NO CURRENT MEDICATIONS TAKING AMLODIPINE BESYLATE 10 MG TABLET 5 ML ORALLY ONCE A DAY TAKING ATENOLOL 25 MG TABLET 1 TABLET ORALLY ONCE A DAY TAKING ALOGLIPTIN BENZOATE 25 MG TABLET 1 TABLET ORALLY ONCE A DAY TAKING CHOLECALCIFEROL 25 MCG (1000 UT) CAPSULE 2 CAPSULES ORALLY ONCE A DAY TAKING GLIPIZIDE 10 MG TABLET 2 TABLETS ORALLY 2 TIMES A DAY TAKING LYRICA 75 MG CAPSULE 1 CAPSULE ORALLY TWICE DAILY TAKING FUROSEMIDE 20 MG TABLET 1 TABLET ORALLY ONCE A DAY TAKING PLAVIX 75 MG TABLET 1 TABLET ORALLY ONCE A DAY TAKING GENTEAL TEARS 0.1-0.2-0.3 % SOLUTION DIRECTED OPHTHALMIC TAKING MULTIVITAMIN - TABLET 1 TABLET ORALLY ONCE A DAY TAKING COLACE 100 MG CAPSULE 1 CAPSULE NEEDED ORALLY ONCE A DAY TAKING ASPIR-LOW 81 MG TABLET DELAYED RELEASE 1 TABLET ORALLY ONCE A DAY TAKING KETOTIFEN FUMARATE 0.025 % SOLUTION 1 DROP INTO BOTH EYES OPHTHALMIC TWICE A DAY TAKING OLODATEROL HCL 2.5 MCG/ACT AEROSOL SOLUTION 2 PUFFS INHALATION ONCE A DAY TAKING SELENIUM SULFIDE 2.5 % SHAMPOO 1 APPLICATION TO WET SCALP EXTERNALLY DAILY TAKING ROSUVASTATIN CALCIUM 10 MG TABLET 1 TABLET ORALLY ONCE A DAY TAKING CLOPIDOGREL BISULFATE 75 MG TABLET 1 TABLET ORALLY ONCE A DAY TAKING DOCUSATE SODIUM 100 MG CAPSULE 1 CAPSULE NEEDED ORALLY ONCE A DAY TAKING OLODATEROL HCL 2.5 MCG/ACT AEROSOL SOLUTION 2 PUFFS INHALATION ONCE A DAY TAKING OXYCODONE-ACETAMINOPHEN 5-325 MG TABLET 1 TABLET NEEDED ORALLY EVERY 6 HRS TAKING BACLOFEN 10 MG TABLET 1 TABLET NEEDED ORALLY TWICE A DAY NOT-TAKING ASPIRIN 81 81 MG TABLET DELAYED RELEASE 1 TABLET ORALLY ONCE A DAY NOT-TAKING FUROSEMIDE 10 MG/ML SOLUTION 2 ML ORALLY ONCE A DAY NOT-TAKING COUMADIN NOT-TAKING FLAX SEEDS - POWDER DIRECTED ORALLY NOT-TAKING GLUCOSE 4 GM TABLET CHEWABLE DIRECTED ORALLY NOT-TAKING TESTOSTERONE 1.62 % GEL 2 PUMPS TO SKIN IN THE MORNING TO SHOULDER, UPPER ARMS OR ABDOMEN TRANSDERMAL ONCE A DAY NOT-TAKING PERCOCET 5-325 MG TABLET 1 TABLET NEEDED ORALLY EVERY 8 HRS PRN NOT-TAKING TYLENOL WITH CODEINE #3 300-30 MG TABLET 1 TABLET NEEDED ORALLY TID NOT-TAKING HYDROPHILIC - OINTMENT DIRECTED EXTERNALLY NOT-TAKING PROPRANOLOL HCL 60 MG CAPSULE EXTENDED RELEASE 1 CAPSULE ORALLY DAILY NOT-TAKING SERTRALINE HCL 50 MG TABLET 1 TABLET ORALLY ONCE A DAY NOT-TAKING TRAZODONE HCL 100 MG TABLET 1 TABLET AT BEDTIME ORALLY ONCE A DAY MEDICATION LIST REVIEWED AND RECONCILED WITH THE PATIENT PAST MEDICAL HISTORY CHRONIC PAIN DEPRESSION PTSD ERIKA ESSENTIAL HTN HYPERLIPIDEMIA 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 ARTERIAL DISEASE GYNECOMASTIA SOLITARY NODULE OF LUNG HIDRADENITIS OSTEOPENIA INSOMNIA HYPOGONADISM ADIPOSIS ONE FALL REPORTED IN THE LAST YEAR WITH INJURY ALLERGIES METHADONE HCL ACIPHEX ATORVASTATIN CALCIUM DICLOFENAC SODIUM EFFEXOR MORPHINE SULFATE NEURONTIN TESTOSTERONE SOCIAL HISTORY GENERAL: TOBACCO USE ARE YOU A:FORMER SMOKER HOW LONG HAS IT BEEN SINCE YOU LAST SMOKED?1-5 YEARS LATEX QUESTIONNAIRE LATEX ALLERGY : HAVE YOU EVER DEVELOPED ANY TYPE OF REACTION AFTER HANDLING LATEX PRODUCTS SUCH RUBBER GLOVES, CONDOMS, DIAPHRAGMS, BALLOONS, SOCKS, OR UNDERWEAR?NO LATEX ALLERGY : HAVE YOU EVER DEVELOPED ANY TYPE OF REACTION DURING OR AFTER DENTAL APPOINTMENT, VAGINAL/RECTAL EXAMINATION, SURGICAL PROCEDURE, OR ANY OTHER EXPOSURE?NO DATE ASKED : 12/03/2020 LATEX RISK : HAVE YOU EVER HAD ANY DIFFICULTY BREATHING OR HIVES AFTER EATING OR HANDLING ANY FRUITS, OR VEGETABLES; SUCH KIWI, BANANAS, STONE FRUITS, OR CHESTNUTSNO LATEX RISK : DO YOU HAVE A PREVIOUS PERSONAL HISTORY OF MORE THAN NINE SURGERIES, SPINA BIFIDA, OR REPEATED CATHERIZATIONS? YES - PLEASE INDICATE : > 9 SURGERIES LATEX RISK : ARE YOU FREQUENTLY EXPOSED TO LATEX PRODUCTS IN YOUR OCCUPATION?YES ALCOHOL USE: YES. TWO BEERS DAILY. ALCOHOL SCREENING DID YOU HAVE A DRINK CONTAINING ALCOHOL IN THE PAST YEAR?YES HOW OFTEN DID YOU HAVE SIX OR MORE DRINKS ON ONE OCCASION IN THE PAST YEAR?LESS THAN MONTHLY (1 POINT) HOW MANY DRINKS DID YOU HAVE ON A TYPICAL DAY WHEN YOU WERE DRINKING IN THE PAST YEAR?1 OR 2 (0 POINTS) HOW OFTEN DID YOU HAVE A DRINK CONTAINING ALCOHOL IN THE PAST YEAR?FOUR OR MORE TIMES A WEEK (4 POINTS) POINTS5 INTERPRETATIONPOSITIVE RECREATIONAL DRUG USE DRUG USE?NO CAFFEINE CAFFEINE USE?YES HOW OFTEN AND HOW MUCH? 2/DAY LANGUAGE LANGUAGES SPOKEN:[place] LEARNING BARRIERS / SPECIAL NEEDS CHANGE FROM LAST VISIT?NO BARRIERS TO LEARNING?YES DIFFICULTY WITH SPELLING READING AND WRITING COMPREHENSION HEARING IMPAIRED?NO VISION IMPAIRED?YES :CORRECTIVE LENSES COGNITIVELY IMPAIRED?YES SEE ABOVE READINESS TO LEARN?YES LEARNING PREFERENCES?YES :DEMONSTRATION/VERBAL INSTRUCTION, OTHER (PLEASE COMMENT) HANDS ON LEARNING CAPABILITIES PRESENT?YES EMOTIONAL BARRIERS?YES PTSD DEPRESSION SPECIAL DEVICES?YES :CANE, WHEELCHAIR ONCE IN A WHILE WILL USE CANE FLIGHT TEST ENGINEER NEEDED?NO DOMESTIC VIOLENCE DO YOU FEEL SAFE IN YOUR ENVIRONMENT?YES 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 DIET: HIGH PROTIEN DIET. MARITAL STATUS: .. OTHERS AT HOME: NONE. - HAS THE PATIENT BEEN EDUCATED REGARDING HIS/HER PLAN OF CARE?YES HAS THE PATIENT BEEN EDUCATED REGARDING PAIN, THE RISK FOR PAIN, THE IMPORTANCE OF EFFECTIVE PAIN MANAGEMENT, AND THE PAIN ASSESSMENT PROCESS?YES ADVANCE DIRECTIVE ADVANCE DIRECTIVE DISCUSSED WITH PATIENT:YES HCP BROTHER NAIDA IRWIN [phone] REVIEW OF SYSTEMS CONSTITUTIONAL: ANY RECENT FEVER NO . CHILLS NO . WEIGHT CHANGE OF UNKNOWN REASONS NO . GASTROENTEROLOGY: NEW UNEXPLAINABLE CHANGES IN BOWEL CONTROL NO . CONSTIPATION NO . GENITOURINARY: ANY NEW CHANGE IN BLADDER CONTROL? NO . NEUROLOGY: NEW ONSET DIZZINESS OR NEUROLOGICAL CHANGES NOT MENTIONED NO . NEW NUMBNESS OR PAIN PATTERNS NOT MENTIONED AND PERTINENT TO TODAY'S VISIT NO . CARDIOLOGY: NEW CHEST PRESSURE NO . PATIENT DENIES NO . RESPIRATORY: UNEXPLAINABLE COUGH NO . NEW SHORTNESS OF BREATH NO . VITAL SIGNS WT 239.0 LBS, HT 60 IN, BMI 46.67 INDEX, BP 157/79 MM HG, HR 83 /MIN, RR 18 /MIN, TEMP 98.6 F, OXYGEN SAT % 96%, SAFE IN ENV? (Y/N) Y, NA INITIALS AW 1035, REVIEWED BY: EM. EXAMINATION GENERAL EXAMINATION: GENERALNO ACUTE DISTRESS, WELL NOURISHED AND HYDRATED. PSYCHAPPROPRIATE MOOD AND AFFECT . LUNGS:CLEAR TO AUSCULTATION BILATERALLY, NO WHEEZES, RHONCHI, RALES. HEART:NO MURMURS, REGULAR RATE AND RHYTHM. ASSESSMENTS LOW BACK PAIN - M54.5 (PRIMARY) TREATMENT LOW BACK PAIN NOTES: 65-YEAR-OLD MALE IN FOR CHRONIC PAIN FOLLOW-UP. GIVEN PRESENTING SYMPTOMS RECOMMEND INCREASING LYRICA TO 100 MG 3 TIMES DAILY WITH FOLLOW-UP IN 2 MONTHS TO DETERMINE EFFICACY OF TREATMENT. PATIENT HAS EXPRESSED UNDERSTANDING OF AND WAS IN AGREEMENT WITH TREATMENT PLAN. GIVEN TIME TO ASK QUESTIONS AND EXPRESS CONCERNS. , ISTOP REGISTRY REVIEWED AND DEMONSTRATES COMPLLIANCE. (REF # [id number] BRINGS IN MEDICATIONS WHICH IS APPROPRIATE FOR WHAT WAS DISPENSED. RECENT URINE TOXICOLOGY REVIEWED. NO UNAUTHORIZED MEDICATIONS. NO ILLICIT SUBSTANCES AND PRESCRIBED MEDICATIONS WERE PRESENT. PROCEDURE CODES FA211 ESTABILISHED PATIENT [facility] CHARGE DISPOSITION & COMMUNICATION FOLLOW UP 2 MONTHS (REASON: MED INCREASE) ELECTRONICALLY SIGNED BY RELL GARDNER ON 01/03/2021 AT 08:30 AM EDT DISCLAIMER : THIS IS A VISIT SUMMARY EXTRACTED FROM THE [employer] CHART. IT IS NOT A COPY OF THE [employer] PROGRESS NOTE. EMANI
== END ==
LOC: M PAIN 11:00
PROVIDERS: ATTEND Family Medicine
DX: G89.29 Other chronic pain (principal); M54.5 Low back pain; F32.9 Major depressive disorder, single episode, unspecified; F43.10 Post-traumatic stress disorder, unspecified; G47.33 Obstructive sleep apnea (adult) (pediatric); I10 Essential (primary) hypertension; E78.5 Hyperlipidemia, unspecified; E11.51 Type 2 diabetes mellitus with diabetic peripheral angiopathy without gangrene; J44.9 Chronic obstructive pulmonary disease, unspecified; K22.70 Barrett's esophagus without dysplasia; G47.00 Insomnia, unspecified; Z87.891 Personal history of nicotine dependence; Z79.84 Long term (current) use of oral hypoglycemic drugs; Z79.02 Long term (current) use of antithrombotics/antiplatelets; Z79.891 Long term (current) use of opiate analgesic; Z79.899 Other long term (current) drug therapy; Z88.5 Allergy status to narcotic agent; Z88.8 Allergy status to other drugs, medicaments and biological substances

== ENCOUNTER → 2021-02-03 | Outpatient (CLI) | payer OTHER | LOC: M PAIN 10:00 | PROVIDERS: ATTEND Anesthesiology | DX: M54.5 Low back pain (principal); G89.29 Other chronic pain; E11.9 Type 2 diabetes mellitus without complications; G47.33 Obstructive sleep apnea (adult) (pediatric); G40.909 Epilepsy, unspecified, not intractable, without status epilepticus; Z86.59 Personal history of other mental and behavioral disorders; Z87.891 Personal history of nicotine dependence; Z88.5 Allergy status to narcotic agent; Z88.8 Allergy status to other drugs, medicaments and biological substances; E66.01 Morbid (severe) obesity due to excess calories; Z68.42 Body mass index [BMI] 45.0-49.9, adult; Z79.82 Long term (current) use of aspirin; Z79.84 Long term (current) use of oral hypoglycemic drugs; Z79.899 Other long term (current) drug therapy ==

== ENCOUNTER → 2021-05-16 | Outpatient (CLI) | payer OTHER | LOC: M PAIN 10:30 | PROVIDERS: ATTEND Anesthesiology | DX: M54.50 Low back pain, unspecified (principal); G89.29 Other chronic pain; E11.9 Type 2 diabetes mellitus without complications; G47.33 Obstructive sleep apnea (adult) (pediatric); Z86.59 Personal history of other mental and behavioral disorders; Z87.891 Personal history of nicotine dependence; Z88.5 Allergy status to narcotic agent; Z88.8 Allergy status to other drugs, medicaments and biological substances; E66.01 Morbid (severe) obesity due to excess calories; Z68.42 Body mass index [BMI] 45.0-49.9, adult; Z79.82 Long term (current) use of aspirin; Z79.84 Long term (current) use of oral hypoglycemic drugs; Z79.899 Other long term (current) drug therapy ==

== ENCOUNTER → 2021-06-15 | Day surgery (SDC) | payer OTHER ==
[~2021-06-15] MED LIST changes: +MIDAZOLAM INJ 2MG/2ML VIAL (J2250 PER 1MG) As Ordered ONE; +OMEP-173 PO; -OMEP-218 PO; +ceFAZolin SOD 2 GM in IV 1 EA IV ONE; +fentaNYL 100 MCG/2 ML INJECTION (J3010) As Ordered ONE; +propofoL 200 MG/20 ML VIAL As Ordered ONE
== END | disposition home or self-care (01) ==
LOC: M SDC 12:58
PROVIDERS: ATTEND Internal Medicine Cardiovascular Disease
DX: Z45.09 Encounter for adjustment and management of other cardiac device (principal); Z53.29 Procedure and treatment not carried out because of patient's decision for other reasons

== ENCOUNTER → 2021-10-11 | Outpatient (CLI) | payer OTHER ==
[~2021-10-11] MED LIST changes: -MIDAZOLAM INJ 2MG/2ML VIAL (J2250 PER 1MG) As Ordered ONE; -ceFAZolin SOD 2 GM in IV 1 EA IV ONE; -fentaNYL 100 MCG/2 ML INJECTION (J3010) As Ordered ONE; -propofoL 200 MG/20 ML VIAL As Ordered ONE
== END ==
LOC: M PAIN 15:15
PROVIDERS: ATTEND Anesthesiology
DX: Z79.891 Long term (current) use of opiate analgesic (principal)

== ENCOUNTER → 2021-10-12 | Outpatient (CLI) | payer OTHER | LOC: M PAIN 15:00 → M TMPAIN 15:00 | PROVIDERS: ATTEND Anesthesiology | DX: M54.50 Low back pain, unspecified (principal); M54.6 Pain in thoracic spine; M47.814 Spondylosis without myelopathy or radiculopathy, thoracic region; G89.29 Other chronic pain; F32.A Depression, unspecified; F43.10 Post-traumatic stress disorder, unspecified; G47.33 Obstructive sleep apnea (adult) (pediatric); I10 Essential (primary) hypertension; E78.5 Hyperlipidemia, unspecified; J44.9 Chronic obstructive pulmonary disease, unspecified; K22.70 Barrett's esophagus without dysplasia; E11.51 Type 2 diabetes mellitus with diabetic peripheral angiopathy without gangrene; M85.80 Other specified disorders of bone density and structure, unspecified site; E29.1 Testicular hypofunction; G40.109 Localization-related (focal) (partial) symptomatic epilepsy and epileptic syndromes with simple partial seizures, not intractable, without status epilepticus; Z87.891 Personal history of nicotine dependence; Z79.891 Long term (current) use of opiate analgesic; Z79.899 Other long term (current) drug therapy; Z79.84 Long term (current) use of oral hypoglycemic drugs; Z88.5 Allergy status to narcotic agent; Z88.8 Allergy status to other drugs, medicaments and biological substances ==

== ENCOUNTER → 2022-09-29 | Outpatient (CLI) | payer OTHER ==
[~2022-09-29] MED LIST changes: -CILO100T PO; +CILO100T3 PO
== END ==
LOC: M PAIN 10:45
PROVIDERS: ATTEND Nurse Practitioner Family
DX: M50.10 Cervical disc disorder with radiculopathy, unspecified cervical region (principal); G89.29 Other chronic pain; E11.9 Type 2 diabetes mellitus without complications; G47.33 Obstructive sleep apnea (adult) (pediatric); I10 Essential (primary) hypertension; Z86.59 Personal history of other mental and behavioral disorders; Z87.891 Personal history of nicotine dependence; Z88.5 Allergy status to narcotic agent; Z88.8 Allergy status to other drugs, medicaments and biological substances; E66.01 Morbid (severe) obesity due to excess calories; Z68.42 Body mass index [BMI] 45.0-49.9, adult; Z79.84 Long term (current) use of oral hypoglycemic drugs; Z79.899 Other long term (current) drug therapy